=== PATIENT | female | born 1945 | race Caucasian/White ===

== ENCOUNTER 2018-08-18 14:29 | Outpatient (REF) | payer MEDICARE, MEDICAID, SELFPAY ==
[2018-08-23 12:03] LABS: Lyme Ab w Rflx to Lyme Confirm Negative
[2018-08-23 16:53] LABS: Anaplasma phagocytophilum Negative (Negative); B. miyamotoi PCR Negative (Negative); Babesia divergens/MO-1 Negative (Negative); Babesia duncani Negative (Negative); Babesia microti Negative (Negative); Ehrlichia chaffeensis Negative (Negative); Ehrlichia ewingii/canis Negative (Negative); Ehrlichia muris eauclairensis Negative (Negative)
== END 2018-08-18 14:49 ==
LOC: NCHCN 14:29
PROVIDERS: PCP Registered Nurse; Visit Provider Registered Nurse
DX: W57.XXXA Bitten or stung by nonvenomous insect and other nonvenomous arthropods, initial encounter (principal); T14.8XXA Other injury of unspecified body region, initial encounter
CPT/HCPCS: 87798; 86618

== ENCOUNTER 2019-06-23 17:04 | Outpatient (REF) | payer MEDICARE, MEDICAID, SELFPAY | END 2019-06-23 17:24 | LOC: NCHCN 17:04 | PROVIDERS: PCP Registered Nurse; Visit Provider Nurse Practitioner Family | DX: Z11.59 Encounter for screening for other viral diseases (principal) ==

== ENCOUNTER 2019-06-23 17:06 | Outpatient (REF) | payer MEDICARE, MEDICAID, SELFPAY ==
[2019-06-25 12:05] LABS: COVID-19 RT-PCR UVMMC Result Negative (Negative)
== END 2019-06-23 17:26 ==
LOC: NCHCN 17:06
PROVIDERS: PCP Registered Nurse; Visit Provider Nurse Practitioner Family
DX: J02.9 Acute pharyngitis, unspecified (principal); Z11.59 Encounter for screening for other viral diseases
CPT/HCPCS: U0003; 87070

== ENCOUNTER 2019-08-11 14:21 | Outpatient (REF) | payer MEDICARE, MEDICAID, SELFPAY ==
[2019-08-12 18:12] LABS: COVID-19 RT-PCR UVMMC Result Negative (Negative)
== END 2019-08-11 14:41 ==
LOC: NCHCN 14:21
PROVIDERS: PCP Registered Nurse; Visit Provider Nurse Practitioner Family
DX: Z03.818 Encounter for observation for suspected exposure to other biological agents ruled out (principal); J02.9 Acute pharyngitis, unspecified
CPT/HCPCS: U0003

== ENCOUNTER 2019-09-28 12:42 | Outpatient (REF) | payer MEDICARE, MEDICAID, SELFPAY ==
[2019-09-28 20:39] LABS: HCT 43.8 % (36.0-46.0); HGB 14.7 g/dL (11.2-15.7); MCH 30.5 pg (27.0-33.0); MCHC 33.6 % (32.0-36.0); MCV 90.9 fL (80-95); MPV 10.3 fL (8.0-11.0); Platelet Count 289 10^3/uL (130-400); RBC 4.82 10^6/uL (3.93-5.22); RDW 11.9 % (11.7-14.6); RDW-SD 39.5 fL; WBC 10.41 10^3/uL (4.4-10.8)
[2019-09-28 20:48] LABS: Anion Gap 7.3 mmol/L (3-11); BUN 13 mg/dL (7-18); C-Reactive Protein 0.18 mg/dL (0.0-0.3); CO2 28.7 mmol/L (21.0-32.0); CREATININE 0.71 mg/dL (0.55-1.02); Calcium 10.1 mg/dL (8.5-10.1); Chloride 105 mmol/L (98-107); Glucose 100 mg/dL (74-106); Potassium 4.2 mmol/L (3.5-5.1); Sodium 141 mmol/L (136-145)
== END 2019-09-28 13:02 ==
LOC: NCHCN 12:42
PROVIDERS: PCP Registered Nurse; Visit Provider Nurse Practitioner Family
DX: R10.9 Unspecified abdominal pain (principal)
CPT/HCPCS: 80048; 85027; 86140

== ENCOUNTER 2019-11-10 01:31 | Outpatient (CLI) | payer MEDICARE, MEDICAID, SELFPAY ==
--- NOTE | 2019-11-10 15:04 | DI.RAD_ITS ---
EXAM: XR KNEE RT 3V AP,LAT,LEANN CLINICAL HISTORY: RT KNEE PAIN,M25.561. TECHNIQUE: 2D digital imaging was performed. COMPARISON: No exams were available for comparison FINDINGS: BONES: No acute fracture is present. No bony destructive lesion is seen. JOINTS: The knee is normally aligned. No joint effusion is seen. Tricompartment degenerative changes are seen characterized by joint space narrowing and periarticular spurring. SOFT TISSUE: Normal. IMPRESSION: Jvfi-fv-aqrgjctf degenerative changes of the right knee. DATA REPOSITORY: RADIATION DOSE DELIVERED:
== END 2019-11-10 01:51 ==
PROVIDERS: PCP Registered Nurse; Visit Provider Physician Assistant
DX: M17.11 Unilateral primary osteoarthritis, right knee (principal)
CPT/HCPCS: 73562

== ENCOUNTER 2019-11-23 16:39 | Outpatient (REF) | payer MEDICARE, MEDICAID, SELFPAY ==
--- NOTE | 2019-11-23 13:05 | SKI_PTH ---
PATIENT: Chichi Kaur LOC: [facility] U#:[id number] AGE/SX: 74/F ROOM: RE11/23/[address]: Cesar Klein : 1945 BED: DIS: 11/23/2019 SPEC #: [id number] RECD: 11/24/19 12:51 STATUS: EVETTE REQ #: [id number] SONIA: 11/23/19 13:[address]: Cesar Klein DEPT: Surgical Specimen RECD BY: Savannah Abdi ENTERED: 11/24/19 12:52 SP TYPE: RUSS GUEVARA DR: Liane Vera Tissues: 1 - SKIN BIOPSY(SHAVE/PUNCH) 2 - SKIN BIOPSY(SHAVE/PUNCH) Procedures: SKIN LEVEL 4 Comments: [id number]
== END 2019-11-23 16:59 ==
LOC: NCHCN 16:39
PROVIDERS: PCP Registered Nurse; Visit Provider Physician Assistant
DX: L82.1 Other seborrheic keratosis (principal)
CPT/HCPCS: 88305

== ENCOUNTER 2020-02-03 16:22 | Outpatient (REF) | payer MEDICARE, MEDICAID, SELFPAY ==
[2020-02-06 16:07] LABS: COVID-19 RT-PCR UVMMC Result Negative (Negative)
== END 2020-02-03 16:42 ==
LOC: NCHCN 16:22
PROVIDERS: PCP Registered Nurse; Visit Provider Nurse Practitioner Family
DX: R51.9 Headache, unspecified (principal); R11.0 Nausea
CPT/HCPCS: U0003

== ENCOUNTER 2020-06-21 16:06 | Outpatient (REF) | payer MEDICARE, MEDICAID, SELFPAY ==
[2020-06-21 15:40] LABS: Abs Immature Grans 0.02 10^3/uL (0.0-0.06); Absolute Basophil Count 0.04 10^3/uL (0.0-0.2); Absolute Eosinophil Count 0.05 10^3/uL (0.0-0.7); Absolute Lymphocyte Count 1.67 10^3/uL (1.2-3.4); Absolute Neutrophil Count 4.82 10^3/uL (1.2-6.7); Basophils % 0.6; Eosinophils % 0.7; HCT 41.7 % (36.0-46.0); HGB 14.1 g/dL (11.2-15.7); Immature Grans % 0.3; Lymphocytes % 23.9; MCH 30.3 pg (27.0-33.0); MCHC 33.8 % (32.0-36.0); MCV 89.7 fL (80-95); MPV 10.5 fL (8.0-11.0); Monocytes % 5.7; Neutrophils % 68.8; Nucleated RBC 0 %; Platelet Count 284 10^3/uL (130-400); RBC 4.65 10^6/uL (3.93-5.22); RDW 11.9 % (11.7-14.6); RDW-SD 38.7 fL
[2020-06-21 15:57] LABS: ALT 26 U/L (14-59); AST 16 U/L (15-37); Albumin 4.1 g/dL (3.4-5.0); Alkaline Phosphatase 55 U/L (46-116); Anion Gap 8.7 mmol/L (3-11); BUN 19 mg/dL (7-18); Bilirubin, Total 0.5 mg/dL (0.2-1.0); CO2 28.3 mmol/L (21.0-32.0); CREATININE 0.7 mg/dL (0.55-1.02); Calcium 10.3 mg/dL (8.5-10.1); Chloride 107 mmol/L (98-107); Glucose 133 mg/dL (74-106); Potassium 3.9 mmol/L (3.5-5.1); Sodium 144 mmol/L (136-145)
== END 2020-06-21 16:07 | disposition home or self-care (01) ==
LOC: NCHCN 16:06
PROVIDERS: PCP Registered Nurse; Visit Provider Physician Assistant Medical
DX: R19.7 Diarrhea, unspecified (principal)
CPT/HCPCS: 80053; 85025

== ENCOUNTER 2020-06-22 17:24 | Outpatient (REF) | payer MEDICARE, MEDICAID, SELFPAY ==
[2020-06-22 12:03] LABS: C Diff PCR Negative (Negative)
[2020-06-23 11:02] LABS: Campylobacter PCR Negative (Negative); Salmonella PCR Negative (Negative); Shiga Toxin PCR Negative (Negative); Shigella/Enteroinvasive Ecoli Negative (Negative)
== END 2020-06-22 17:25 | disposition home or self-care (01) ==
LOC: NCHCN 17:24
PROVIDERS: PCP Registered Nurse; Visit Provider Physician Assistant Medical
DX: R19.7 Diarrhea, unspecified (principal)
CPT/HCPCS: 87329; 87493; 87505; 83630; 87177

== ENCOUNTER 2020-06-26 02:13 | Outpatient (CLI) | payer MEDICARE, MEDICAID, SELFPAY ==
--- NOTE | 2020-06-26 | DI.US_ITS ---
Exam(s) US ABDOMEN LIMITED EXAM: US ABDOMEN LIMITED INDICATION: EPIGASTRIC PAIN,,R10.13 COMPARISON: No exams were available for comparison TECHNIQUE: Ultrasound abdomen performed using standard protocol FINDINGS: Abdominal ultrasound was performed according to the usual protocol. The liver is normal in size and shape. No focal hepatic lesion seen. Note is made of cholelithiasis. There is no gallbladder wall thickening. There is no biliary dilata tion. There is no pericholecystic fluid collection. Pancreas appears intact as visualized. Spleen is unremarkable in appearance with no focal lesion. Kidneys are normal in size and shape. No renal mass, hydronephrosis, or nephrolithiasis. Abdominal aorta and IVC are of normal diameter. IMPRESSION: Cholelithiasis. Examination is otherwise within normal limits.
== END 2020-06-26 02:33 ==
PROVIDERS: PCP Registered Nurse; Visit Provider Physician Assistant Medical
DX: R10.13 Epigastric pain (principal); K80.20 Calculus of gallbladder without cholecystitis without obstruction
CPT/HCPCS: 76705

== ENCOUNTER 2020-07-18 17:56 | Emergency (ER) | payer MEDICARE, MEDICAID, SELFPAY ==
[2020-07-18 18:04] VITALS: BP 160/91; PULSE 83; RESP 18; TEMP 36.6; O2SAT 96
[2020-07-18 18:34] LABS: Bilirubin Negative (Negative); Blood Large (Negative); Clarity Clear (Clear); Glucose Negative (Negative); Ketones Negative (Negative); Leukocyte Esterase Small (Negative); Nitrite Positive (Negative); Specific Gravity >= 1.030 (1.005-1.025); Urobilinogen 0.2 EU/dL (Up TO 0.2); pH 5.5 (5-8)
[2020-07-18 18:42] LABS: Bacteria Few HPF (Negative); C & S Indicated? Yes; Casts Negative LPF (Negative); Crystals Negative HPF (Negative); Epithelial Cells Rare HPF (Negative); Mucus Trace (Negative); Other Cells Negative (Negative); WBC >50 HPF (0-5)
--- NOTE | 2020-07-18 20:03 | W.ED.GENAD ---
Discharge Plan Disposition Patient Disposition: HOME Condition: Stable Discharge Details Clinical Impression: Acute UTI Primary Care Provider: Cesar Klein ED Provider: Alexandre Cotter Home Meds and New Rx's Prescriptions: New nitrofurantoin monohyd/m-cryst [Macrobid] 100 mg capsule 100 mg PO BID Qty: 14 RF: 0 Continued diazepam [Valium] 5 mg tablet 5 mg PO DAILY PRNRF: 0 hydrochlorothiazide 12.5 mg tablet 12.5 mg PO DAILY PRNRF: 0 Excedrin Extra Strength 250-250-65 mg tablet 1 tab PO ONCE RF: 0 carvedilol 6.25 mg tablet 6.25 mg PO BID RF: 0 Discharge Instructions Instructions: Urinary Tract Infection in Women (ED) Additional Instructions: Macrobid as directed. Mzen-ukt-dvxfhlt Azo as directed. Plenty of fluids to avoid dehydration. Please watch for new or worsening symptoms and return to the ER for any concerns. Otherwise contact your primary care office tomorrow to discuss your ER visit and need for outpatient reevaluation. Medical Decision Making 75-year-old female, past medical history of hypertension, presents to the ER concern for UTI. Clinically she appears well, nontoxic, afebrile, abdomen, back unremarkable. Will obtain urinalysis and reassess. Urinalysis reveals large blood positive nitrate, 10-20 red cells, greater than 50 white cells. Urinalysis consistent with UTI. Clinically no suspicion for infected stone. Discussed options, patient agreeable to antibiotics. She does not want to take Keflex or Bactrim. She is agreeable to taking the Macrobid. First dose to be given now. She has no additional questions or concerns and is comfortable discharge at this time encouraged to return to the ER for new or worsening symptoms. Medical Records Medical records reviewed: Yes I reviewed the patient's medical records. Lab Data Lab results reviewed: Yes I reviewed the patient's lab results. Labs: 07/18/20 18:18 Urine - Reflex from Ua Urine Culture - Pending Laboratory Tests Range/Units 07/18/20 18:18 Urine Color (Yellow) Yellow Urine Clarity (Clear) Clear Urine pH (5-8) 5.5 Ur Specific [place] (1.005-1.025) >= 1.030 H Urine Protein (Negative) mg/dL 100 H Urine Ketones (Negative) mg/dL Negative Urine Blood (Negative) Large H Urine Nitrite (Negative) Positive H Urine Bilirubin (Negative) Negative Urine Urobilinogen (Up TO 0.2) EU/dL 0.2 Ur Leukocyte Esterase (Negative) Small H Urine RBC (0-2) HPF 10-20 H Urine WBC (0-5) HPF >50 H Ur Epithelial Cells (Negative) HPF Rare Urine Crystals (Negative) HPF Negative Urine Bacteria (Negative) HPF Few Urine Casts (Negative) LPF Negative Urine Mucus (Negative) Trace Urine Other (Negative) Negative Ur Culture Indicated? Yes Urine Glucose (Negative) mg/dL Negative HPI General Mode of arrival: ambulatory. Date/Time Provider Initiated Documentation: 07/18/20 18:02. Limitations to Documentation: no limitations. Information obtained by: patient. HPI Narrative: This is a 75-year-old female who reports past history of hypertension, sensitivity to most medications, presenting to the ER for concern of the potential UTI. She reports urinary frequency, feeling like she is not emptying completely, also pressure in her suprapubic region. She denies any fever, abdominal pain, nausea, vomiting, vaginal bleeding or discharge, dysuria, back pain, diarrhea work constipation. Patient reports that she had a UTI previously that felt similarly. She has no additional questions or concerns at this time. Related Data Home Medications Medication Instructions Recorded Confirmed lhbjykg-sgijoxcjqrkzb-gpneccgc 250 1 tab PO ONCE 07/12/20 07/18/20 mg-250 mg-65 mg tablet carvedilol 6.25 mg tablet 6.25 mg PO BID tab 07/12/20 07/18/20 diazepam 5 mg tablet 5 mg PO DAILY PRN tab 07/12/20 07/18/20 hydrochlorothiazide 12.5 mg tablet 12.5 mg PO DAILY PRN 07/12/20 07/18/20 nitrofurantoin monohyd/m-cryst 100 mg PO BID #14 cap 07/18/20 [Macrobid] Previous Rx's Medication Instructions Recorded nitrofurantoin monohyd/m-cryst 100 mg PO BID #14 cap 07/18/20 [Macrobid] Allergies Allergy/AdvReac Type Severity Reaction Status Date / Time aspartame Allergy Severe anaphylaxis Verified 07/18/20 18:12 psyllium [From Metamucil] Allergy Severe anaphylaxis Verified 07/18/20 18:12 metronidazole [From Flagyl] Allergy Unknown violent Verified 07/18/20 18:12 reaction General Stated Complaint: Urinary SHOBHA: 3 Review of Systems Constitutional Constitutional: Denies fever(s) Cardiovascular Cardiovascular: Denies chest pain and Denies dyspnea Respiratory Respiratory: Denies cough and Denies dyspnea Gastrointestinal Gastrointestinal: Denies abdominal pain, Denies nausea and Denies vomiting Genitourinary Genitourinary: Reports dysuria and Reports urinary urgency Musculoskeletal Musculoskeletal: Denies back pain Integumentary/Breasts Skin/Breast: Denies rash [facility], [facility] Social History Smoking/Tobacco Use Status: Never Smoking risk assessment performed?: Yes Alcohol Intake: current Alcohol Intake frequency: a few times a week Drug use: Never Do you feel safe at home: Yes Do you feel safe in your relationship?: Yes Exam Const General: cooperative, healthy appearing, comfortable and no acute distress Orientation: alert and awake HENMT Head: normal to inspection, normocephalic and atraumatic Eyes General: appearance normal, both eyes and all related structures Conjunctivae: conjunctivae normal Neck Neck: normal visual inspection, trachea midline and supple Resp Effort & Inspection: normal respiratory effort and able to speak in complete sentences Auscultation: clear to auscultation bilaterally Cardio Rate: regular rate Rhythm: regular rhythm GI Palpation: soft, not firm, no guarding, no pulsatile masses and nontender Back/Spine/Pelvis Back: No back tenderness Skin General skin exam: no rashes or lesions noted Neuro General: patient alert, patient awake, moves all extremities and no focal motor deficits Cognition: normal cognition Speech: speech normal Gait: normal gait Sensory Exam: no sensory deficits noted Psych Appearance: grossly normal Mental Status: mental status grossly normal Course Vital Signs Vital signs: Vital Signs Temperature 36.6 C 07/18/20 18:04 Pulse 83 07/18/20 18:04 Respiratory Rate 18 07/18/20 18:04 Blood Pressure 160/91 H 07/18/20 18:04 Pulse Oximetry 96 07/18/20 18:04 Temperature 36.6 C 07/18/20 18:04 Temperature Source Temporal Artery Scan 07/18/20 18:04 Pulse 83 07/18/20 18:04 Respiratory Rate 18 07/18/20 18:04 Respiratory Effort Non-Labored 07/18/20 18:10 Blood Pressure 160/91 H 07/18/20 18:04 Blood Pressure Position Sitting 07/18/20 18:04 Pulse Oximetry 96 07/18/20 18:04 Oxygen Delivery Method Room Air 07/18/20 18:04 Oxygen Flow Rate 0 07/18/20 18:04 Pain Level 10 07/18/20 18:04 Lab/Test Results Lab/Test Results: 07/18/20 18:18 Urine - Reflex from Ua Urine Culture - Pending Laboratory Tests Range/Units 07/18/20 18:18 Urine Color (Yellow) Yellow Urine Clarity (Clear) Clear Urine pH (5-8) 5.5 Ur Specific [place] (1.005-1.025) >= 1.030 H Urine Protein (Negative) mg/dL 100 H Urine Ketones (Negative) mg/dL Negative Urine Blood (Negative) Large H Urine Nitrite (Negative) Positive H Urine Bilirubin (Negative) Negative Urine Urobilinogen (Up TO 0.2) EU/dL 0.2 Ur Leukocyte Esterase (Negative) Small H Urine RBC (0-2) HPF 10-20 H Urine WBC (0-5) HPF >50 H Ur Epithelial Cells (Negative) HPF Rare Urine Crystals (Negative) HPF Negative Urine Bacteria (Negative) HPF Few Urine Casts (Negative) LPF Negative Urine Mucus (Negative) Trace Urine Other (Negative) Negative Ur Culture Indicated? Yes Urine Glucose (Negative) mg/dL Negative
[2020-07-18] MEDS: MacroBID 100 MG CAP PO (20:09)
== END 2020-07-18 20:24 | disposition home or self-care (01) ==
PROVIDERS: Emergency Provider Physician Assistant; PCP Physician Assistant
DX: N39.0 Urinary tract infection, site not specified (principal)
CPT/HCPCS: 87077; 99283; 81003; 81015; 87086; 87186

== ENCOUNTER → 2020-07-20 10:55 | Outpatient (BNVA) | payer MEDICARE, MEDICAID, SELFPAY | PROVIDERS: PCP Physician Assistant; Referring Provider Registered Nurse; Visit Provider Surgery | DX: R10.13 Epigastric pain (principal); R10.11 Right upper quadrant pain | CPT/HCPCS: 99203; 99214 ==

== ENCOUNTER → 2020-09-18 10:11 | Outpatient (BNVA) | payer MEDICARE, MEDICAID, SELFPAY | PROVIDERS: PCP Physician Assistant; Referring Provider Physician Assistant; Visit Provider Surgery | DX: K80.20 Calculus of gallbladder without cholecystitis without obstruction (principal); R10.13 Epigastric pain | CPT/HCPCS: 99212; 99213 ==

== ENCOUNTER 2020-09-21 02:40 | Outpatient (CLI) | payer MEDICARE, MEDICAID, SELFPAY ==
[2020-09-21 11:51] LABS: Source Nasal/Nares
[2020-09-21 13:39] LABS: COVID-19 PCR Negative (Negative)
== END 2020-09-21 02:41 | disposition home or self-care (01) ==
LOC: LBO 02:40
PROVIDERS: PCP Physician Assistant; Visit Provider Surgery
DX: Z20.822 Contact with and (suspected) exposure to COVID-19 (principal); Z01.818 Encounter for other preprocedural examination
CPT/HCPCS: 87635

== ENCOUNTER 2020-09-24 11:10 | Day surgery (SDC) | payer MEDICARE, MEDICAID, SELFPAY ==
--- NOTE | 2020-09-24 06:56 | W.PM.ENDDOP ---
Date of service: 09/24/20 Time of Service: 12:29 Endoscopy Report DATE OF PROCEDURE: 09/24/20 PRE-OP DIAGNOSIS: Abdominal pain POST-OP DIAGNOSIS: other (Gastritis with ulcers, esophagitis, Hiatal hernia) PROCEDURE: EGD with biopsies SURGEON: Dolly Manzanares ANESTHESIA TYPE: General:No Airway (ASA 2/Chidi Renee CRNA) ESTIMATED BLOOD LOSS: 3 PATHOLOGY: other (Antrum Bx, GE junction bx, ) COMPLICATIONS: None DISPOSITION: same day INDICATIONS: Epigastric pain: I had a long discussion with Ms. Kaur regarding her symptoms. As her pain started after having violent vomiting and diarrhea from possible food poisoning and that on exam her pain is really epigastric I suspect she has some gastritis. The antibiotics are probably not helping that at this point. She is on probiotics. She didn't start the Pepcid I prescribed. We discussed doing an upper endoscopy to look for inflammation in her stomach. I discussed the procedure as well as the risks and benefits and she agrees to proceed. Covid testing prior to procedure Risks, benefits and complications have been reviewed. Complications include but are not limited to bleeding, pain, perforation, sore throat, aspiration, and adverse reaction to the medications. Questions were entertained and answered to their satisfaction and they wished to proceed. No guarantees were given or implied. EGD under sedation FINDINGS: Gastritis with ? shallow ulcers Inflammation at the GE junction Small Hiatal hernia PROCEDURE DESCRIPTION: After informed consent was obtained the patient was take to the procedure room and placed in a supine position. Monitors were applied and a time out was done. The patients name, date of , procedure type, allergies to medications and metal in their body was reviewed. A bite block was placed and the patient was sedated. Once sedated and comfortable the gastroscope was advanced through the oropharynx which was grossly normal into the esophagus. The proximal and mid-esophagus were normal. In the distal esophagus there was mild inflammation noted. The scope was advanced into the stomach and through the pylorus into the 3rd portion of the duodenum. The duodenum was noted to be normal. The scope was retracted back into the stomach and biopsies were done to rule out H. pylori. There were some shallow ulcers. The scope was retroflexed. The cardia and fundus were noted to be normal. There was a small hiatal hernia noted. The scope was retracted back into the esophagus and biopsies were done of the GE junction to rule out Benitez's. The Z line was regular. The GE junction was at 34 cm. The scope was removed and the patient was woken up and taken back to [facility] in stable condition.
--- NOTE | 2020-09-24 06:57 | W.PM.DSUDISC ---
Discharge Plan Disposition Patient Disposition: HOME Condition: Good Discharge Details Reason For Visit: EGD Attending Provider: Dolly Manzanares Primary Care Provider: Cesar Klein Home Meds and New Rx's Prescriptions: Continued multivitamin Tablet 1 tab PO DAILY RF: 0 diazepam [Valium] 5 mg tablet 5 mg PO DAILY PRNRF: 0 hydrochlorothiazide 12.5 mg tablet 12.5 mg PO DAILY PRNRF: 0 Excedrin Extra Strength 250-250-65 mg tablet 1 tab PO ONCE RF: 0 carvedilol 6.25 mg tablet 6.25 mg PO BID RF: 0 potassium chloride 10 mEq Tablet Extended Release 10 meq PO PRN PRNRF: 0 Discharge Instructions Instructions: Diet for Stomach Ulcers and Gastritis (ED), Gastritis (DC), Esophagitis (DC), Hiatal Hernia (DC) Additional Instructions: Findings: inflammation of the stomach and esophagus Please call if you develop: fevers >101.5 Nausea or Vomiting Abdominal pain that is not transient Rectal bleeding that is more then a tbsp A hard abdomen and inability to pass gas DAY SURGERY UNIT POST ENDOSCOPY INSTRUCTIONS Instructions for everyone who is given Anesthesia: For your safety, please do the following for the next 24 Hours: a. Do not drive or operate dangerous equipment b. Do not drink alcohol beverages or use any recreational drugs for the first 24 hours or while taking pain medications. The medications in your body may have a reaction that can be dangerous. c. Do not make any important decisions or sign any important papers 1. Generally there are no restrictions on your activity after a day or so has gone by, but you may feel a bit fatigued for a few days. 2. After you arrive home you may have a light meal and return to a normal diet as you can tolerate it without feeling sick to your stomach. 3. After surgery, you may feel pain or discomfort. This should be only transient, but if it persists please contact your doctor. 4. If there are any questions regarding the findings of your procedure, please feel free to contact your doctor. 6. If you are unable to contact your doctor with a problem, contact the hospital at [phone]. 7. Continue all your regular medications unless directed otherwise. I understand the above instructions and have no questions. Signature of Patient or Responsible Adult Escort Date/Time Name of Responsible Adult Escort Signature of Nurse Date/Time Activity:: Activity as Tolerated Diet:: As Tolerated Discharge Orders Discharge Orders: Discharge Order (Routine); Ordered 09/24/20 Ordered By: Dolly Manzanares
[2020-09-24 11:24] VITALS: BP 178/111; RESP 84; TEMP 36.7; O2SAT 98
--- NOTE | 2020-09-24 11:51 | ANES.PREOP_ITS ---
General Info Date of Service Date Performed: 09/24/20 Height: 5 ft 5 in Weight: 57.3 kg Body Mass Index (BMI): 20.9 Surgical Procedure: Operation Date: 09/24/20 11:35 Proposed Procedures Side Surgeon p Gastroscopy Dolly Manzanares MD Meds Allergies and Home Medications Allergies Allergy/AdvReac Type Severity Reaction Status Date / Time aspartame Allergy Severe anaphylaxis Verified 09/24/20 11:38 psyllium [From Metamucil] Allergy Severe anaphylaxis Verified 09/24/20 11:38 metronidazole [From Flagyl] Allergy Unknown violent Verified 09/24/20 11:38 reaction Home Medication Medication Instructions Recorded qthjwah-stvjlwkfugtib-obtgpinj 250 1 tab PO ONCE 07/12/20 mg-250 mg-65 mg tablet carvedilol 6.25 mg tablet 6.25 mg PO BID tab 07/12/20 diazepam 5 mg tablet 5 mg PO DAILY PRN tab 07/12/20 hydrochlorothiazide 12.5 mg tablet 12.5 mg PO DAILY PRN 07/12/20 multivitamin 1 tab PO DAILY 07/20/20 potassium chloride 10 meq PO PRN PRN 09/24/20 Current Visit Medications: Current Medications Generic Name Dose Route Start Last Admin Trade Name Freq PRN Reason Stop Dose Admin Hyoscyamine Sulfate 0.125 mg 09/24/20 06:57 Hyoscyamine 0.125 Mg Sl/Oral/Chew SL DIRECTED PRN Ringer's Solution 1,000 mls @ 80 mls/hr 09/24/20 06:00 IV 10/21/20 23:59 INFUSION [facility] IV Miscellaneous Supplies 1 each 09/24/20 06:00 Iv Access IV 10/21/20 23:59 DIRECTED [facility] Ondansetron HCl 4 mg 09/24/20 06:57 Ondansetron 4 Mg/2 Ml Vial IVP Q4H PRN PRN Nausea / Vomiting Sodium Chloride 0 ml 09/24/20 06:00 Normal Saline Flush 10 Ml Syr IV 10/21/20 23:59 PRN PRN Sodium Chloride 0 ml 09/24/20 06:00 Normal Saline 10 Ml Vial IJ 10/21/20 23:59 DIRECTED PRN Sterile Water 0 ml 09/24/20 06:00 Water,Injection,Sterile 10 Ml Vial IJ 10/21/20 23:59 DIRECTED PRN PFSH Active Problems Active Problems: Problem Status Onset Code Epigastric pain R10.13 Diarrhea R19.7 Constipation K59.00 Right lower quadrant abdominal pain R10.31 Acute UTI N39.0 Cholelithiasis K80.20 Weight loss R63.4 Anxiety F41.9 Seborrheic keratoses L82.1 Right knee pain M25.561 Hiatal hernia K44.9 Essential hypertension I10 Bilateral cataracts H26.9 Irritable bowel syndrome with diarrhea K58.0 Internal hemorrhoids K64.8 Medical History Medical History Anxiety Asymmetrical sensorineural hearing loss Bilateral cataracts Essential hypertension Hiatal hernia Internal hemorrhoids Irritable bowel syndrome with diarrhea Referred otalgia of right ear Right knee pain Seborrheic keratoses Sensation of fullness in both ears Weight loss Surgical History Surgical History Hx of hysterectomy Tobacco Smoking/Tobacco Use Status: Never Alcohol Alcohol Intake: current Alcohol intake frequency: 0-2 drinks per day Alcohol type: beer Substance Use Substance use: Never Substance use type: does not use Vital Signs and Lab Results Vital Signs Most Recent Vital Signs in EMR: Most Recent Vital Signs Temp Resp BP Pulse Ox 36.7 C 84 H 178/111 H 98 09/24/20 11:24 09/24/20 11:24 09/24/20 11:24 09/24/20 11:24 Lab Results Blood Type / Crossmatch: No Data to Display Complete Blood Count: No Data to Display Complete Metabolic Panel: No Data to Display Liver Function Panel: No Data to Display Coagulation Panel: No Data to Display Cardiac Panel: No Data to Display Arterial Blood Gas: No Data to Display Venous Blood Gas: No Data to Display Pancreas Panel: No Data to Display Thyroid Panel: No Data to Display Infectious Disease: Coronavirus (COVID-19)(PCR) Negative (Negative) 09/21/20 08:30 09/21/20 Coronavirus 2019 Source Nasal/Nares 09/21/20 08:30 09/21/20 Blood Cultures: No Data to Display Toxicology Panel: No Data to Display Anesthesia Assessment and Plan Anesthesia History Personal History: No History of Anesthesia Complications and Delayed Emergence Family History: No Family History of Anesthesia Complications Exercise Tolerance Exercise Tolerance: Metabolic Equivalents>4 Pertinent Negatives Pertinent Negatives: No Symptoms of GERD, No Major Cardiovascular Symptoms or Complaints and No Major Pulmonary Symptoms or Complaints Cardiac & Pulmonary Exam Cardiac Exam: Normal S1/S2 Heart Sounds Pulmonary Exam: Clear Bilateral Breath Sounds Airway Exam Known Difficult Airway: No Mallampati Class: 2 Mouth Opening: Normal (> 3cm) Thyromental Distance: Greater than 3 cm Neck Range of Motion: Full ROM Neck Circumference: Normal Teeth Condition: Normal Dentition ASA Classification ASA Score: ASA 2 Emergency Case?: No NPO Status NPO Status: NPO Clears >2 hours, Solids >8 hours Anesthesia Plan Resuscitation Status: Full Code Anesthesia Technique: General Anesthesia Airway Planned: Natural Airway Monitors Used: Standard Monitors
[2020-09-24] MEDS: Lactated Ringers 1,000 ML 80 ML IV (11:53)
[2020-09-24 12:01] VITALS: BMI 20.9
--- NOTE | 2020-09-24 12:23 | STOM_PTH ---
PATIENT: Chichi Kaur LOC: [facility] U#:[id number] AGE/SX: 75/F ROOM: RE09/24/[address]: Dolly Manzanares MD : 1945 BED: DIS: 09/24/2020 SPEC #: [id number] RECD: 09/24/20 12:59 STATUS: EVETTE REQ #: [id number] SONIA: 09/24/20 12:[address]: Dolly Manzanares DEPT: Surgical Specimen RECD BY: Savannah Abdi ENTERED: 09/24/20 13:00 SP TYPE: STOMACH OTHR DR: Cesar Klein Tissues: 1 - STOMACH BIOPSY 2 - ESOPHAGUS BIOPSY Procedures: GROSS AND MICRO LEVEL 4 Comments: [id number]
[2020-09-24 12:30] VITALS: BP 114/79; PULSE 74; RESP 16; TEMP 36.7; O2SAT 97
[2020-09-24 12:59] VITALS: BP 155/92; PULSE 67; RESP 16; TEMP 36.4; O2SAT 96
--- NOTE | 2020-09-24 14:13 | W.ANESPOSTOP ---
Postoperative Evaluation Date, Time and Location Date Performed: 09/24/20 Time Performed: 13:05 Patient Location: Day Surgery Unit Vital Signs Most Recent Imported Vital Signs: Most Recent Vital Signs Temp Pulse Resp BP Pulse Ox 36.4 C L 67 16 155/92 H 96 09/24/20 12:59 09/24/20 12:59 09/24/20 12:59 09/24/20 12:59 09/24/20 12:59 Pain Score Most Recent Pain Score: Most Recent Pain Score Pain Level 1 09/24/20 12:59 Assessment Mental Status: Arousable with meaningful communication Airway and Respiratory Function: Patent airway with normal (patient baseline) respiratory exam Cardiovascular Function: Hemodynamically Stable Hydration Status: Adequately Hydrated Nausea & Vomiting: No Nausea or Vomiting Pain: Pt. Denies Any Pain Peripheral Nerve Block: Patient did not receive a nerve block
== END 2020-09-24 13:25 | disposition home or self-care (01) ==
LOC: SUR 11:11
PROVIDERS: PCP Physician Assistant; Visit Provider Surgery
PROC: 0DJ68ZZ Inspection of Stomach, Via Natural or Artificial Opening Endoscopic (ICD-10-PCS; CPT 43235; principal; 2020-09-24 11:30)
DX: K25.9 Gastric ulcer, unspecified as acute or chronic, without hemorrhage or perforation (principal); K29.70 Gastritis, unspecified, without bleeding; K20.90 Esophagitis, unspecified without bleeding; K44.9 Diaphragmatic hernia without obstruction or gangrene; K31.89 Other diseases of stomach and duodenum; K22.70 Barrett's esophagus without dysplasia
CPT/HCPCS: 43239; 88305; J2001

== ENCOUNTER 2020-12-24 09:49 | Outpatient (REF) | payer MEDICARE, MEDICAID, SELFPAY ==
[2020-12-24 16:07] LABS: Abs Immature Grans 0.01 10^3/uL (0.0-0.06); Absolute Basophil Count 0.05 10^3/uL (0.0-0.2); Absolute Eosinophil Count 0.08 10^3/uL (0.0-0.7); Absolute Monocyte Count 0.54 10^3/uL (0.1-0.8); Absolute Neutrophil Count 2.17 10^3/uL (1.2-6.7); Basophils % 1.2; Eosinophils % 1.9; HCT 44.7 % (36.0-46.0); HGB 14.3 g/dL (11.2-15.7); Immature Grans % 0.2; Lymphocytes % 31.3; MCH 29.9 pg (27.0-33.0); MCV 93.3 fL (80-95); MPV 10.6 fL (8.0-11.0); Neutrophils % 52.4; Nucleated RBC 0 %; Platelet Count 275 10^3/uL (130-400); RBC 4.79 10^6/uL (3.93-5.22); RDW 11.7 % (11.7-14.6); WBC 4.15 10^3/uL (4.4-10.8)
[2020-12-24 16:38] LABS: ALT 28 U/L (14-59); AST 19 U/L (15-37); Alkaline Phosphatase 55 U/L (46-116); Anion Gap 7.3 mmol/L (3-11); BUN 15 mg/dL (7-18); Bilirubin, Total 0.4 mg/dL (0.2-1.0); CO2 30.7 mmol/L (21.0-32.0); CREATININE 0.7 mg/dL (0.55-1.02); Calcium 10.1 mg/dL (8.5-10.1); Calculated LDL 118 mg/dL (<100); Chloride 106 mmol/L (98-107); Cholesterol 195 mg/dL (<200); Glucose 98 mg/dL (74-106); HDL Cholesterol 54 mg/dL (40-60); Potassium 4.6 mmol/L (3.5-5.1); Sodium 144 mmol/L (136-145); Total Protein 6.9 g/dL (6.4-8.2); Triglyceride 116 mg/dL (<150)
== END 2020-12-24 09:50 | disposition home or self-care (01) ==
LOC: NCHCN 09:49
PROVIDERS: PCP Physician Assistant; Visit Provider Physician Assistant
DX: I10 Essential (primary) hypertension (principal); R03.0 Elevated blood-pressure reading, without diagnosis of hypertension; Z86.39 Personal history of other endocrine, nutritional and metabolic disease; R63.4 Abnormal weight loss
CPT/HCPCS: 80053; 80061; 85025

== ENCOUNTER 2021-04-30 00:34 | Outpatient (CLI) | payer MEDICARE, MEDICAID, SELFPAY ==
--- NOTE | 2021-04-30 11:30 | DI.MAMMO_ITS ---
Exam(s) MAMMO SCREENING EXAM: MAMMO SCREENING CLINICAL HISTORY: SCREENING, Z12.39 TECHNIQUE: Mammograms were interpreted according to the usual protocol including computer analysis w [employer] CAD system, tomosynthesis and C-view imaging. COMPARISON: 2011 and 2015 FINDINGS: The breasts are composed of scattered fibroglandular densities, Breast Density category B. No suspicious masses or suspicious microcalcifications are seen. No skin thickening or abnormal axillary lymph nodes are seen. There has been no significant change from prior exams. IMPRESSION: BI-RADS Category 1, Negative mammogram Yearly screening mammography is recommended. Breast Density - Category B, scattered fibroglandular densities. A negative radiographic report should not delay biopsy if a dominant or clinically suspicious mass is present. Up to ten percent of cancers are not identified on mammography. A negative report may reinforce clinical impression. Adenosis and dense breasts may obscure an underlying neoplasm. False positive reports average 6 to 10%. Patient will receive a letter notifying them of these results.
== END 2021-04-30 00:54 ==
PROVIDERS: PCP Physician Assistant; Visit Provider Physician Assistant
DX: Z12.31 Encounter for screening mammogram for malignant neoplasm of breast (principal)
CPT/HCPCS: 77063; 77067

== ENCOUNTER 2021-05-03 00:27 | Outpatient (CLI) | payer MEDICARE, MEDICAID, SELFPAY ==
--- NOTE | 2021-05-03 07:00 | DI.MRI_ITS ---
Exam(s) MR BRAIN WO EXAM: MR BRAIN WO CLINICAL HISTORY: chronic daily headache,R51.9 TECHNIQUE: Multiplanar multisequence MRI of the brain was performed. COMPARISON: No exams were available for comparison FINDINGS: There is mild generalized cerebral atrophy. There are multiple areas of abnormal signal in periventricular white matter sparing the corpus callos um consistent with microvascular ischemic changes. There is per probable tiny old lacunar infarct in the medial temporal lobe on the right.. The orbital and temporal bone structures appear intact as does the pituitary. Diffusion weighted imaging shows no evidence of acute or subacute infarction. Susceptibility weighted imaging shows no evidence of intracranial hemorrhage. There is normal flow void in the [place] vasculature. IMPRESSION: No evidence of acute intracranial process. DATA REPOSITORY:
== END 2021-05-03 00:47 ==
PROVIDERS: PCP Physician Assistant; Visit Provider Otolaryngology
DX: R51.9 Headache, unspecified (principal); G31.89 Other specified degenerative diseases of nervous system
CPT/HCPCS: 70551

== ENCOUNTER → 2022-01-17 13:12 | Outpatient (CLI) | payer MEDICARE, MEDICAID, SELFPAY ==
--- NOTE | 2022-01-17 13:10 | DI.RAD_ITS ---
Exam(s) XR CERVICAL SPINE COMP 4-5V EXAM: XR CERVICAL SPINE COMP 4-5V CLINICAL HISTORY: CERVICALGIA, M54.2, S/P IMPACT INJURY SEVERAL WEEKS AGO. TECHNIQUE: 2D digital imaging was performed. COMPARISON: No exams were available for comparison FINDINGS: There is apparent fusion between the facets of C2 and C3. There is severe facet degenerative changes at C3-4 through C6-7. There is moderate narrowing of the C4-5 disc. There is mild retrolisthesis a t this level secondary to the facet degenerative changes. There is severe narrowing of the C5-6 and C7 disc spaces. Neural foraminal narrowing is noted from C3-4 through C6-7 on the left and at C4-5 a nd C5-6 on the right. The airway appears intact. Visualized soft tissues are unremarkable. IMPRESSION: Advanced degenerative disc changes and facet degenerative changes. DATA REPOSITORY: RADIATION DOSE DELIVERED:
--- OUTSIDE RECORDS SUMMARY | 2022-01-17 13:15 | XMS_ITS | Clinical Summary ---
:1945 Author Organization [facility] Address [address] [place] [address] Care Team Providers Name Role Phone Liane Vera WILSON Primary Care Provider [phone] Allergies Active Allergy Reactions Severity Noted Date Comments Amlodipine Metronidazole Violent reacti on Hydrochlorothiazide Psyllium Husk Anaphylaxis High Penicillins 08/30/2012 Phenylalanine Anaphylaxis High 08/30/2012 Phenylephrine High 08/18/2013 Phenylephrine hydrochloride ophthalmic solu tion 2.5% Sulfa (Sulfonamide Low 08/30/2012 Antibiotics) Medications Medication Sig Dispensed Refills Start Date End Date Status carvedilol (COREG) 6.25 mg Take 6.25 mg by mouth 2 times daily . 0 Active tablet DIAZepam (VALIUM) 5 mg Take 2.5 mg 0 Active tablet by mouth every 12 hours as needed for Anxiety. hqkmsul-svysagdmcgsln-mcook Take 0.5 Tabs 0 Active ine (EXCEDRIN MIGRAINE) by mouth as 250-250-65 mg per tablet needed for Headaches. MULTIVITAMIN ORAL Take by 0 Ac tive mouth. hydroCHLOROthiazide Take 12.5 mg 0 Active (HYDRODIURIL) 12.5 mg by mouth tablet daily. Active Problems Problem Noted Date Blepharitis 02/22/2009 Overview: IMO Update Auto Replacement Surgical History Surgery Date Site/Laterality Comments HYSTERECTOMY Medical History Medical History Date Comments Hypertension Family History Medical History Relation Comments Diabetes Brother Macular Degeneration Brother Cancer Father mm Glaucoma Neg Hx Relation Status Comments Brother Father Social History Tobacco Use Types Packs/Day Years Used Date Smoking Tobacco: Never Smokeless Tobacco: Never Alcohol Use Standard Drinks/Week Comments No 0 (1 standard drink = 0.6 oz pure alcoho l) Sex Assigned at Date Recorded Not on file Obstetrics History Last Filed Vital Signs Vital Sign Reading Time Taken Comments Blood Pressure 158/104 08/30/2012 1252 EDT Pulse 76 08/30/2012 1252 EDT Temperature - - Respiratory Rate 18 08/30/2012 1252 EDT Oxygen Saturation - - Inhaled Oxygen Concentration - - Weight 63.5 kg (140 lb) 08/30/2012 1252 EDT Height 165.1 cm (5' 5) 08/30/2012 1252 EDT Body Mass Index 23.3 08/30/2012 1252 EDT Plan of Treatment Health Maintenance Due Date Last Done Comments Hepatitis C Screen 1945 COVID-19 Vaccine (#1) 1945 Fall Risk Screening 05/15/2011 Insurance Payer Benefit Plan / Subscriber ID Effective Phone Address T ype Group Dates MEDICARE MEDICARE A/B [id number] 2011-Prese [address] [place] [address] [place] [id number] Effective for [address] [place] [address] Chichi Kaur Personal/Family Self 1945 [phone] [address] (Home) [place] [address] Chichi Kaur Personal/Family Self 1945 [address] (Home) [place] [address] Care Teams Bailer Operators Supervisor Relationship Specialty Start Date End Date Liane Vera, LACQUER MACHINE FEEDER PCP - General 10/15/18 [address] [place] [address]
--- OUTSIDE RECORDS SUMMARY | 2022-01-17 13:15 | XMS_ITS | Encounter Summary ---
:1945 Author Organization [facility] Address [address] [place] [address] Care Team Providers Name Role Phone Liane Vera WILSON Primary Care Provider [phone] Encounter Details Date Type Department Care Team Description 08/11/2019 Lab Requisition [facility] Outr Resulting Lab, Pathology & Laboratory Provider [facility] [address], [place] [id number] Social History Tobacco Use Types Packs/Day Years Used Date Smoking Tobacco: Never Smokeless Tobacco: Never Alcohol Use Standard Drinks/Week Comments No 0 (1 standard drink = 0.6 oz pure alcoho l) Sex Assigned at Date Recorded Not on file documented as of this encounter Plan of Treatment Not on filedocumented as of this encounter Procedures Procedure Name Priority Date/Time Associated Diagnosis Comme nts COVID-19 TEST [facility] Today 08/11/2019 13:32 LAB PCR EDT COVID-19 TESTING Routine 08/11/2019 13:32 Results for this EDT procedure are i n the results section. documented in this encounter Results [facility]19 [facility] (08/11/2019 13:32 EDT) Specimen Anatomical Location Collection Method Collection Time Received Time (Source) / Laterality / Volume Swab ENTIRE NASOPHARYNX 08/11/2019 13:32 08/10 / Unknown EDT 20:53 EDT Provider Outr Resulting Lab MICROBIOLOGY - GENERAL ORD ERABLES Performing Organization Address City/State/ZIP Code Phon e Number [facility] [address] [place] [address] SERVICES COVID-19 TESTING (08/11/2019 13:32 EDT) Analysis Performed At Patho logist Time Signature COVID-19 Negative Negative 08/12/2019 [facility] rt-PCR Result 18:08 EDT CENTER LABORATORY SERVICES Comment: Negative results do not preclude 2019-nC oV infection and should not be used as the sole basis for treatment or other patient management decisions. Negative results must be combined with clinical observa tions, patient history, and epidemiologi hang information. This test was developed and its performa nce characteristics determined by [facility]. It has not been cleared or approved by the US Food and Drug Administration. FDA does not require this test to go through premarket FDA review. This test is used for clinical purposes. It should not be regarded as investigational or for research. This laboratory is certified under the Clinical Laboratory Improvement Amendm ents (CLIA) as qualified to perform high complexity clinical laboratory testing. This test is based on the CDC COVID-19 E mergency Use Authorization (EUA) assay, with minor modification as defined by the FDA Performed on the Applied AmpliSense 7500 Fast. Performing Lab AB [address] [facility] Lab 08/12/2019 18:08 EDT [facility] SERVICES Specimen Anatomical Collection Method Collection Time Receive d Time (Source) Location / / Volume Laterality Swab 08/11/2019 13:32 08/11/2019 EDT 20:53 EDT Provider Outr Resulting Lab MICROBIOLOGY - GENERAL ORD ERABLES Performing Organization Address City/State/ZIP Code Phon e Number [facility] [address] [place] [address] SERVICES documented in this encounter Visit Diagnoses Not on filedocumented in this encounter Care Teams Cdl Team Truck Driver Relationship Specialty Start Date End Date Liane Vera APRN PCP - General 10/15/18 [address] [place] [phone] documented as of this encounter
--- OUTSIDE RECORDS SUMMARY | 2022-01-17 13:15 | XMS_ITS | Encounter Summary ---
:1945 Author Organization [facility] Address [address] [place] [address] Care Team Providers Name Role Phone Liane Vera WILSON Primary Care Provider [phone] Encounter Details Date Type Department Care Team Description 09/24/2020 Lab Requisition [facility] Darrin Manzanares for other Pathology & MD Annalise general examination Laboratory Medicine [address], [place] [address] [facility] [address] [place] [address] Social History Tobacco Use Types Packs/Day Years Used Date Smoking Tobacco: Never Smokeless Tobacco: Never Alcohol Use Standard Drinks/Week Comments No 0 (1 standard drink = 0.6 oz pure alcoho l) Sex Assigned at Date Recorded Not on file documented as of this encounter Plan of Treatment Not on filedocumented as of this encounter Procedures Procedure Name Priority Date/Time Associated Diagnosis Comme nts SURGICAL PATHOLOGY Today 09/24/2020 12:23 Encounter for othe r Results for this EDT general examination procedur e are in the results section. documented in this encounter Results SURGICAL PATHOLOGY (09/24/2020 12:23 EDT) Component Value Ref Test Analysis Performed At [facility] Range Method Time Signature Note to The following 09/26/2020 [facility] MEDICAL Patient pathology results 10:33 EDT CENTER have been LABORATORY interpreted by SERVICES your pathologist and may be available to you before your health provider has had the opportunity to review them. Please allow time for your provider to receive these results and explore management options, if applicable. Final A. STOMACH, ANTRUM, BIOPSY: 09/26/2020 [facility] MEDICAL Diagnosis - Antral mucosa with reactive (chemical) gastropathy. 10:33 [facility] - Negative for Helicobacter pylori on H&E stained sections. LABORATORY SERVICES B. GASTROESOPHAGEAL JUNCTION, BIOPSY: - Squamocolumnar junctional mucosa with focal intestinal metaplasia and mild chronic inflammation. - Negative for dysplasia and malignancy. - See comment. Diagnosis The intestinal 09/26/2020 [facility] MEDICAL Comment metaplasia may 10: [facility] represent LABORATORY [facility] esophagus if the biopsy is obtained >1 cm above the GE junction. Clinical correlation is advised. Attestation There was 09/26/2020 [facility] MEDICAL Elect ronically significant 10: [facility] signed b y Ervin resident/fellow LABORATORY Kaden Dhaliwal MD involvement in the SERVICES o n 09/26/2020 at diagnostic 1033 evaluation of this case. By the signature below, the attending physician certifies that they have personally conducted a gross and/or microscopic examination of the described specimens and rendered or confirmed the above diagnosis. Clinical Epigastric pain 09/26/2020 [facility] MEDICAL History 10: [facility] LABORATORY SERVICES Gross A. 09/26/2020 [facility] MEDICAL Description Received in formalin markel d with proper patient identification (initials M, J) and antrum Bx is a pale tovar to pink-red tissue (0.4 x 0.2 x 0.2 cm). Submitted intact in A1. : [facility] LABORATORY B. SERVICES Received in formalin markel d with proper patient identification (initials M, J) and GE junction Bx are three pale tovar-pink focally red speckled tissues (0.4 x 0.2 x 0.2 cm to 0.2 x 0.1 by less than 0.1 cm). Entirely submitted in B1. Rosas Leigh 09/24/2020 16:00 Resident/Josesito Jenkins MD 09/26/2020 [facility] Elizabeth OBANDO w: 10: [facility] LABORATORY SERVICES Performing Lab [facility] LAB 09/26/2020 [facility] Elizabeth OBANDO 10: [facility] LABORATORY SERVICES Scanned Images 09/26/2020 [facility] MEDICAL 10: [facility] LABORATORY SERVICES Specimen Anatomical Collection Method Collection Time Receive d Time (Source) Location / / Volume Laterality Tissue ENTIRE ESOPHAGUS / 09/24/2020 12:23 09/24 Unknown EDT 15:33 EDT Tissue specimen ENTIRE ESOPHAGUS / 09/24/2020 12:23 (specimen) Unknown EDT 15:33 EDT Annalise Manzanares MD PATHOLOGY ORDERABLES Performing Organization Address City/State/ZIP Code Phon e Number [facility] [address] [place] [address] SERVICES documented in this encounter Visit Diagnoses Diagnosis Encounter for other general examination documented in this encounter Care Teams Energy Operations Vice President Relationship Specialty Start Date End Date Liane Vera APRN PCP - General 10/15/[address] [place] [phone] documented as of this encounter
--- OUTSIDE RECORDS SUMMARY | 2022-01-17 13:15 | XMS_ITS | Encounter Summary ---
:1945 Author Organization [facility] Address [address] [place] [address] Care Team Providers Name Role Phone Liane Vera WILSON Primary Care Provider Encounter Details Date Type Department Care Team Description 02/04/2020 Lab Requisition [facility] Outr Resulting Lab, Pathology & Laboratory Provider [facility] [address] [place], [place] [id number] Social History Tobacco Use Types Packs/Day Years [...] Date/Time Associated Diagnosis Comme nts COVID-19 TEST [facility] Today 02/03/2020 14:50 LAB PCR EST COVID-19 TESTING Routine 02/03/2020 14:50 Results for this EST procedure are i n the results section. documented in this encounter Results [facility]19 TEST [facility] (02/03/2020 14:50 EST) Specimen Anatomical Location Collection Method Collection Time Received Time (Source) / Laterality / Volume Swab ENTIRE NASOPHARYNX 02/03/2020 14:50 02/03 / Unknown EST 21:43 EST Provider Outr Resulting Lab MICROBIOLOGY - GENERAL ORD ERABLES Performing Organization Address City/State/ZIP Code Phon e Number [facility] [address] [place] [address] SERVICES COVID-19 TESTING (02/03/2020 14:50 EST) Analysis Performed At Patho logist Time Signature COVID-19 Negative Negative 02/06/2020 [facility] rt-PCR Result 15:57 EST CENTER LABORATORY SERVICES Comment: Negative results do not preclude 2019-nC oV infection and should not be used as the sole basis for treatment or other patient management decisions. Negative results must be combined with clinical observa tions, patient history, and epidemiologi hang information. This test was developed and its performa nce characteristics determined by [facility]. It has not been cleared or approved [...] defined by the FDA Performed on the RapidEngineso 7 Flex. Performing Lab Quantstudio 7 [facility] 02/06/2020 15:5 7 EST [facility] Lab LABORATORY SERVICES Specimen Anatomical Collection Method Collection Time Receive d Time (Source) Location / / Volume Laterality Swab 02/03/2020 14:50 02/04/2020 EST 21:43 EST Provider Outr Resulting Lab MICROBIOLOGY - GENERAL ORD ERABLES Performing Organization Address City/State/ZIP Code Phon e Number [facility] [address] [place] [address] SERVICES documented in this encounter Visit Diagnoses Not on filedocumented in this encounter Care Teams Sterile Processing Tech Relationship Specialty Start Date End Date Liane Vera APRN PCP - General 10/15/18 [address] [place] [phone] documented as of this encounter
--- OUTSIDE RECORDS SUMMARY | 2022-01-17 13:15 | XMS_ITS | Encounter Summary ---
:1945 Author Organization [facility] Address [address] [place] [address] Care Team Providers Name Role Phone VeraLiane cummings Elizabeth RACHEL Primary Care Provider [phone] Encounter Details Date Type Department Care Team Description 06/22/2020 Lab Requisition [facility] Outr Resulting Lab, Pathology & Laboratory Provider [facility] [address], [place] [id number] Social History Tobacco Use Types Packs/Day Years Used Date Smoking Tobacco: Never Smokeless Tobacco: Never Alcohol Use Standard Drinks/Week Comments No 0 (1 standard drink = 0.6 oz pure alcoho l) Sex Assigned at Date Recorded Not on file documented as of this encounter Plan of Treatment Not on filedocumented as of this encounter Procedures Procedure Name Priority Date/Time Associated Diagnosis Comme nts FECAL BACTERIAL Routine 06/22/2020 5:00 EDT Resul ts for this PATHOGENS BY PCR procedure a re in the results section. documented in this encounter Results FECAL BACTERIAL PATHOGENS BY PCR (06/22/2020 5:00 EDT) [facility] Method Time Signature Salmonella PCR Negative Negative 06/23/2020 [facility] MEDICAL 10:57 EDT CENTER LABORATORY SERVICES Shigella/Enteroin Negative Negative 06/23/2020 [facility] vasive E. coli 10:57 EDT CENTER LABORATORY SERVICES HN LAB Negative Negative 06/23/2020 [facility] CAMPYLOBACTER PCR 10:57 [facility] CENTER LABORATORY SERVICES Shiga Toxin PCR Negative Negative 06/23/2020 [facility] MEDICAL 10:57 T CENTER LABORATORY SERVICES Specimen Anatomical Collection Method Collection Time Receive d Time (Source) Location / / Volume Laterality Feces SPECIMEN FROM 06/22/2020 5:00 06/22/2020 [facility] / Unknown EDT 20:33 EDT Provider Outr Resulting Lab MICROBIOLOGY - GENERAL ORD ERABLES Performing Organization Address City/State/ZIP Code Phon e Number [facility] [address] [place] [address] SERVICES documented in this encounter Visit Diagnoses Not on filedocumented in this encounter Care Teams Sail Finisher Hand Relationship Specialty Start Date End Date Liane Vera, ACRYLIC FABRICATOR PCP - General 10/15/[address] [place] [phone] documented as of this encounter
--- OUTSIDE RECORDS SUMMARY | 2022-01-17 13:15 | XMS_ITS | Encounter Summary ---
:1945 Author Organization [facility] Address [address] [place] [address] Care Team Providers Name Role Phone Liane Vera APRN Primary Care Provider [phone] Encounter Details Date Type Department Care Team Description 06/22/2020 Lab Requisition [facility] Outr Resulting Lab, Pathology & Laboratory Provider [facility] [address] [place], [place] [phone] Social History Tobacco Use Types Packs/Day Years Used Date Smoking Tobacco: Never Smokeless Tobacco: Never Alcohol Use Standard Drinks/Week Comments No 0 (1 standard drink = 0.6 oz pure alcoho l) Sex Assigned at Date Recorded Not on file documented as of this encounter Plan of Treatment Not on filedocumented as of this encounter Procedures Procedure Name Priority Date/Time Associated Comments Diagnosis GIARDIA AND Routine 06/22/2020 5:00 Results for this CRYPTOSPORIDIUM ANTIGENS EDT pro cedure are in the results section. OVA/PARASITE EXAM Routine 06/22/2020 5:00 Results for this EDT procedure are i n the results section. documented in this encounter Results GIARDIA AND CRYPTOSPORIDIUM ANTIGENS (06/22/2020 5:00 EDT) Component Value Ref Range Test Analysis Performed Pathologis t Method Time At Signature Giardia and Cryptosporidium Cryptosporidium [facility] DICAL Cryptosporidium Antigen Neg and Antigen Neg and 1 9:38 CE NTER Giardia Antigen Giardia Antigen EDT LABORATO RY Neg Neg SERVICES Specimen Anatomical Collection Method Collection Time Receive d Time (Source) Location / / Volume Laterality Feces SPECIMEN FROM 06/22/2020 5:00 06/22/2020 [facility] / Unknown EDT 20:33 EDT Provider Outr Resulting Lab MICROBIOLOGY - GENERAL ORD ERABLES Performing Organization Address City/State/ZIP Code Phon e Number [facility] [address] [place] [address] SERVICES OVA/PARASITE EXAM (06/22/2020 5:00 EDT) [facility] Method Time Signature Parasite No ova and 06/25/2020 [facility] MED[facility] parasites 12:45 EDT CENTER seen. LABORATORY SERVICES Specimen Anatomical Collection Method Collection Time Receive d Time (Source) Location / / Volume Laterality Feces SPECIMEN FROM 06/22/2020 5:00 06/22/2020 [facility] / Unknown EDT 20:33 EDT Narrative [facility] SERVICES - 06/25/2020 12:45 EDT (If Cryptosporidium, Cyclospora, or Micr osporidium are suspected, specific tests must be requested.) Single negative specimen does not rule out the possibility of a parasitic infection. Provider Outr Resulting Lab MICROBIOLOGY - GENERAL ORD ERABLES Performing Organization Address City/[facility]/ZIP Code Phon e Number [facility] [address] [place] [address] SERVICES documented in this encounter Visit Diagnoses Not on filedocumented in this encounter Care Teams Automotive Finance Manager Relationship Specialty Start Date End Date Liane Vera APRN PCP - General 10/15/[address] [place] [phone] documented as of this encounter
--- OUTSIDE RECORDS SUMMARY | 2022-01-17 13:15 | XMS_ITS | Encounter Summary ---
:1945 Author Organization [facility] Address [address] [place] [address] Care Team Providers Name Role Phone Liane Vera WILSON Primary Care Provider [phone] Encounter Details Date Type Department Care Team Description 11/24/2019 Lab Requisition [facility] Cesar Klein for other Pathology & T, RPA general examination Laboratory Medicine [address] [facility] [address] [place] [address] [place] [address] Social History Tobacco Use Types Packs/Day Years [...] Associated Diagnosis Comme nts SURGICAL PATHOLOGY Today 11/23/2019 13:05 Encounter for othe r Results for this EDT general examination procedur e are in the results section. documented in this encounter Results SURGICAL PATHOLOGY (11/23/2019 13:05 EDT) Component Value Ref Test Analysis Performed At [facility] Range Method Time Signature Final A. SKIN OF FLANK, LEFT, SHAVE BIOPSY: [facility] MEDICAL Diagnosis - Seborrheic keratosis. 11:30 EDT CENTER LABORATORY B. SKIN OF BREAST, RIGHT LATERAL, SHAVE BIOPSY: SERVICES - Seborrheic keratosis. Attestation By the signature 11/30/2019 [facility] MEDICA L Electronically below, the 11:30 EDT CENTER signed by attending LABORATORY Damaris Lara physician SERVICES MD martina Camarillo n certifies that 11/29 at they have 1) 1130 personally conducted a gross and/or microscopic examination of the described specimen(s), and/or personally interpreted the results of laboratory testing of the described specimen(s), and 2) personally rendered or confirmed the above diagnosis. Clinical A. Approx 8 mm 11/30/2019 [facility] MEDICAL History slightly 11:30 EDT CENTER pedunculated LABORATORY raised pigmented SERVICES lesion left flank; Likely acrochordon; B. Raised approx 6 mm slightly verrucous raised lesion on lateral R breast; Likely seborrheic keratosis Gross A. 11/30/2019 [facility] MEDICAL Description Received in formalin markel d with proper patient identification (initials M, J) and 1. L flank is a shave biopsy of brown to tovar-white bosselated friable skin (1.0 x 1.0 x 0.3 cm). The margin is ink 11:30 [facility] ed blue. The tissue is quadrisected and entirely submitted in A1 and A2. LABORATORY SERVICES B. Received in formalin markel d with proper patient identification (initials M, J) and R breast is a shave biopsy of tovar-white bosselated skin (0.6 x 0.5 x 0.4 cm). The margin is inked black. The tissue is bisected and entirely submitted in B1. JOSEFA BUCKLEY([facility]) 11/25/2019 7:47 Performing Lab [facility] 11/30/2019 [facility] MEDIC AL LAB 11:30 [facility] LABORATORY SERVICES Scanned Images 11/30/2019 [facility] MEDICAL 11:30 [facility] LABORATORY SERVICES Specimen Anatomical Collection Method Collection Time Receive d Time (Source) Location / / Volume Laterality Tissue TISSUE SPECIMEN 11/23/2019 13:05 11/24/19 20 FROM SKIN / EDT 23:38 EDT Unknown Tissue specimen TISSUE SPECIMEN 11/23/2019 13:05 11/23 (specimen) FROM SKIN / EDT 23:38 EDT Unknown Cesar Klein [facility] PATHOLOGY ORDERABLES Performing Organization Address City/State/ZIP Code Phon e Number [facility] [address] [place] [address] SERVICES documented in this encounter Visit Diagnoses Diagnosis Encounter for other general examination documented in this encounter Care Teams Cement Finisher Apprentice Relationship Specialty Start Date End Date Liane Vera APRN PCP - General 10/15/18 [address] [place] [phone] documented as of this encounter
--- OUTSIDE RECORDS SUMMARY | 2022-01-17 13:15 | XMS_ITS | Encounter Summary ---
:1945 Author Organization [facility] Address [address] [place] [address] Care Team Providers Name Role Phone Liane Vera WILSON Primary Care Provider [phone] Encounter Details Date Type Department Care Team Description 03/31/[address] [facility] - Allison Olmstead, [facility] [place] Radiology Resul ts PA-C [address] [facility] [address] [place] [address] [place], [place] [phone] (Wo rk) Social History Tobacco Use Types Packs/Day Years Used Date Smoking Tobacco: Never Smokeless Tobacco: Never Alcohol Use Standard Drinks/Week Comments No 0 (1 standard drink = 0.6 oz pure alcoho l) Sex Assigned at Date Recorded Not on file documented as of this encounter Plan of Treatment Not on filedocumented as of this encounter Procedures Procedure Name Priority Date/Time Associated Diagnosis Comme nts CT ABDOMEN PELVIS 03/31/2019 16:11 Result s for this WO CONTRAST EST procedure are i n the results section. documented in this encounter Results CT ABDOMEN PELVIS WO CONTRAST (03/31/2019 16:11 EST) Anatomical Region Laterality Modality Computed Tomography Specimen (Source) Anatomical Collection Method Collection Time Re ceived Time Location / / Volume Laterality 03/31/2019 16:08 EST Narrative 03/31/2019 16:11 EST ? EXAM: CAT SCAN/ABDOMEN PELVIS WITHOUT CON EX. D/ (1550) ? CLINICAL INFORMATION: ? ABDOMEN PELVIS WITHOUT CONTRAS ?? 03/31/2019 3:50 PM ? Signs and Symptoms/Comments: ? Stomachache ? Technique: CT of the abdomen and pelvis was performed without ? intravenous contrast; coronal and sagittal multiplanar ? reconstructions were generated. ? Comparison: None. ? FINDINGS: ? Lower chest: Lung bases are clear . ? Hepatobiliary: The liver and gall bladder appear normal. There is mild ? dilatation of the common bile renetta t which measures approximately 8 mm. ? Spleen, pancreas, adrenal glands: No abnormalities. ? Kidneys, ureters, bladder: The ki dneys are normal in position and ? morphology. There is no hydroneph rosis or nephrolithiasis. The ? ureters are normal in caliber. Re nal cysts are noted. ? Reproductive: The uterus is absen t. No suspicious adnexal mass is ? detected. ? Bowel: The stomach is decompresse d and suboptimally assessed by ? noncontrast CT. There is mild thi ckening of the distal esophagus and ? there is a suspected tiny hiatal hernia. The small bowel appears ? normal. The appendix is visualize d and is normal. There is colonic ? diverticulosis without evidence o f acute diverticulitis. ? Peritoneal cavity / Subperitoneal space: No free fluid. No free ? intraperitoneal air. ? Lymphovascular: Aorta normal in c aliber. No lymphadenopathy detected. ? Abdominal wall: Intact. ? Musculoskeletal: No acute osseous abnormality. ? IMPRESSION: ? 1. Extensive colonic diverticulos is without evidence of acute ? diverticulitis at this time. ? 2. Mild dilatation of the common bile duct. Please correlate with ? laboratory values and if abnormal recommend further assessment with ? ultrasound and/or MRCP. ? PAGE 1 ? Tory d Report ? (CONTINUED) ? 3. Suspected small hiatal hernia and thickening of the distal ? esophagus. ? REPORT SIGNED IN OTHER VENDOR SYSTEM 03/31/2019 ?Reported B y: Brooks Gil MD ? CC: ? Transcribed Date/Time: 03/31/2019 (1611) ? Moisture Meter Operator: ? Printed Date/Time: 03/31/2019 (16 12) ? PAGE 2 ? Tory d Report ? Procedure Note Brooks Gil MD - 03/31/2019Fo rmatting of this note might be different from the original. EXAM: CAT SCAN/ABDOMEN PELVIS WITHOUT C ON EX. D/ (1550) CLINICAL INFORMATION: ABDOMEN PELVIS WITHOUT CONTRAS 0 3:50 PM Signs and Symptoms/Comments: Stomachache Technique: CT of the abdomen and pelvis was performed without intravenous contrast; coronal and sagit gil multiplanar reconstructions were generated. Comparison: None. FINDINGS: Lower chest: Lung bases are clear. Hepatobiliary: The liver and gallbladde r appear normal. There is mild dilatation of the common bile duct whic h measures approximately 8 mm. Spleen, pancreas, adrenal glands: No ab normalities. Kidneys, ureters, bladder: The kidneys are normal in position and morphology. There is no hydronephrosis or nephrolithiasis. The ureters are normal in caliber. Renal cy sts are noted. Reproductive: The uterus is absent. No suspicious adnexal mass is detected. Bowel: The stomach is decompressed and suboptimally assessed by noncontrast CT. There is mild thickenin g of the distal esophagus and there is a suspected tiny hiatal hernia . The small bowel appears normal. The appendix is visualized and is normal. There is colonic diverticulosis without evidence of acut e diverticulitis. Peritoneal cavity / Subperitoneal space : No free fluid. No free intraperitoneal air. Lymphovascular: Aorta normal in caliber . No lymphadenopathy detected. Abdominal wall: Intact. Musculoskeletal: No acute osseous abnor mality. IMPRESSION: 1. Extensive colonic diverticulosis wit hout evidence of acute diverticulitis at this time. 2. Mild dilatation of the common bile d uct. Please correlate with laboratory values and if abnormal recom mend further assessment with ultrasound and/or MRCP. PAGE 1 Signed Report (CONTINUED) 3. Suspected small hiatal hernia and th ickening of the distal esophagus. REPORT SIGNED IN OTHER VENDOR SYSTEM 03/31/2019 Reported By: Brooks Gil MD CC: Transcribed Date/Time: 03/31/2019 (1611 ) Moisture Meter Operator: Printed Date/Time: 03/31/2019 (1612) PAGE 2 Signed Report Duran Olmstead PA-C IMG CT ORDERABLES documented in this encounter Visit Diagnoses Not on filedocumented in this encounter Care Teams Sports Medicine Trainer Relationship Specialty Start Date End Date Liane Vera APRN PCP - General 10/15/[address] [place] [address] documented as of this encounter
--- OUTSIDE RECORDS SUMMARY | 2022-01-17 13:15 | XMS_ITS | Encounter Summary ---
:1945 Author Organization [facility] [place] [address] Care Team Providers Name Role Phone Delvin Mcmillan MD Primary Care Provider Encounter Details Date Type Department Care Team Description 01/02/2016 Hospital Encounter Laboratory [facility] [place] [address] Social History Tobacco Use Types Packs/Day Years Used Date Smoking Tobacco: Never Sex Assigned at Date Recorded Not on file documented as of this encounter Medications at Time of Discharge Medication Sig Dispensed Refills Start Date End Date carvedilol (COREG) 6.25 mg Take 6.25 mg by mouth 0 tablet daily. documented as of this encounter Plan of Treatment Not on filedocumented as of this encounter Procedures Procedure Name Priority Date/Time Associated Diagnosis Comme [facility] SURGICAL PATHOLOGY Routine 01/02/2016 12:00 PM Re sults for this REPORT EST procedure are i n the results section. documented in this encounter Results Surgical Pathology Report (01/02/2016 12:00 PM EST) Component Value Ref Test Analysis [facility] Method Time Signature Surgical [id number] ?Location: [facility] Report The signing pathologist has (i) examined the relevant preparation(s) for the [facility]ORIAL specimen(s) and (ii) rendered or confirmed the diagnosis(es) . HOSPITAL LABORATORY . ?Surgic al Pathology DIAGNOSIS Skin, left inner thigh, ?? punch biopsy: - SPONGIOTIC DERMATITIS WITH EOSINOPHILS (SEE DISCUSSION) Electronically signed by: ??Reese Alan MD Verified: ??01/08/2016 ?Dermatopathologist DISCUSSION The predominant finding is spongiosis, which suggests an e czematous process such as atopic, allergic/co ntact, or nummular dermatitis versus an id or drug- type hypersensitivity reacti on. Given the accompanying perivascular lymphocytic inflammation, the differential could be expanded to include an arthropod bite reaction. Exocytosis is in proportion to spongiosis in this sample. ADDITIONAL STUDIES PASd staining fails to revea l fungal organisms. ?Multiple step-leveled sections are reviewed. CLINICAL INFORMATION Specimen Submitted: A - L inner thigh Clinical History: 1 cm edematous nodule Clinical Diagnosis: Dermatitis, eczematous vs. other Referring Identifier: ?(not provided) SPECIMEN PROCESSING A - Labeled/Fixative: L inner thigh, formalin. Quantity/Size: Single, 0.4 x 0.4 x 0.3 cm. Tissue Description: Punch of white scaly skin. Sections/Processing: Inked and bisected. (T1) ??verdugo Specimen (Source) Anatomical Collection Method Collection Time Re ceived Time Location / / Volume Laterality 01/02/2016 12:00 PM EST Nicolle Hagan MD PATHOLOGY/CYTOLOGY ORDERABLE S Performing Organization Address City/State/[place] [address] documented in this encounter Visit Diagnoses Not on filedocumented in this encounter Care Teams Residential Mortgage Underwriter Relationship Specialty Start Date End Date Delvin Mcmillan MD PCP - General 05/01/11 documented as of this encounter
--- OUTSIDE RECORDS SUMMARY | 2022-01-17 13:15 | XMS_ITS | Encounter Summary ---
:1945 Author Organization [facility] Address [facility] [place] [address] Care Team Providers Name Role Phone Delvin Mcmillan MD Primary Care Provider Encounter Details Date Type Department Care Team Description 06/02/2011 Orders Only Infectious Disease at [facility] infection (Primary [facility] Dx) [address] [place] [address] [place] [address] [phone] (Wo rk) Social History Tobacco Use Types Packs/Day Years Used Date Smoking Tobacco: Never Sex Assigned at Date Recorded Not on file documented as of this encounter Plan of Treatment Not on filedocumented as of this encounter Visit Diagnoses 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
--- OUTSIDE RECORDS SUMMARY | 2022-01-17 13:15 | XMS_ITS | Encounter Summary ---
:1945 Author Organization [facility] [place] [address] Care Team Providers Name Role Phone Delvin Mcmillan MD Primary Care Provider Reason for Visit Reason Comments Illness Encounter Details Date Type Department Care Team Description 05/27/2011 Office Visit Infectious Disease at [facility] of giardia infection (Primary Dx); [facility] [place] Percy Sidhuameba fragilis infection [facility] [address] [place] [address] [place] [address] [phone] (Wo rk) Social History Tobacco Use Types Packs/Day Years Used Date Smoking Tobacco: Never Sex Assigned at Date Recorded Not on file documented as of this encounter Last Filed Vital Signs Vital Sign Reading Time Taken Comments Blood Pressure 151/104 05/27/2011 1:42 PM EDT Pulse 80 05/27/2011 1:42 PM EDT Temperature 36.6 ??C (97.9 ??F) 05/27/2011 1:42 PM EDT Respiratory Rate 16 05/27/2011 1:42 PM EDT Oxygen Saturation 97% 05/27/2011 1:42 PM EDT Inhaled Oxygen Concentration - - Weight 58.1 kg (128 lb) 05/27/2011 1:42 PM EDT Height 165.1 cm (5' 5) 05/27/2011 1:42 PM EDT Body Mass Index 21.3 05/27/2011 1:42 PM EDT documented in this encounter Progress Notes Sharlene Albarado MD - 05/27/2011 2:49 PM EDT ID CONSULT CC D fragilis HPI This is a 66W with apparently normal immune system who on Oct 21 2011 first had illness with diarrhea. She sought medical attention on Nov 01 at which time she was diagnosed with stomach flu. She didn't really believe this, and experienced six weeks of violent vomiting, diarrhea, fever and 15 pounds weight loss. She thought it seemed like giardia based on her research and in fact the antigen test she requested was positive for giardia. She was given normal dose tinidazole but took small doses because of her chemical sensitivities. By second day she felt much better and felt cured of her giardia. Dec 27 she took another antigen test of stool to make sure she was cured, and it was positive again for giardia (which she believes represented nonviable organism antigens). Dec 30 she requested another stool specimen butt his time for full O+P where for the first time was found D fragilis. Her symptoms at this time were mild lingering nausea and headaches. She went to a scientific publications editor and that therapydidn't help. She began eating a lot of meat which she believes did help. She went to an herbalist which also didn't cure her mild symptoms so she took one tinidazole (left over from giardia treatment).Went to Dr Retana who gave her flagyl on Jan 25 but still tested positive for D frag. Last stool test was March through [facility] and was still positive. Since then, her symptoms have been minimal - very slight abd pain, slight nausea, rare COATS. She is now maintaining her weight and has loose regular stools - has not been formed in a long time. ROS Has had a chronic cough that defies diagnosis. No CP, no rash, no fevers, no joint pains. Mild COATS that she attributes to her antihypertensive. Has some tachycardias with chemical exposures. Had hallucinations with scopolamine. 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 No previous exposure to chemicals because of extreme sensitivity. Alcohol averse. Never smoked. Tried many recreational drugs but never injected. Not sexually active. Has 4 cats, healthy - stool was tested. Has well which was tested and it was negative. Suspects source is a garden she visited in September and ate raw vegetables. 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 No tropical travel. PE 150/90 bp - she reports home monitoring dose not show this high and she has white coat hypertension Well appearing. Mildly injected OP. Moderate dentition. No LAD. Lungs are CTA. Cor s1s2 RRR without obvious murmur or click. Abd with only slight tenderness to deep palpation in right lower quadrant. No HSM. No rash or extremity edema. Assessment/Plan We discussed the acquisition, natural history and past controversies about the pathogenic nature of D frag. She certainly may have acquired it through consumption of raw vegetables (of which she is convinced). We also spent quite a bit of time on issues of risk and benefit of treatment, for her who has many concerns for the poisons that these treatments are. By the end of our discussion we agreed to: ?? Retest stool that she has brought ?? If negative test a second ?? If negative test a third and then stop. ?? If any are positive, treat specifically. If D nathan again (likely) would use paramomycin at 25mg/kg daily dose in 3 divided doses for 7-10 days. She says she would not take that high a dose and I warned her that lower doses might not be effective, but she will follow her inclinations in this regard. ?? She will contact this clinic if she has any troubles documented in this encounter Plan of Treatment Not on filedocumented as of this encounter Procedures Procedure Name Priority Date/Time Associated Comments Diagnosis CRYPTOSPORIDIUM OOCYST Routine 05/27/2011 8:59 Re sults for this ANTIGEN ([facility] [place]) PM EDT proce dure are in the results section. GIARDIA ANTIGEN Routine 05/27/2011 8:59 Results f or this ([facility] [place]) PM EDT procedure are in the results section. FULL OVA AND PARASITES Routine 05/27/2011 9:00 History of giar edwin Results for this EXAM AM EDT infection procedure are i n the results section. documented in this encounter Results CRYPTOSPORIDIUM OOCYST ANTIGEN (05/27/2011 8:59 PM EDT) Patholo gist Method Time Signature Cryptosporidium Negative Negative CERNER Screen MILLENNIUM Specimen Anatomical Collection Method Collection Time Receive d Time (Source) Location / / Volume Laterality Stool specimen 05/27/2011 8:59 PM 012 8:59 (specimen) EDT PM EDT Resulting Agency Comment Spec In Lab Sharlene Albarado MD MICROBIOLOGY - GENERAL ORDER EVELYN Performing Organization Address [facility]/ZIP Code Phon e Number [address] CERNER MILLENNIUM GIARDIA ANTIGEN (05/27/2011 8:59 PM EDT) Analysis Performed At Patho logist Time Signature Giardia Screen Negative Negative CERNER MILLENNIUM Comment: Examination for other intestina l parasites requires foreign travel history. Specimen Anatomical Collection Method Collection Time Receive d Time (Source) Location / / Volume Laterality Stool specimen 05/27/2011 8:59 PM 012 8:59 (specimen) EDT PM EDT Resulting Agency Comment Spec In Lab Sharlene Albarado MD MICROBIOLOGY - GENERAL ORDER EVELYN Performing Organization Address City/[facility]/ZIP Code Phon e Number [address] CERNER MILLENNIUM Full Ova and Parasites Exam (05/27/2011 9:00 AM EDT) Component Value Ref Test Analysis Performed At [facility] gist Range Method Time Signature Ova & CERNER Parasite ? Patient Name: JACKLYN CHRISTINE ?Ordered By: SHARLENE ALBARADO Stool ? MR#: [id number] ?LOC: ??5C ? /Sex: ??1945 (66 years), ? Female ? PROCEDURE: Ova & Parasite Stool ?SOURCE: Stool ? COLLECTED: 05/27/2011 09:00 ?FREE TEXT SOURCE: Specify travel history (where) or if patient ? STARTED: 05/27/2011 15:23 ? is in an immunosuppressed state?->multiple ? positive specimens for dientameba and giardia ? before that. ? FINAL REPORT ? Final Report ? Verified:05/29/2011 11:55 ? 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 Specimen Anatomical Collection Method Collection Time Receive d Time (Source) Location / / Volume Laterality Stool specimen 05/27/2011 9:00 AM 012 8:57 (specimen) EDT PM EDT Comment: SPECIFY TRAVEL HISTORY (WHERE) OR IF PATIENT IS IN AN IMMUNOSUPPRESSED STATE?->MULTIPLE POSITIVE SPECIMENS FOR DIENTAMEBA AND GIARDIA BEFORE THAT. 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
--- OUTSIDE RECORDS SUMMARY | 2022-01-17 13:15 | XMS_ITS | Encounter Summary ---
:1945 Author Organization [facility] Address [address] [place] [address] Care Team Providers Name Role Phone Liane Vera WILSON Primary Care Provider Encounter Details Date Type Department Care Team Description 06/24/2019 Lab Requisition [facility] Outr Resulting Lab, Pathology & Laboratory Provider [facility] [address] [place], [place] [id number] Social History Tobacco Use Types Packs/Day Years [...] Diagnosis Comme nts COVID-19 TEST [facility] Today 06/23/2019 16:30 LAB PCR EDT COVID-19 TESTING Routine 06/23/2019 16:30 Results for this EDT procedure are i n the results section. documented in this encounter Results COVID-19 TEST [facility] LAB PCR (06/23/2019 16:30 EDT) Specimen Anatomical Location Collection Method Collection Time Received Time (Source) / Laterality / Volume Swab ENTIRE NASOPHARYNX 06/23/2019 16:30 06/23 / Unknown EDT 15:52 EDT Provider Outr Resulting Lab MICROBIOLOGY - GENERAL ORD ERABLES Performing Organization Address City/State/ZIP Code Phon e Number [facility] [address] [place] [address] SERVICES COVID-19 TESTING (06/23/2019 16:30 EDT) Analysis Performed At Patho logist Time Signature COVID-19 Negative Negative 06/25/2019 [facility] rt-PCR Result 12:00 EDT [facility] Comment: Negative results do not preclude 2019-nC oV infection and should not be used as the sole basis for treatment or other patient management decisions. Negative results must be combined with clinical observa tions, patient history, and epidemiologi hang information. This test has not been FDA cleared or ap proved. This test has been authorized by FDA under an EUA for use by authorized laboratories. This test has been authorized only for detection of nucleic acid fro m 2019-nCoV, not for any other viruses o r pathogens. This test is only authorized for the duration of the declaration that circumstances exist justifying the authorization of emergency use of in vitro d iagnostic tests for detection and/or edwin gnosis of 2019-nCoV under section 564(b)(1) of Act, 21 U.S.C ?? 360bbb-3(b) (1), unless the authorization is terminated or revoked sooner. Performed on the [employer]xinme[employer] Fusion instrument Performing Lab [facility] Lab 06/25/2019 12:00 EDT [facility] SERVICES Specimen Anatomical Location Collection Method Collection Time Received Time (Source) / Laterality / Volume Swab ENTIRE NASOPHARYNX 06/23/2019 16:30 06/23 / Unknown EDT 15:52 EDT Provider Outr Resulting Lab MICROBIOLOGY - GENERAL ORD ERABLES Performing Organization Address City/State/ZIP Code Phon e Number [facility] [address] [place] [address] SERVICES documented in this encounter Visit Diagnoses Not on filedocumented in this encounter Care Teams Tagman Relationship Specialty Start Date End Date Liane Vera APRN PCP - General 10/15/18 [address] [place] [address] documented as of this encounter
--- OUTSIDE RECORDS SUMMARY | 2022-01-17 13:16 | XMS_ITS | Encounter Summary ---
:1945 Author Organization [facility] Address [address] [place] [address] Care Team Providers Name Role Phone Delvin Mcmillan MD Primary Care Provider Liane Vera APRN Primary Care Provider [phone] Encounter Details Date Type Department Care Team Description 09/12/2011 Historical Results [facility] - Annamaria Chowdary que Only [facility] - [place] us Jihan PA-C [address] [place], [place] [id number] [place] [address] Road [address] [place] [address] Social History Tobacco Use Types Packs/Day Years Used Date Smoking Tobacco: Never Smokeless Tobacco: Never Sex Assigned at Date Recorded Not on file documented as of this encounter Plan of Treatment Not on filedocumented as of this encounter Procedures Procedure Name Priority Date/Time Associated Diagnosis Comme nts PAP TEST Routine 09/12/2011 Results for thi s procedure are in the resu lts section. documented in this encounter Results PAP TEST (09/12/2011) Specimen (Source) Anatomical Collection Method Collection Time Re ceived Time Location / / Volume Laterality 09/12/2011 09/13/2011 17:0 8 EDT Narrative [facility] - 012 15:30 EDT Name: JACKLYN CHRISTINE ? : [birth year] ?Age/Sex: 73/F ?Unit#: [id number] ? Loc: MHC ? Status: REG POV ?? Reg Date: 09/12/11 ? Pt.Phone Number : ? Specimen: [id number] ?STA TUS: SOUT ?Spec Date:09/12/11 ? Physician Copies: ?Faith Chowdary Tissues: ? Cervical/Endo Pap ?Delvin Mcmillan CPT: 58062 ?? Units: ??1 ? CYTOLOGY DIAGNOSIS SPECIMEN ADEQUACY: ?Satisfactory for evaluation. Transformation zone component present. GENERAL CATEGORIZATION: ?Negative fo r Intraepithelial Lesion or Malignancy DESCRIPTIVE DIAGNOSIS: ? Negative fo r Intraepithelial Lesion or Malignancy. RECOMMENDATIONS/COMMENTS: ?None. ?HPV DNA RESULTS ?? 09/12/111707 HPV DNA RESULT ??NEG ? Negative for HP V types 16, 18, 31, 33, 35, 39, 45, 51, 52, ? 56, 58, 59, 66, 68. ? Method: Cervist a HPV HR (High Risk) DNA test. ORDER QUERIES: LMP: 20+ YRS - WNL ?Pregna nt? N Post ? N ??PREVIOUS ATYPICAL: N BCP/HRT? N Rad Rx? N IUD? N ??PAP PLUS HPV? Y ??REFLEX TO HR-HPV IF ASCUS ?? REFLEX TO HPV 16/18 IF HPV POS/PAP NEG ?? HPV REGARDLESS?RFLX HPV IF LSIL ?? IF ASCUS DO HPV? Y Signed Nithin Ludwig CT(ASCP) 09/17/11 ? By the signature above, the attending ph ysician certifies that he/she has personally conducted a gross and/or microscopic exa mination of the described specimens and rendered or confirmed the above diagnosi s. Test Performed by [facility], [address] [place] [address] Rehabilitation Manager: Thalia Estrada MD PHD Faith Chowdary PA-C PATHOLOGY ORDERABLES Performing Organization Address City/State/ZIP Code Phon e Number [facility] [address] [place] [address] LAB documented in this encounter Visit Diagnoses Not on filedocumented in this encounter Care Teams Hot Sealing Machine Operator Relationship Specialty Start Date End Date Delvin Mcmillan MD PCP - General 09/10/11 10/14/18 [address] [place] [address] Liane Vera APRN PCP - General 10/15/18 [address] [place] [address] documented as of this encounter
--- OUTSIDE RECORDS SUMMARY | 2022-01-17 13:16 | XMS_ITS | Encounter Summary ---
:1945 Author Organization [facility] Address [address] [place] [address] Care Team Providers Name Role Phone Unavailable Primary Care Provider Unavailable Encounter Details Date Type Department Care Team Description 07/20/2006 Hospital Encounter [facility] - Unknown, Provider, Other Guillaume Forte MD [address] [place] [id number] [place], [place] [phone] Social History Tobacco Use Types Packs/Day Years Used Date Smoking Tobacco: Never Assessed Sex Assigned at Date Recorded Not on file documented as of this encounter Discharge Disposition Disposition Code Departure Means Destination Auto Discharge documented in this encounter Plan of Treatment Not on filedocumented as of this encounter Visit Diagnoses Not on filedocumented in this encounter
--- OUTSIDE RECORDS SUMMARY | 2022-01-17 13:16 | XMS_ITS | CCD ---
:1945 Author Care Team Providers Name Role Phone JEN VILLANUEVA Attending Physician Unavailable JEN VILLANUEVA Rounding (Secondary) Physician Unavailab yamilex Vital Signs Unknown or Not Available. Allergies Unknown or Not Available. Procedures Unknown or Not Available. History of Immunizations Unknown or Not Available. Problems Unknown or Not Available. Results Unknown or Not Available. Active Medications Unknown or Not Available. Medications Administered During Visit Unknown or Not Available. Encounters Encounter Diagnosis Diagnosis Code Start Date Essential (primary) hypertension I10 021 Social History Smoking Status Code Start Date End Date Never smoker [id number] Patient Decision Aids Unknown or Not Available. Discharge Instructions You were admitted to [facility] on 02/01/2021 14:32 with a principal diagnosis of Essential (primary) hypertension You were discharged from [facility] on 02/01/2021 00:00 Should you have any questions prior to d ischarge, please contact a member of your healthcare team. If you have left the ho spital and have any questions, please contact your primary care physician. Chief Complaint and Reason For Visit Unknown or Not Available. Function Status Unknown or Not Available. Plan of Care Unknown or Not Available. Referral/Transition of Care Unknown or Not Available.
--- OUTSIDE RECORDS SUMMARY | 2022-01-17 13:16 | XMS_ITS | Encounter Summary ---
:1945 Author Organization [facility] Address [address] [place] [address] Care Team Providers Name Role Phone Delvin Mcmillan MD Primary Care Provider Encounter Details Date Type Department Care Team Description 11/25/2017 Abstract [facility] ENT - Delvin Mcmillan MD [place] [address] [address] [place] [address] [phone] Social History Tobacco Use Types Packs/Day Years Used Date Smoking Tobacco: Never Smokeless Tobacco: Never Alcohol Use Standard Drinks/Week Comments No 0 (1 standard drink = 0.6 oz pure alcoho l) Sex Assigned at Date Recorded Not on file documented as of this encounter Plan of Treatment Not on filedocumented as of this encounter Visit Diagnoses Not on filedocumented in this encounter Historical Medications This list may reflect changes made after this encounter. Medication Sig Dispensed Refills Start Date End Date hydroCHLOROthiazide Take 12.5 mg by 0 (HYDRODIURIL) 12.5 mg tablet mouth daily. added in this encounter Care Teams Glazier Apprentice Relationship Specialty Start Date End Date Delvin Mcmillan MD PCP - General 09/10/11 10/14/18 [address] [place] [address] documented as of this encounter
--- OUTSIDE RECORDS SUMMARY | 2022-01-17 13:16 | XMS_ITS | Encounter Summary ---
:1945 Author Organization [facility] Address [address] [place] [address] Care Team Providers Name Role Phone Delvin Mcmillan MD Primary Care Provider Reason for Visit Reason Onset Date Comments Medication Reaction 08/30/2013 Encounter Details Date Type Department Care Team Description 08/30/2013 Telephone [facility] Maile Mcclelland Medi cation Reaction Ophthalmology - [place] [facility] [address] [place], [place] [id number] [place] [address] [id number] Social History Tobacco Use Types Packs/Day Years Used Date Smoking Tobacco: Never Smokeless Tobacco: Never Alcohol Use Standard Drinks/Week Comments No 0 (1 standard drink = 0.6 oz pure alcoho l) Sex Assigned at Date Recorded Not on file documented as of this encounter Miscellaneous Notes Telephone Encounter - Maile Mcclelland - 08/30/2013 2588 EDT Pt called to discuss concerns & reactions from drops given to her at exam 08/17/13. She feels thedrops that were given to her for dilation caused an adverse reaction, and were taking a long time togo through her system. She stressed that she is very sensitive to medications & chemicals and would prefer not to be dilated with these drops in the future (1% tropicamide & 2.5% phenylephrine). She says she is still having pressure feeling behind eyes & symptoms are gradually getting better. I suggested if she was still feeling uncomfortable to schedule another appointment. I let her know that I would flag her chart Re: strong sensitivity to medications & chemicals for further visits. documented in this encounter Plan of Treatment Not on filedocumented as of this encounter Visit Diagnoses Not on filedocumented in this encounter Care Teams Plan Manager Relationship Specialty Start Date End Date Delvin Mcmillan MD PCP - General 09/10/11 10/14/[address] [place] [phone] documented as of this encounter
--- OUTSIDE RECORDS SUMMARY | 2022-01-17 13:16 | XMS_ITS | Encounter Summary ---
:1945 Author Organization [facility] Address [address] [place] [address] Care Team Providers Name Role Phone Delvin Mcmillan MD Primary Care Provider Encounter Details Date Type Department Care Team Description 11/20/2016 Abstract [facility] Nila Blunt MD Nephrology - S [address] [place] [address] [place] [address] (Wo rk) Social History Tobacco Use Types [...] Name Priority Date/Time Associated Diagnosis Comme nts HEMOGLOBIN A1C Routine 08/14/2014 Results for t his procedure are i n the results section . LIPID PROFILE (INCLUDES Routine 08/14/2014 Resu lts for this CHOLESTEROL, procedure are i n the TRIGLYCERIDES, HDL, LDL) res ults section. COMPREHENSIVE METABOLIC Routine 08/14/2014 Resu lts for this PANEL (CMP) procedure are i n the results section . COMPLETE BLOOD COUNT Routine 04/18/2013 Results for this procedure are i n the results section . BASIC METABOLIC PANEL Routine 04/18/2013 Result s for this (BMP) procedure are i n the results section . COMPREHENSIVE METABOLIC Routine 12/14/2012 Resu lts for this PANEL (CMP) procedure are i n the results section . documented in this encounter Results HEMOGLOBIN A1C (08/14/2014) athologist [facility] Hemoglobin A1C, 5.7 [facility] Est Avg CENTRAL Glucose, [facility] Specimen (Source) Anatomical Location Collection Method / Collectio n Time Received Time / Laterality Volume Blood specimen 08/14/2014 (specimen) Delvin Mcmillan MD CHEMISTRY & BLOOD GAS ORDERA BLES Performing Organization Address City/[facility] [address]/ZIP Code Phon e Number [facility] [address] LAB COMPREHENSIVE METABOLIC PANEL (CMP) (08/14/2014) [facility] GFR, >60 CENTRAL Calculated, [facility] Glucose, Serum, [address] [place] External [facility] Albumin, 3.9 [place] External [facility] Total Alkaline 55 CENTRAL Phosphatase, [facility] ALT, External 22 [facility] AST, External 13 [facility] BUN, External 21 [facility] Calculated CENTRAL Calcium, [facility] Calcium, 9.5 [place] External [facility] Chloride, 104 [place] External [facility] CO2, External 30 [facility] Creatinine, 0.6 [facility] Fasting?, [place] External [facility] Potassium, 4.5 [facility] Sodium, 141 [facility] Total Protein, 7.2 [facility] Bilirubin, 0.5 CENTRAL Total, [facility] Specimen (Source) Anatomical Location Collection Method / Collectio n Time Received Time / Laterality Volume Blood specimen 08/14/2014 (specimen) Delvin Mcmillan MD CHEMISTRY & BLOOD GAS ORDERA BLES Performing Organization Address City/[facility] [address]/ZIP Code Phon e Number [facility] [address] [place] [phone] [facility] LIPID PROFILE (INCLUDES CHOLESTEROL, TRIGLYCERIDES, HDL, LDL) (08/14/2014) athologist [facility] Cholesterol, 230 [facility]ENTRAL External [facility] Triglycerides, 186 CENTRAL [facility] HDL, External 46 [facility] LDL, External 147 [facility] Chol/HDL Ratio, CENTRAL External [facility] Fasting?, [place] External [facility] Specimen (Source) Anatomical Location Collection Method / Collectio n Time Received Time / Laterality Volume Blood specimen 08/14/2014 (specimen) Delvin Mcmillan MD CHEMISTRY & BLOOD GAS ORDERA BLES Performing Organization Address City/[facility] [address]/ZIP Code Phon e Number [facility] [address] LAB HEMAGRAM (04/18/2013) athologist Signature HCT, External 29.1 [facility] MCH, External 29.9 [facility] MCV, External 87.1 [facility] MCHC, External 34.4 [facility] Hemoglobin, 10.0 [facility] WBC, External 4.8 [facility] RBC, External 3.34 [facility] PLT, External 259 [facility] RDW-CV, 12.3 [facility] Specimen (Source) Anatomical Location Collection Method / Collectio n Time Received Time / Laterality Volume Blood specimen 04/18/2013 (specimen) Jagdeep Martin MD HEMATOLOGY & PF4 ORDERABLES Performing Organization Address City/[facility] [address]/ZIP Code Phon e Number [facility] [address] LAB BASIC METABOLIC PANEL (04/18/2013) P athologist Signature GFR, >60 CENTRAL Calculated, [facility] LAB Glucose, Serum, 107 [facility] External [facility] Calculated CENTRAL Calcium, [facility] LAB BUN, External 8 [facility] Calcium, 9.1 [place] External [facility] Chloride, 111 CENTRAL External [facility] CO2, External 26 [facility] Creatinine, 0.7 CENTRAL External [facility] Fasting?, [place] External [facility] Potassium, 4.1 [facility] Sodium, 143 [facility] Specimen (Source) Anatomical Location Collection Method / Collectio n Time Received Time / Laterality Volume Blood specimen 04/18/2013 (specimen) Jagdeep Martin MD CHEMISTRY & BLOOD GAS ORDER EVELYN Performing Organization Address City/[facility] [address]/ZIP Code Phon e Number [facility] [address] [place] [phone] [place] [address] LAB COMPREHENSIVE METABOLIC PANEL (CMP) (12/14/2012) P athologist Signature GFR, >60 CENTRAL Calculated, [facility] Glucose, Serum, 108 CENTRAL External [facility] Albumin, 4.5 CENTRAL External [facility] Total Alkaline 55 CENTRAL Phosphatase, [facility] ALT, External 23 [facility] AST, External 12 [facility] BUN, External 23 [facility] Calculated CENTRAL Calcium, [facility] Calcium, 10.4 [facility] Chloride, 104 [facility] CO2, External 31 [facility] Creatinine, 0.9 [facility] Fasting?, [facility] Potassium, 4.7 [facility] Sodium, 140 CENTRAL [facility] Total Protein, 7.3 [facility] Bilirubin, 0.6 CENTRAL Total, [facility] Specimen (Source) Anatomical Location Collection Method / Collectio n Time Received Time / Laterality Volume Blood specimen 12/14/2012 (specimen) Delvin Mcmillan MD CHEMISTRY & BLOOD GAS ORDERA BLES Performing Organization Address [facility] [address]/ZIP Code Phon e Number [facility] [address] LAB documented in this encounter Visit Diagnoses Not on filedocumented in this encounter Discontinued Medications Medication Sig Discontinue Reason Start Date End Date UNABLE TO FIND Med Name: Adult Error 11/20/2016 chewable Multivitamin . DIAZEPAM (VALIUM Take 5 mg by mouth as needed (for reaction to MSG or other chemicals) . Error 11/20/2016 ORAL) documented as of this encounter Historical Medications This list may reflect changes made after this encounter. Medication Sig Dispensed Refills Start Date End Date MULTIVITAMIN ORAL Take by mouth. 0 eyfzkwr-beqajqasssbdi-ijpco Take 0.5 Tabs by 0 ine (EXCEDRIN MIGRAINE) mouth as needed for 250-250-65 mg per tablet Headaches. DIAZepam (VALIUM) 5 mg Take 2.5 mg by mouth 0 tablet every 12 hours as needed for Anxiety. added in this encounter Care Teams Lead Technician Relationship Specialty Start Date End Date Delvin Mcmillan MD PCP - General 09/10/11 10/14/[address] [place] [phone] documented as of this encounter
--- OUTSIDE RECORDS SUMMARY | 2022-01-17 13:16 | XMS_ITS | Encounter Summary ---
:1945 Author Organization [facility] Address [address] [place] [address] Care Team Providers Name Role Phone Delvin Mcmillan MD Primary Care Provider Reason for Visit Reason Onset Date Comments Eye Problem 08/17/2013 Encounter Details Date Type Department Care Team Description 08/17/2013 Telephone [facility] Charito Mcclelland cca, COA Eye Problem Ophthalmology - [place] in [address] [facility] [address] [place] [address] [address] [place], [place] [id number] Social History Tobacco Use Types Packs/Day Years Used Date Smoking Tobacco: Never Smokeless Tobacco: Never Alcohol Use Standard Drinks/Week Comments No 0 (1 standard drink = 0.6 oz pure alcoho l) Sex Assigned at Date Recorded Not on file documented as of this encounter Miscellaneous Notes Telephone Encounter - Maile Mcclelland - 08/17/2013 1551 EDT Pt called, concerned that her eyes were still dilated from this mid mornings visit. I discussed withher dilation can last a number of hours, depending on the individual, said that at her next visit she could explain to tech sensitive to drops & to check w/ to see if a lower dose could be used.Explained that at her last visits w/Dr. Forte, lesser % of dilation was used. documented in this encounter Plan of Treatment Not on filedocumented as of this encounter Visit Diagnoses Not on filedocumented in this encounter Care Teams Pulp And Paper Tester Relationship Specialty Start Date End Date Delvin Mcmillan MD PCP - General 09/10/11 10/14/[address] [place] [phone] documented as of this encounter
--- OUTSIDE RECORDS SUMMARY | 2022-01-17 13:16 | XMS_ITS | Encounter Summary ---
:1945 Author Organization [facility] Address [address] [place] [address] Care Team Providers Name Role Phone Delvin Mcmillan MD Primary Care Provider Encounter Details Date Type Department Care Team Description 10/26/2014 Hospital Encounter [facility] - Unknown, Pro[facility] [phone] [place] [address] (Work) [place] [address] Social History Tobacco Use Types Packs/Day Years Used Date Smoking Tobacco: Never Smokeless Tobacco: Never Alcohol Use Standard Drinks/Week Comments No 0 (1 standard drink = 0.6 oz pure alcoho l) Sex Assigned at Date Recorded Not on file documented as of this encounter Medications at Time of Discharge Medication Sig Dispensed Refills Start Date End Date carvedilol (COREG) Take 6.25 mg by mouth 2 times daily . 0 6.25 mg tablet DIAZEPAM (VALIUM ORAL) Take 5 mg by mouth as needed (for reaction to MSG or other chemicals) . 0 11/20/2016 UNABLE TO FIND Med Name: Adult 0 11/20 chewable Multivitamin . documented as of this encounter Discharge Disposition Disposition Code Departure Means Destination Home or Self Intermediate documented in this encounter Plan of Treatment Not on filedocumented as of this encounter Visit Diagnoses Not on filedocumented in this encounter Care Teams Machine Lay Out Worker Relationship Specialty Start Date End Date Delvin Mcmillan MD PCP - General 09/10/11 10/14/18 [address] [place] [phone] documented as of this encounter
--- OUTSIDE RECORDS SUMMARY | 2022-01-17 13:16 | XMS_ITS | Encounter Summary ---
:1945 Author Organization [facility] Address [address] [place] [address] Care Team Providers Name Role Phone Liane Vera WILSON Primary Care Provider [phone] Encounter Details Date Type Department Care Team Description 03/31/2019 Results Only [facility] Joey Mckee, [address] [place] [phone] (Wo rk) Social History Tobacco Use Types [...] Procedure Name Priority Date/Time Associated Comments Diagnosis LIPASE - [facility] Routine 03/31/2019 12:11 Results fo r this EST procedure are i n the results section. COMPLETE BLOOD COUNT Routine 03/31/2019 12:11 Res ults for this WITH DIFFERENTIAL EST procedure are in (AUTO) the results section. COMPREHENSIVE Routine 03/31/2019 12:11 Results fo r this METABOLIC PANEL (CMP) EST proced ure are in the results section. documented in this encounter Results LIPASE - [facility] (03/31/2019 12:11 EST) P athologist Signature LIPASE 108 <251 U/L 03/31/2019 [facility] - 12:33 EST [facility] Specimen Anatomical Collection Method Collection Time Receive d Time (Source) Location / / Volume Laterality 03/31/2019 12:11 03/31/2019 EST 12:13 EST Joey Mckee MD CHEMISTRY & BLOOD GAS ORDERA BLES Performing Organization Address City/State/ZIP Code Phon e Number [facility] [address] [place], [place] [id number] [place] [address] LAB (ABNORMAL) COMPREHENSIVE METABOLIC PANEL (CMP) (03/31/2019 12:11 EST) [facility] Method Time Signature Albumin % 4.7 3.4 - 4.9 03/31/2019 [facility] g/dL 12:33 [facility] ALKALINE 51 38 - 126 03/31/2019 [place] [facility]OSPHAT[facility] - U/L 12:33 [facility] BILIRUBIN TOTAL 0.6 0.2 - 1.3 03/31/2019 [place] mg/dL 12:33 [facility] BUN - [facility] 22 10 - 26 03/31/2019 [place] mg/dL 12:33 [facility] CALCIUM - [facility] 10.7 (H) 8.5 - 10.5 03/31/2019 [place] mg/dL 12:33 [facility] Chloride 102 96 - 110 03/31/2019 [facility] mmol/L 12:33 [facility] CO2 Total 29 22 - 32 03/31/2019 [facility] mEq/L 12:33 [facility] CREATININE 0.65 0.52 - 03/31/2019 [place] 1.04 mg/dL 12:33 [facility] eGFR >60 03/31/2019 [place] 12:33 [facility] Comment: Chronic renal impairment is defined as G FR <60 Multiply result by 1.210 for [place] r[place] patients. eGFR calculated using the IDMS-traceable MDRD Study Equation. ??(effective 12/19/2013) Anion Gap 8 0 - 18 03/31/2019 12:33 [facility] GLUCOSE - [facility] 96 70 - 100 mg/dL 03/31/2019 12:33 [facility] Potassium 4.4 3.5 - 5.0 mEq/L 03/31/2019 12:33 [facility] TRAL [facility] Sodium 139 136 - 145 mEq/L 03/31/2019 12:33 [facility] TOTAL PROTEIN - [facility] 7.8 6.2 - 8.2 gm/dL 03/31/2019 12:33 EST [facility] SGOT/AST - [facility] 26 14 - 36 U/L 03/31/2019 12:33 EST C [facility]AL [facility] SGPT/ALT - CV 17 0 - 35 U/L 03/31/2019 12:33 EST [facility] Specimen Anatomical Collection Method Collection Time Receive d Time (Source) Location / / Volume Laterality 03/31/2019 12:11 03/31/2019 EST 12:13 EST Joey Mckee MD CHEMISTRY & BLOOD GAS ORDERA BLES Performing Organization Address City/State/ZIP Code Phon e Number [facility] [address] LAB COMPLETE BLOOD COUNT WITH DIFFERENTIAL (AUTO) (03/31/2019 12:11 EST) P athologist Signature Gran # 4.2 2.2 - 8.85 03/31/2019 [place] 10e3/uL 12:18 [facility] BASO # - [facility] 0.03 0.01 - 03/31/2019 [facility] 0.11 12:18 [facility] 10e/uL [facility] BASO % - [facility] 0 0 - 2 % 03/31/2019 [place] 12:18 [facility] EOS # - [facility] 0.08 0.03 - 03/31/2019 [facility] 0.61 12:18 [facility] 10e3/ul CENTER LAB EOS % - [facility] 1 0 - 5 % 03/31/2019 [place] 12:18 [facility] GRAN % - [facility] 62.1 40 - 80 % 03/31/2019 [place] 12:18 [facility] HEMATOCRIT - 43.5 34.9 - 03/31/2019 [place] [facility] 44.4 % 12:18 [facility] HEMOGLOBIN - 14.6 11.6 - 03/31/2019 [place] [facility] 15.2 g/dl 12:18 [facility] IG# - [facility] 0.01 0 - 0.7 03/31/2019 [place] 10e3/uL 12:18 [facility] IG% - [facility] 0.1 0 - 0.9 % 03/31/2019 [place] 12:18 [facility] LYMPH # - CV 1.9 1.09 - 3.3 03/31/2019 [place] 10e3/ul 12:18 [facility] LYMPH% - [facility] 28.7 20 - 40 % 03/31/2019 [place] 12:18 [facility] MEAN CORPUSCULAR 30.7 26.7 - 03/31/2019 [place] HGB - CV 33.3 pg 12:18 [facility] MEAN CORPUSCULAR 33.6 32.1 - 03/31/2019 [place] HGB CONC - CV 35.9 g/dL 12:18 [facility] MEAN CELL VOLUME 91.4 81 - 98 fl 03/31/2019 [facility] - CV 12:18 [facility] MONO # - CV 0.5 0.1 - 0.8 03/31/2019 [place] 10e3/uL 12:18 [facility] MONO% - [facility] 7.5 0 - 12 % 03/31/2019 [place] 12:18 [facility] PLATELET COUNT 302 141 - 377 03/31/2019 [place] 10e3/ul 12:18 [facility] RED BLOOD COUNT 4.76 3.86 - 03/31/2019 [facility] 5.04 12:18 [facility] 10e3/ul [facility] RED CELL DISTRI 11.6 <14.7 % 03/31/2019 [place] WIDTH - [facility] 12:18 [facility] WHITE BLOOD 6.7 4.0 - 12.4 03/31/2019 [place] COUNT - CV 10e3/ul 12:18 [facility] Specimen Anatomical Collection Method Collection Time Receive d Time (Source) Location / / Volume Laterality 03/31/2019 12:11 03/31/2019 [facility] 12:14 [facility] Joey Mckee MD HEMATOLOGY & PF4 ORDERABLES Performing Organization Address City/State/ZIP Code Phon e Number [facility] [address] [place] [address] [facility] documented in this encounter Visit Diagnoses Not on filedocumented in this encounter Care Teams Hub Borer Relationship Specialty Start Date End Date Liane Vera, PRODUCTION SUPPLY EQUIPMENT TENDER PCP - General 10/15/18 [address] [place] [address] documented as of this encounter
--- OUTSIDE RECORDS SUMMARY | 2022-01-17 13:16 | XMS_ITS | Encounter Summary ---
:1945 Author Organization [facility] Address [address] [place] [address] Care Team Providers Name Role Phone Liane Vera WILSON Primary Care Provider [phone] Reason for Visit Reason Comments Eye Problem New floaters left eye x 3 da ys Encounter Details Date Type Department Care Team Description 10/15/2018 Office Visit [facility] Chichi Farris, Ophthalmology - [place] [address] [place] [address] [place], [place] [address] [phone] Social History Tobacco Use Types Packs/Day Years Used Date Smoking Tobacco: Never Smokeless Tobacco: Never Alcohol Use Standard Drinks/Week Comments No 0 (1 standard drink = 0.6 oz pure alcoho l) Sex Assigned at Date Recorded Not on file documented as of this encounter Progress Notes Chichi Farris MD - 10/15/2018 1110 EDT Chief Complaint Patient presents with ??? Eye Problem New floaters left eye x 3 days HPI The patient is a 73 y.o. female c/o changes in floaters over the past few days. First onset a coupleof days ago, saw Dr. Douglass who did not see any retinal tears but advised her to call with changes. Since then has had some fluctuations in floaters, some flashing. Fell last night- jolted but did not hit her head. Has not noticed any floaters while in office today. No pain. Right Eye: NL Left Eye: Floaters, Flashes Visual Aid: Glasses Current Rx Age Location: Left eye Pain: 0 - No pain Quality: Severity: Moderate Duration: Days Timing: Lasts: Context: Patient was seen Thursday @ Dr. Douglass office for flashes of light, in left eye, that had started on Thursday. Noticed many new floaters that evening after seeing Dr. Douglass- not as many the nextday but called their office in the afternoon. Was reassured and told to call Thursday if there were any other changes. Modifying factors: She fell last night and was jolted and head shook hard. She noticed flashes againconsistantly for a few hours but then they stopped again. Patient feels there are still some floaters and weblike spots. Associated Signs & Symptoms: Attestation: ROS Constitutional: NL ENT/Mouth Cardiovascular: Respiratory: Gastrointestinal: Genitourinary: Musculoskeletal: Integumentary: Neurologic: Psychiatric: Endocrine: Hematologic: Immunologic: Getter Filler: Exposures: None Other: Attestation: Base Eye Exam Visual Acuity (Snellen - Linear) Right Left Dist cc 20/40 +2 20/20 Dist ph cc 20/20 Tonometry (Applanation, 12:03) Right Left Pressure 19 16 Pupils Pupils Dark Light APD Right PERRL 6 5 None Left PERRL 5 4 None Dilation Both eyes: 2.5% Phenylephrine @ 12:03 Slit Lamp and Fundus Exam External Exam Right Left External Normal Normal Slit Lamp Exam Right Left Lids/Lashes Normal Normal Conjunctiva/Sclera White and quiet White and quiet Cornea Stromal opacity inferior to visual axis Clear Anterior Chamber Deep and quiet Deep and quiet Iris Round and reactive Round and reactive Lens 2-3+ Nuclear sclerosis 2-3+ Nuclear sclerosis Fundus Exam Right Left Vitreous Posterior vitreous detachment negative Cosmo's sign, NO PVD Disc Normal Normal C/D Ratio 0.05 0.1 Macula Drusen superonasal and superior to fovea Drusen temporal and superior to fovea Vessels Normal Normal Periphery Normal Normal Refraction Wearing Rx Sphere Cylinder Sunman Add Right +1.50 Sphere +2.50 Left +1.50 +0.75 155 +2.50 Type: Bifocal DIAGNOSTIC TESTS: IMPRESSION & PLAN: ?? Floaters, left eye - no discreet PVD. Retina flat with no holes/tears/retinal detachment - call for increase in flashes or floaters, decreased vision ??? 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 Macular drusen/early AMD, bilateral - findings not significant enough to merit AREDS 2 supplement - incorporate dark leafy greens into diet (kale, chard, spinach) and colorful fruits and vegetables - as per Dr. Douglass ??? Nuclear senile cataract of both eyes - follow with Dr. Douglass I have reviewed the patient's past medical, family, social and surgical history. I have also reviewed the patient's medications, allergies, and problem list. I performed my own HPI and have reviewed the tech's ROS as well. I completed this exam personally. Chichi Farris MD I am scribing for Chichi Farris MD, while she is personally performing the service. KELLY Quispe Patient Education Topic: floaters Method: Demonstration and Verbal Taught to: Patient Barriers: None Outcomes: independent and verbalized understanding Signature: Chichi Farris MD documented in this encounter Plan of Treatment Not on filedocumented as of this encounter Visit Diagnoses Diagnosis Floaters, left - Primary Posterior vitreous detachment of right e ye Vitreous degeneration Macular drusen, bilateral Nuclear senile cataract of both eyes documented in this encounter Eye Exam Visual Acuity (Snellen - Linear) Right eye Left eye Dist cc 20/40 +2 20/20 Dist ph cc 20/20 Tonometry (Applanation, 12:03) Right eye Left eye Pressure 19 16 Pupils Pupils Dark Light APD Right eye PERRL 6 5 None Left eye PERRL 5 4 None Dilation Both eyes: 2.5% Phenylephrine @ 12:03 External Exam Right eye Left eye External Normal Normal Slit Lamp Exam Right eye Left eye Lids/Lashes Normal Normal Conjunctiva/Sclera White and quiet White and quiet Cornea Stromal opacity inferior to visual Clear axis Anterior Chamber Deep and quiet Deep and quiet Iris Round and reactive Round and reactive Lens 2-3+ Nuclear sclerosis 2-3+ Nuclear scle rosis Vitreous Posterior vitreous detachment negative S bharat's sign, NO PVD Fundus Exam Right eye Left eye Disc Normal Normal C/D Ratio 0.05 0.1 Macula Drusen superonasal and superior to Druse n temporal and superior to fovea fovea Vessels Normal Normal Periphery Normal Normal Wearing Rx Sphere Cylinder Sunman Add Right eye +1.50 Sphere +2.50 Left eye +1.50 +0.75 155 +2.50 Type: Bifocal Care Teams Sales Process Manager Relationship Specialty Start Date End Date Liane Vera APRN PCP - General 10/15/18 [address] [place] [phone] documented as of this encounter
--- OUTSIDE RECORDS SUMMARY | 2022-01-17 13:16 | XMS_ITS | Encounter Summary ---
:1945 Author Organization [facility] Address [address] [place] [address] Care Team Providers Name Role Phone Delvin Mcmillan MD Primary Care Provider Reason for Visit Reason Comments Eye Pain having dull ache behind both eyes since eye exam yesterday Encounter Details Date Type Department Care Team Description 08/18/2013 Office Visit [facility] Prachi Gilliam MD Ophthalmology - [place] in [address] [place] [phone] [address] [place], [place] [address] [phone] Social History Tobacco Use Types Packs/Day Years Used Date Smoking Tobacco: Never Smokeless Tobacco: Never Alcohol Use Standard Drinks/Week Comments No 0 (1 standard drink = 0.6 oz pure alcoho l) Sex Assigned at Date Recorded Not on file documented as of this encounter Progress Notes Tino Gilliam MD - 08/18/2013 3103 EDT Images from the original note were not included. Chief Complaint Patient presents with ??? Eye Pain having dull ache behind both eyes since eye exam yesterday HPI The patient is a 68 y.o. female who noted that her pupils remained dilated for the entire evening after her eye exam yesterday. She also noted a pressure- like feeling behind both eyes. She used visine drops to relieve the pain and notes that the eyes feel perhaps worse. She has no change in her vision and has had no prior reaction to dilation drops. She reports that in general she is chemically sensitive and requires lower doses of medications. Right Eye: Left Eye: Visual Aid: Current Rx Age Location: Pain: Quality: Severity: Duration: Timing: Lasts: Context: Modifying factors: Associated Signs & Symptoms: Attestation: ROS Constitutional: ENT/Mouth Cardiovascular: Respiratory: Gastrointestinal: Genitourinary: Musculoskeletal: Integumentary: Neurologic: Psychiatric: Endocrine: Hematologic: Immunologic: Chrome Tanner: Exposures: Other: Attestation: Base Eye Exam Visual Acuity Right Left Dist cc 20/20 -1 20/20 -1 Method: Snellen - Linear Neuro/Psych Oriented x3: Yes Mood/Affect: Normal DIAGNOSTIC TESTS: IMPRESSION & PLAN: 1. Medication reaction Likely due to phenylephrine. Appears to be resolving. Added phenylephrine to adverse reaction list and will recommend not using it at future eye exams. Recommended cool compresses 2.Papilloma, left lower eyelid Involving lower punctum. -photos taken today I have reviewed the patient's past medical, family, social and surgical history. I have also reviewed the patient's medications, allergies, and problem list. I performed my own HPI and have reviewed the tech's ROS as well. I personally completed this exam myself. Tino Gilliam MD I am scribing for Tino Gilliam MD, while he is personally performing the service. Baldo Mcclelland Patient Education Topic: medication reaction, papilloma of eyelid Method: Verbal Taught to: Patient Barriers: None Outcomes: independent Signature: Tino Gilliam MD documented in this encounter Miscellaneous Notes Addendum Note - Baldo Mcclelland - 08/31/2013 1043 EDT Addended by: BALDO MCCLELLAND on: 08/31/2013 10:43 Modules accepted: Orders documented in this encounter Plan of Treatment Not on filedocumented as of this encounter Visit Diagnoses Diagnosis Medication reaction - Primary Unspecified adverse effect of unspecifie d drug, medicinal and biological substance Papilloma of eyelid Benign neoplasm of eyelid, including can thus documented in this encounter Discontinued Medications Medication Sig Discontinue Reason Start Date End Date multivitamin (FLINTSTONES Take 1 Tab by Error 0 08/31/2013 COMPLETE) chewable tablet mouth daily. documented as of this encounter Historical Medications This list may reflect changes made after this encounter. Medication Sig Dispensed Refills Start Date End Date UNABLE TO FIND Med Name: Adult chewable 0 11/20/2016 Multivitamin . added in this encounter Eye Exam Visual Acuity (Snellen - Linear) Right eye Left eye Dist cc 20/20 -1 20/20 -1 Neuro/Psych Oriented x3: Yes Mood/Affect: Normal Slit Lamp Exam Right eye Left eye Lids/Lashes 1+ Blepharitis 1+ Blepharitis, justino lloma at inferior punctum Conjunctiva/Sclera White and quiet White and quiet Cornea anterior stromal scar inferior to Clear visual axis Anterior Chamber Deep and quiet Deep and quiet Iris Round and reactive Round and reactive Care Teams Propellant Charge Zone Assembler Relationship Specialty Start Date End Date Delvin Mcmillan MD PCP - General 09/10/11 10/14/[address] [place] [phone] documented as of this encounter
--- OUTSIDE RECORDS SUMMARY | 2022-01-17 13:16 | XMS_ITS | Encounter Summary ---
:1945 Author Organization [facility] Address [address] [place] [address] Care Team Providers Name Role Phone Jenna Retana MD Primary Care Provider Unavailable Encounter Details Date Type Department Care Team Description 12/12/2009 Abstract Used for ABSTRACTING Data Jenna Retana MD [phone] Social History Tobacco Use Types Packs/Day Years Used Date Smoking Tobacco: Never Assessed Sex Assigned at Date Recorded Not on file documented as of this encounter Plan of Treatment Not on filedocumented as of this encounter Visit Diagnoses Not on filedocumented in this encounter Care Teams Carpenter Labor Supervisor Relationship Specialty Start Date End Date Jenna Retana MD PCP - General 02/22/09 09/09/11 documented as of this encounter
--- OUTSIDE RECORDS SUMMARY | 2022-01-17 13:16 | XMS_ITS | Encounter Summary ---
:1945 Author Organization [facility] Address [address] [place] [address] Care Team Providers Name Role Phone Delvin Mcmillan MD Primary Care Provider Encounter Details Date Type Department Care Team Description 08/01/2015 Hospital Encounter [facility] - Unknown, [facility] [phone] [place] [address] (Work) [place] [address] Social History Tobacco Use Types [...] Code Departure Means Destination Home or Self Longterm documented in this encounter Plan of Treatment Not on filedocumented as of this encounter Visit Diagnoses Not on filedocumented in this encounter Care Teams Bit And Shank Department Supervisor Relationship Specialty Start Date End Date Delvin Mcmillan MD PCP - General 09/10/11 10/14/18 [address] [place] [phone] documented as of this encounter
--- OUTSIDE RECORDS SUMMARY | 2022-01-17 13:16 | XMS_ITS | CCD ---
[...] Encounters Encounter Diagnosis Diagnosis Code Start Date Canceled operative procedure [id number] 05/16/2021 Social History Smoking Status Code Start Date End Date Never smoker [id number] Patient Decision Aids Unknown or Not Available. Discharge Instructions You were admitted to [facility] on 05/16/2021 11:19 with a principal diagnosis of Procedure and treatment not carried o ut for other reasons You were discharged from [facility] on 05/16/2021 09:32 Should you have any questions prior to [...]
--- OUTSIDE RECORDS SUMMARY | 2022-01-17 13:16 | XMS_ITS | Encounter Summary ---
:1945 Author Organization [facility] Address [address] [place] [address] Care Team Providers Name Role Phone Delvin Mcmillan MD Primary Care Provider Encounter Details Date Type Department Care Team Description 01/25/2013 Hospital Encounter [facility] - Unknown, [facility] [phone] [place] [address] (Work) [place] [address] Social History Tobacco Use Types Packs/Day Years Used Date Smoking Tobacco: Never Smokeless Tobacco: Never Alcohol Use Standard Drinks/Week Comments No 0 (1 standard drink = 0.6 oz pure alcoho l) Sex Assigned at Date Recorded Not on file documented as of this encounter Medications at Time of Discharge Medication Sig Dispensed Refills Start Date End Date carvedilol (COREG) 6.25 Take 6.25 mg by mouth 2 times daily . 0 mg tablet DIAZEPAM (VALIUM ORAL) Take 5 mg by mouth as needed (for reaction to MSG or other chemicals) . 0 11/20/2016 documented as of this encounter Discharge Disposition Disposition Code Departure Means Destination Home or Self [facility] documented in this encounter Plan of Treatment Not on filedocumented as of this encounter Visit Diagnoses Not on filedocumented in this encounter Care Teams Bi Application Developer Relationship Specialty Start Date End Date Delvin Mcmillan MD PCP - General 09/10/11 10/14/[address] [place] [phone] documented as of this encounter
--- OUTSIDE RECORDS SUMMARY | 2022-01-17 13:16 | XMS_ITS | Encounter Summary ---
:1945 Author Organization [facility] Address [address] [place] [address] Care Team Providers Name Role Phone Unavailable Primary Care Provider Unavailable Encounter Details Date Type Department Care Team Description 02/04/2007 Before PRISM Converted [facility] - Jacob Zayas, Visit (Danielle) Danielle yanez MD [address] [facility] [address] [place] [address] [facility] [address] [place] [address] Social History Tobacco Use Types Packs/Day Years Used Date Smoking Tobacco: Never Assessed Sex Assigned at Date Recorded Not on file documented as of this encounter Consult Notes Shade Zayas MD - 12/26/2008 0423 EST [facility] - 02/04/2007 Jenna Retana MD [address] [place] [address], [address] [place] [address] Retana: Chief Complaint: Nasal polyp. History of Present Illness: A 61-year-old female with a two-year history of a lesion in the left naris. The patient also complains of postnasal drip, cough, pressure in the head. No improvement with nasal sprays. Her symptoms came on gradually. She also complains of left ear pressure. Past Medical History: The patient denies any other medical illnesses. Medications: Is not taking any current medications. Allergies: Has no known drug allergies. Family History: Significant for diabetes, heart disease, and cancer. Social History: The patient is a nonsmoker. Review of Systems: Significant for cough, shortness of breath, abdominal pain, urinary tract infections, back pain, headaches, and otherwise, negative for multiple system review. Objective: General: Well-developed, well-nourished, cooperative, adult female in no acute distress. Normal voice. Height 5 feet 5 inches. Weight 130 pounds. Vital signs: Blood pressure 150/90, pulse 68, respirations 14, temperature 98.3. Pain level of two. The face is normal without lesions. No tenderness to palpation. Salivary glands are normal. Facial strength is symmetric. Eye exam is normal. Ears: External ears are normal. Canals are clear. The tympanic membranes are normal. Hearing is intact bilaterally. Nose: Nasal dorsum is midline. There is a right nasal septal deviation, and there is also a small round polypoid lesion in the floor of the left nasal vestibule. Inferior turbinates and middle turbinates also somewhat enlarged and inflamed. Fiberoptic endoscopy was performed. This did not show the lesion to be verrucous in nature. Both middle meatus are clear. The nasopharynx is clear. Oral cavity reveals a venous zhou in the right lower lip. The rest of the oral cavity is clear. Posterior pharynx is clear. Neck: No pathologic lymphadenopathy. Trachea is midline. Thyroid is normal. Chest is clear to auscultation. Heart: Regular rate andrhythm. The base of tongue, epiglottis, vallecula, piriform sinuses, false vocal cords, and true vocal cords are within normal limits. Assessment: Left nasal granuloma, nasoseptal deviation, left lower lip venous zhou. Rule out sinusitis. Plan: Will obtain a CT scan of the paranasal sinus. Will follow up and schedule office excision of the left nasal lesion. Also, in the future, will consider excision of the lip lesion. Sincerely, Signed by Shade Zayas MD 02/17/2007 11:25 Shade Zayas MD - Shade Zayas MD - p Job ID: [id number] Doc ID: [id number] cc: Jenna Retana MD - Shade Zayas MD - wlp Job ID: [id number] Doc ID: [id number] cc: Jenna Retana MD documented in this encounter Plan of Treatment Not on filedocumented as of this encounter Visit Diagnoses Not on filedocumented in this encounter
--- OUTSIDE RECORDS SUMMARY | 2022-01-17 13:16 | XMS_ITS | Encounter Summary ---
:1945 Author Organization [facility] Address [address] [place] [address] Care Team Providers Name Role Phone Delvin Mcmillan MD Primary Care Provider Liane Vera APRN Primary Care Provider [phone] Encounter Details Date Type Department Care Team Description 07/31/2017 Historical Results [facility] - Bernadine Khalil , Only [facility] - Main [facility] [address] [place] [address] [facility] [address] [place] [phone] Social History Tobacco Use Types Packs/Day Years Used Date Smoking Tobacco: Never Smokeless Tobacco: Never Alcohol Use Standard Drinks/Week Comments No 0 (1 standard drink = 0.6 oz pure alcoho l) Sex Assigned at Date Recorded Not on file documented as of this encounter Plan of Treatment Not on filedocumented as of this encounter Procedures Procedure Name Priority Date/Time Associated Diagnosis Comme nts LIPID PROFILE Routine 07/31/2017 10:06 Results fo r this (INCLUDES EDT procedure are i n CHOLESTEROL, the results TRIGLYCERIDES, HDL, section. LDL) documented in this encounter Results (ABNORMAL) LIPID PROFILE (INCLUDES CHOLESTEROL, TRIGLYCERIDES, HDL, LDL) (07/31/2017 10:06 EDT) athologist Signature Triglyceride 203 <150 mg/dL 07/31/2017 CENTRAL 10:59 EDT [facility] Comment: Adult: Normal: ?<150 mg/dl ? Borderline High: 150-199 mg/dl ? High: ?200-499 mg/dl ? Very High: >on=934 Cholesterol 228 (H) <200 mg/dL 07/31/2017 10:59 EDT CENTRA L [facility] Comment: Acceptable: ??<200 Borderline: ??200-239 High: ?> or = 240 Chol/HDL Ratio 4.3 0 - 4.5 07/31/2017 10:59 EDT [facility] Comment: DESIRABLE RATIO IS LESS THAN 4.1 PATIENTS ARE CONSIDERED AT RISK: WOMEN RATIO >5 MEN RATIO >6 FASTING? - [facility] Yes 07/31/2017 10:06 EDT SKIP TRAL [facility] HDL 53 40 - 60 mg/dL 07/31/2017 10:59 EDT [facility] Comment: ?? Reference Range Low: ? < 40 ??mg/dL Normal: ??40-60 mg/dL High: ?>= 60 mg/dL LDL CHOLESTEROL - 134 (H) 60 - 100 mg/dL 07/31/2017 10:59 EDT [facility] Non HDL Cholesterol 175 mg/dl 07/31/2017 10:59 EDT [facility] Comment: Desirable: ?Less than 130 Borderline High: ??130-159 High: ? 160-189 Very High: ?Greater than or eq ual to 190 Specimen Anatomical Collection Method Collection Time Receive d Time (Source) Location / / Volume Laterality 07/31/2017 10:06 07/31/2017 EDT 10:06 EDT Narrative [facility] - 018 10:59 EDT Does PT Have a Latex Allergy? NO Sunny Khalil MD CHEMISTRY & BLOOD GAS ORDERA BLES Performing Organization Address City/State/ZIP Code Phon e Number [facility] [address] LAB documented in this encounter Visit Diagnoses Not on filedocumented in this encounter Care Teams Hazardous Materials Handler Relationship Specialty Start Date End Date Delvin Mcmillan MD PCP - General 09/10/11 10/14/18 [address] [place] [phone] Liane Vera APRN PCP - General 10/15/18 [address] [place] [phone] documented as of this encounter
--- OUTSIDE RECORDS SUMMARY | 2022-01-17 13:16 | XMS_ITS | Encounter Summary ---
:1945 Author Organization [facility] Address [address] [place] [address] Care Team Providers Name Role Phone eDlvin Mcmillan MD Primary Care Provider Liane Vera APRN Primary Care Provider [phone] Encounter Details Date Type Department Care Team Description 08/01/2015 Historical Results [facility] - Harjeet Mcmillan Only [facility] Radiology MD Elizabeth Results [address] [facility] [address] [place] [phone] (Wo rk) Social History Tobacco Use Types [...] Name Priority Date/Time Associated Diagnosis Comme nts MA BREAST SCREENING 08/01/2015 14:01 Resu lts for this BILATERAL EDT procedure are i n the results section. documented in this encounter Results MA BREAST SCREENING BILATERAL (08/01/2015 14:01 EDT) Anatomical Region Laterality Modality Breast Bilateral Other Specimen (Source) Anatomical Collection Method Collection Time Re ceived Time Location / / Volume Laterality 08/01/2015 14:01 EDT Narrative 08/02/2015 9:56 EDT ? EXAM: MAMMOGRAM/DIGITAL MAMMO ANDRAE SCREEN ??EX. D/ (1401) ? CLINICAL INFORMATION: ? Z12.39 SCREENING ANA ? TECHNIQUE: ??Full field digital C C and MLO views of both breasts were ? obtained. ??CAD technology was ut ilized. ? NOTE: ??Patient declined mikaela juan ging due to radiation and no breast ? problem history. ? INDICATION: ??Screening ? FINDINGS: ??The fibroglandular pa tterns of the breasts are normal. ? There has been no change when com pared to previous mammograms and ? there is no mammographic evidence of cancer. The breasts are of ? scattered density. ? FINAL ASSESSMENT: ??BILATERAL NAT AST - Category 1 - Negative. Routine ?mamm ographic follow-up is recommended. ? These results will be communicate d to your patient via a lay letter ? from Radiology. ??If any addition al imaging is needed we will contact ? your patient directly. ? SNR:kad ? REPORT ELECTRONICALLY SIGNED 08/03/2015 (1526) ?Reported B y: Cesar Mcgowan MD ?Signed By: ?? Cesar Mcgowan ? CC: ? Transcribed Date/Time: 08/02/2015 (0956) ? Manager Sports: CHENG ? Printed Date/Time: 07/30/2018 (04 25) ? PAGE 1 ? Tory d Report ? Procedure Note Cesar Mcgowan MD - 12/22/2018Formatt ing of this note might be different from the original. EXAM: MAMMOGRAM/DIGITAL MAMMO ANDRAE Santo EX. D/ (1401) CLINICAL INFORMATION: Z12.39 SCREENING ANA TECHNIQUE: Full field digital CC and ML O views of both breasts were obtained. CAD technology was utilized. NOTE: Patient declined mikaela imaging due to radiation and no breast problem history. INDICATION: Screening FINDINGS: The fibroglandular patterns o f the breasts are normal. There has been no change when compared to previous mammograms and there is no mammographic evidence of ca ncer. The breasts are of scattered density. FINAL ASSESSMENT: BILATERAL BREAST - Ca tegory 1 - Negative. Routine mammographic follow-up is recommended. These results will be communicated to y our patient via a lay letter from Radiology. If any additional imagi ng is needed we will contact your patient directly. SNR:kad REPORT ELECTRONICALLY SIGNED 016 (1526) Reported By: Cesar Mcgowan MD Signed By: Cesar Mcgowan CC: Transcribed Date/Time: 08/02/2015 (0985 ) Manager Sports: CHENG Printed Date/Time: 07/30/2018 (8342) PAGE 1 Signed Report Delvin Mcmillan MD IMG MAMMOGRAPHY ORDERABLES documented in this encounter Visit Diagnoses Not on filedocumented in this encounter Care Teams Voicer Relationship Specialty Start Date End Date Delvin Mcmillan MD PCP - General 09/10/11 10/14/18 [address] [place] [phone] Liane Vera APRN PCP - General 10/15/[address] [place] [phone] documented as of this encounter
--- NOTE | 2022-01-17 13:18 | DI.RAD_ITS ---
Exam(s) XR LUMBAR SPINE COMPLETE EXAM: XR LUMBAR SPINE COMPLETE CLINICAL HISTORY: LOW BACK PAIN S/P IMPACT INJURY SEVERAL WEEKS AGO, M54.50. TECHNIQUE: 2D digital imaging was performed. Five views. COMPARISON: No exams were available for comparison FINDINGS: Moderate dextroscoliosis secondary to asymmetric disc narrowing at L2-3 and L3-4 eccentric toward the left. Endplate osteophytes are noted. No compression fractures. Facet degenerative changes are pr esent at L4-5 and L5-S1. IMPRESSION: Degenerative changes and scoliosis. DATA REPOSITORY: RADIATION DOSE DELIVERED:
== END ==
PROVIDERS: PCP Physician Assistant; Visit Provider Physician Assistant
DX: M47.816 Spondylosis without myelopathy or radiculopathy, lumbar region (principal); M47.817 Spondylosis without myelopathy or radiculopathy, lumbosacral region; M41.9 Scoliosis, unspecified; M47.812 Spondylosis without myelopathy or radiculopathy, cervical region
CPT/HCPCS: 72050; 72110

== ENCOUNTER → 2022-07-23 10:38 | Outpatient (BNVA) | payer MEDICARE, MEDICAID, SELFPAY | PROVIDERS: PCP Physician Assistant; Referring Provider Physician Assistant; Visit Provider Surgery | DX: K22.70 Barrett's esophagus without dysplasia (principal) | CPT/HCPCS: 99214 ==

== ENCOUNTER 2022-07-28 10:01 | Day surgery (SDC) | payer MEDICARE, MEDICAID, SELFPAY ==
--- NOTE | 2022-07-27 14:45 | W.ANESPRE ---
General Info Date of Service Date Performed: 07/28/22 Height: 5 ft 4.75 in Weight: 58.06 kg Body Mass Index (BMI): 21.4 Surgical Procedure: Operation Date: 07/28/22 11:20 Proposed Procedure Side Surgeon p Gastroscopy Arturo Sage MD Meds Allergies and Home Medications Allergies Allergy/AdvReac Type Severity Reaction Status Date / Time aspartame Allergy Severe anaphylaxis Verified 07/28/22 10:52 psyllium [From Metamucil] Allergy Severe anaphylaxis Verified 07/28/22 10:52 metronidazole [From Flagyl] Allergy Unknown violent Verified 07/28/22 10:52 reaction amlodipine Allergy Verified 07/28/22 10:52 valsartan Allergy Verified 07/28/22 10:52 alcohol AdvReac Mild Other (See Unverified 07/28/22 10:52 Comment) Home Medication Medication Instructions Recorded whlchff-mqsrbrkodgnqk-pbgqsgcu 250 1 tab PO ONCE 07/12/20 mg-250 mg-65 mg tablet (Excedrin Extra Strength) diazepam 5 mg tablet (Valium) 5 mg PO DAILY PRN 07/12/20 hydrochlorothiazide 12.5 mg tablet 12.5 mg PO DAILY PRN 07/12/20 multivitamin 1 tab PO DAILY 07/20/20 potassium chloride 10 mEq 10 meq PO PRN PRN 09/24/20 tablet,extended release carvedilol 25 mg tablet 25 mg PO BID 07/09/22 Current Visit Medications: Current Medications Generic Name Dose Route Start Last Admin Trade Name Freq PRN Reason Stop Dose Admin Ringer's Solution 1,000 mls @ 80 mls/hr 07/28/22 06:00 IV 07/28/22 23:59 INFUSION RUTH IV Miscellaneous Supplies 1 each 07/28/22 06:00 Iv Access IV 07/28/22 23:59 DIRECTED RUTH Sodium Chloride 0 ml 07/28/22 06:00 Normal Saline Flush 10 Ml Syr IV 07/28/22 23:59 PRN PRN Sodium Chloride 0 ml 07/28/22 06:00 Normal Saline 10 Ml Vial IJ 07/28/22 23:59 DIRECTED PRN Sterile Water 0 ml 07/28/22 06:00 Water,Injection,Sterile 10 Ml Vial IJ 07/28/22 23:59 DIRECTED PRN PFSH Active Problems Active Problems: Problem Status Onset Code Anxiety disorder F41.9 Cervicalgia M54.2 Low back pain M54.50 Lip lesion K13.0 Chronic daily headache R51.9 Barretts esophagus K22.70 History of tonsillectomy and adenoidectomy Z98.890 Migraine G43.909 Asthma J45.909 Cataract H26.9 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, intervertebral disc, 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 Vaginal dryness N89.8 Chronic cough R05 Hyperlipidemia E78.5 Hypertension I10 Sore throat J02.9 Lesion of skin of nose L98.9 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 Epigastric pain R10.13 Diarrhea R19.7 Constipation K59.00 Right lower quadrant abdominal pain R10.31 Acute UTI N39.0 Cholelithiasis K80.20 Weight loss R63.4 Anxiety F41.9 Seborrheic keratoses L82.1 Right knee pain M25.561 Hiatal hernia K44.9 Essential hypertension I10 Bilateral cataracts H26.9 Irritable bowel syndrome with diarrhea K58.0 Internal hemorrhoids K64.8 Medical History Medical History Asymmetrical sensorineural hearing loss Referred otalgia of right ear Sensation of fullness in both ears Surgical History Surgical History (Updated 07/28/22 @ 10:49 by Amy Gonzalez RN) H/O colonoscopy H/O endoscopy Hx of hysterectomy Tobacco Smoking/Tobacco Use Status: Never Alcohol Alcohol Intake: current Alcohol intake frequency: holidays/special occasions only Alcohol type: beer Substance Use Substance use: Never Substance use type: does not use Vital Signs and Lab Results Vital Signs Most Recent Vital Signs in EMR: Temp Pulse Resp BP Pulse Ox 36.8 C 70 18 184/96 H 99 07/28/22 10:12 07/28/22 10:12 07/28/22 10:12 07/28/22 10:12 07/28/22 10:12 Lab Results Blood Type / Crossmatch: No Data to Display Complete Blood Count: No Data to Display Complete Metabolic Panel: No Data to Display Liver Function Panel: No Data to Display Coagulation Panel: No Data to Display Cardiac Panel: No Data to Display Arterial Blood Gas: No Data to Display Venous Blood Gas: No Data to Display Pancreas Panel: No Data to Display Thyroid Panel: No Data to Display Infectious Disease: No Data to Display Blood Cultures: No Data to Display Toxicology Panel: No Data to Display Anesthesia Assessment and Plan Anesthesia History Personal History: No History of Anesthesia Complications Family History: No Family History of Anesthesia Complications Exercise Tolerance Exercise Tolerance: Metabolic Equivalents>4 Cardiac & Pulmonary Exam Cardiac Exam: Normal S1/S2 Heart Sounds Pulmonary Exam: Clear Bilateral Breath Sounds Implantable Cardiac Device Does patient have a Pacemaker or an ICD?: No Airway Exam Known Difficult Airway: No Mallampati Class: 2 Mouth Opening: Normal (> 3cm) Thyromental Distance: Greater than 3 cm Neck Range of Motion: Full ROM Neck Circumference: Normal Teeth Condition: Normal Dentition ASA Classification ASA Score: ASA 2 Emergency Case?: No NPO Status NPO Status: NPO Clears >2 hours, Solids >8 hours Anesthesia Plan Resuscitation Status: Full Code Anesthesia Technique: General Anesthesia Airway Planned: Natural Airway Monitors Used: Standard Monitors Preoperative Comments:: 77 yo female for EGD. Sig PMHx: asthma, barretts, neck pain, headache, anxiety, HTN (carvedilol, HCTZ), never smoker, occ EtOH
--- NOTE | 2022-07-27 21:20 | PDOC.DSDIS_ITS ---
Date of service: 07/28/22 Time of Service: 12:47 Discharge Plan Disposition Patient Disposition: Home Condition: Good Discharge Details Reason For Visit: EGD Attending Provider: Arturo Sage Primary Care Provider: Cesar Klein Home Meds and New Rx's Prescriptions: New omeprazole 20 mg capsule,delayed release(DR/EC) 20 mg PO DAILY Qty: 30 3RF Rx Instructions: Take 1 tablet by mouth every day Continued multivitamin Tablet 1 tab PO DAILY diazepam [Valium] 5 mg tablet 5 mg PO DAILY PRN hydrochlorothiazide 12.5 mg tablet 12.5 mg PO DAILY PRN Excedrin Extra Strength 250-250-65 mg tablet 1 tab PO ONCE carvedilol 25 mg tablet 25 mg PO BID Rx Instructions: must administer with a meal/food potassium chloride 10 mEq Tablet Extended Release 10 meq PO PRN PRN Discharge Instructions Instructions: Benitez Esophagus (GEN) Additional Instructions: Chichi, we were able to complete your upper endoscopy today without any difficulty. You do have a short segment of Benitez's esophagus. It starts ab out 38 cm from your teeth, and extends down to about 40 cm, where the GE junction is. Like we talked about before hand, with short segment Benitez's, I did perform four-quadrant biopsies in order to test dysplasia or cancer. Similarly, as we discussed in the office, the mainstay of management for Benitez's esophagus involves the use of proton pump inhibitor therapy. I have placed a prescription for omeprazole. You should take 1 pill every day. Please let me know if you have any side effects of this medication. If that is the case, we could try some other types of medicines in the same family. When I have the results of the biopsies, I will be in touch with my other recommendations. 1. If tolerated, consume a soft, low fiber diet for 1-2 days. 2[address] Do not drive, drink alcohol, operate machinery, make critical decisions, or do activities that require coordination or balance for 24 hours. 3. You may experience a sore throat for 24 to 48 hours. You may use throat lozenges or gargle with warm salt water to relieve the discomfort. 4. Because air was put into your stomach during the procedure, you may experience some belching. 5. Go directly to the emergency room if you notice any of the following: Develop chills (warm to touch), or if you have a thermometer and your temperature is above 101 Difficulty breathing or difficultly swallowing Persistent vomiting Severe abdominal pain, other than gas cramps Severe chest pain Black, tarry stools Any bleeding ? exceeding one tablespoon 6. Call your physician if the site where your intravenous was started becomes red, swollen, painful, and warm to touch. 7. Your physician has reviewed your pre-procedure medications. Please continue to take those medications as previously ordered. You will be given specific information/education regarding any changes to your medications before leaving. Activity:: Activity as Tolerated Diet:: As Tolerated Discharge Orders Discharge Orders: Discharge Order (Routine); Ordered 07/27/22 Ordered By: Arturo Sage DS: Diagnosis Discharge Diagnosis (1) Barretts esophagus: Status: Acute
--- NOTE | 2022-07-27 21:24 | W.PM.ENDDOP ---
Date of service: 07/28/22 Time of Service: 12:47 Endoscopy Report DATE OF PROCEDURE: 07/28/22 PRE-OP DIAGNOSIS: Barrets Esophagus POST-OP DIAGNOSIS: same PROCEDURE: EGD with four-quadrant esophageal biopsies SURGEON: Arturo Sage ANESTHESIA TYPE: General:No Airway ESTIMATED BLOOD LOSS: 10 PATHOLOGY: other (GE junction biopsies) COMPLICATIONS: None DISPOSITION: same day INDICATIONS: Chichi is 77 years old with longstanding GERD. She has not been maintained on PPI. PROCEDURE START TIME: 12:24 PROCEDURE END TIME: 12:32 FINDINGS: Short segment Benitez's esophagus extending from 38 cm to 40 cm PROCEDURE DESCRIPTION: After the initiation of monitored anesthetic care, and with the assistance of a bite block, I advanced a standard gastroscope through the mouth past the hypopharynx and into the esophagus.? Under the direct vision of the scope, I advanced down the esophagus into the stomach.? Once I entered the stomach, I performed a brief inspection, followed by retroflexion towards the gastric cardia.? This appeared normal.? After that, I gently advanced the scope around the incisura angularis and examined the pylorus.? This also appeared normal.? Next, I advanced the scope through the pylorus into the duodenum.? The mucosa was pink and healthy appearing.? There were no abnormalities.? I was able to visualize bile draining into the duodenum through the ampulla Vater. ?Next, I began retracting the endoscope.? Again, I returned to the stomach which was carefully examined once again.? I then gently desufflated some of the stomach, and withdrew the endoscope into the distal esophagus. The GE junction measured 40 cm from the incisors. There was short segment Benitez's esophagus beginning at 38 cm from the incisors. I performed four-quadrant biopsies with cold forceps. There was minimal bleeding. ?Finally, I withdrew the scope along the length of the esophagus taking great care to examine the entirety of the mucosa.? I did not appreciate any abnormalities.
[2022-07-28 10:12] VITALS: BP 184/96; PULSE 70; RESP 18; TEMP 36.8; O2SAT 99
[2022-07-28] MEDS: Lactated Ringers 1,000 ML 80 ML IV (11:25)
[2022-07-28 11:32] VITALS: BMI 21.4
--- NOTE | 2022-07-28 12:30 | ESO_PTH ---
PATIENT: Chichi Kaur LOC: [facility] U#:[id number] AGE/SX: 77/F ROOM: RE07/28/[address]: Arturo Sage MD : 1945 BED: DIS: 07/28/2022 SPEC #: [id number] RECD: 07/28/22 12:58 STATUS: EVETTE REQ #: [id number] SONIA: 07/28/22 12:[address]: Arturo Sage DEPT: Surgical Specimen RECD BY: Savannah Abdi ENTERED: 07/28/22 12:58 SP TYPE: Eso OT DR: Cesar Klein Tissues: 1 - ESOPHAGUS BIOPSY Procedures: GROSS AND MICRO LEVEL 4 Comments: [id number]
[2022-07-28 12:40] VITALS: BP 118/76; PULSE 80; RESP 18; TEMP 36.4; O2SAT 93
[2022-07-28 13:08] VITALS: BP 139/75; PULSE 73; RESP 16; TEMP 36.5; O2SAT 95
--- NOTE | 2022-07-28 13:18 | W.ANESPOSTOP ---
Postoperative Evaluation Date, Time and Location Date Performed: 07/28/22 Time Performed: 13:19 Patient Location: Day Surgery Unit Vital Signs Most Recent Imported Vital Signs: Most Recent Vital Signs Temp Pulse Resp BP Pulse Ox 36.5 C 73 16 139/75 95 07/28/22 13:08 07/28/22 13:08 07/28/22 13:08 07/28/22 13:08 07/28/22 13:08 Most Recent Manually Entered Vital Signs: Adult Blood Pressure: 139/75 Heart Rate: 73 Respirations: 16 Oxygen Saturation (%): 95 Temperature (C): 36.5 C Pain Score (0-10 Scale): 0 Pain Score Most Recent Pain Score: Most Recent Pain Score Pain Level 0 07/28/22 13:08 Assessment Mental Status: Awake (Alert & Oriented to Patient Baseline) Airway and Respiratory Function: Patent airway with normal (patient baseline) respiratory exam Cardiovascular Function: Hemodynamically Stable Hydration Status: Adequately Hydrated Nausea & Vomiting: No Nausea or Vomiting Pain: Pt. Denies Any Pain Peripheral Nerve Block: Patient did not receive a nerve block
[2022-07-28 13:20] VITALS: BP 139/75; PULSE 73; RESP 16; TEMPC 36.5; O2SAT 95
== END 2022-07-28 13:49 | disposition home or self-care (01) ==
PROVIDERS: PCP Physician Assistant; Visit Provider Surgery
PROC: 0DJ68ZZ Inspection of Stomach, Via Natural or Artificial Opening Endoscopic (ICD-10-PCS; CPT 43235; principal; 2022-07-28 11:15)
DX: K22.70 Barrett's esophagus without dysplasia (principal); E78.5 Hyperlipidemia, unspecified; I10 Essential (primary) hypertension; K31.A0 Gastric intestinal metaplasia, unspecified
CPT/HCPCS: 43239; 88305; J2704

== ENCOUNTER → 2022-08-13 10:25 | Outpatient (BNVA) | payer MEDICARE, MEDICAID, SELFPAY | PROVIDERS: PCP Physician Assistant; Referring Provider Physician Assistant; Visit Provider Surgery | DX: Z48.815 Encounter for surgical aftercare following surgery on the digestive system (principal) | CPT/HCPCS: 99214 ==

== ENCOUNTER → 2022-08-28 13:42 | Outpatient (BNVA) | payer MEDICARE, MEDICAID, SELFPAY | PROVIDERS: PCP Physician Assistant; Referring Provider Physician Assistant; Visit Provider Surgery | DX: J02.9 Acute pharyngitis, unspecified (principal); Z98.890 Other specified postprocedural states | CPT/HCPCS: 99215 ==

== ENCOUNTER 2022-10-03 12:05 | Outpatient (CLI) | payer MEDICARE, MEDICAID, SELFPAY ==
--- NOTE | 2022-10-03 12:01 | DI.RAD_ITS ---
Exam(s) XR KNEE RT 3V AP,LAT,LEANN EXAM: XR KNEE RT 3V AP,LAT,LEANN CLINICAL HISTORY: right knee pain. TECHNIQUE: 2D digital imaging was performed. COMPARISON: CR XR KNEE LT 3V AP,LAT,LEANN from 10/03/2022 FINDINGS: 3 views No evidence of fracture. There is a moderate-sized joint effusion. There are degenerative changes, most evident in the lateral compartment with [id number] narrowing o f the lateral compartment as seen on the weight-bearing view, similar to the opposite side. There is relative preservation of height of the medial compartment. Moderate degenerative change in the suarez llofemoral compartment. No osseous lesions. Bone density normal. IMPRESSION: Degenerative changes, most evident in the lateral compartment. DATA REPOSITORY: RADIATION DOSE DELIVERED:
--- NOTE | 2022-10-03 12:02 | DI.RAD_ITS ---
Exam(s) XR KNEE LT 3V AP,LAT,LEANN EXAM: XR KNEE LT 3V AP,LAT,LEANN CLINICAL HISTORY: left knee pain. TECHNIQUE: 2D digital imaging was performed. COMPARISON: None FINDINGS: 3 views No evidence of fracture but there appears to be small joint effusion. No osseous lesions. There is [id number] narrowing of the lateral compartment as seen on the weight-bearing view. Mild valgus de formity. Relatively preserved height of the medial compartment milder degenerative changes at this l evel. Also some degenerative change noted in the patellofemoral compartment. Bone density normal. No osseous lesions. IMPRESSION: Degenerative changes, most evident in the lateral compartment. DATA REPOSITORY: RADIATION DOSE DELIVERED:
--- NOTE | 2022-10-03 12:03 | DI.RAD_ITS ---
Exam(s) XR ANKLE LT COMPLETE EXAM: XR ANKLE LT COMPLETE CLINICAL HISTORY: left ankle fracture. TECHNIQUE: 2D digital imaging was performed. COMPARISON: No exams were available for comparison FINDINGS: 3 views There is no oblique fracture of distal fibula with minimal displacement. No widening of the ankle mo rtise. Talar dome unremarkable. Medial and posterior malleoli appear unremarkable. No degenerative changes evident in the tibiotalar and subtalar joints. Base of the 5th metatarsal is intact. No osseous lesions. IMPRESSION: Minimally displaced fracture of distal fibula. Wet read. DATA REPOSITORY: RADIATION DOSE DELIVERED:
== END 2022-10-03 12:06 | disposition home or self-care (01) ==
LOC: DIORS 12:05
PROVIDERS: PCP Physician Assistant; Referring Provider Physician Assistant; Visit Provider Student in an Organized Health Care Education/Training Program
DX: X58.XXXA Exposure to other specified factors, initial encounter; M17.12 Unilateral primary osteoarthritis, left knee; M17.11 Unilateral primary osteoarthritis, right knee; S82.62XA Displaced fracture of lateral malleolus of left fibula, initial encounter for closed fracture
CPT/HCPCS: 73562; 99214; 73610

== ENCOUNTER 2022-10-31 11:07 | Outpatient (CLI) | payer MEDICARE, MEDICAID, SELFPAY ==
--- NOTE | 2022-10-31 11:57 | DI.RAD_ITS ---
Exam(s) XR ANKLE LT COMPLETE EXAM: XR ANKLE LT COMPLETE CLINICAL HISTORY: f/u L ANKLE FX TECHNIQUE: 2D digital imaging was performed. Three views. COMPARISON: CR XR ANKLE LT COMPLETE from 10/03/2022 FINDINGS: There has been no change in the alignment of the distal fibular fracture. The ankle mortise is not w idened. No new abnormalities. DATA REPOSITORY: RADIATION DOSE DELIVERED:
== END 2022-10-31 11:08 | disposition home or self-care (01) ==
LOC: DIORS 11:07
PROVIDERS: PCP Physician Assistant; Referring Provider Physician Assistant; Visit Provider Student in an Organized Health Care Education/Training Program
DX: S82.62XD Displaced fracture of lateral malleolus of left fibula, subsequent encounter for closed fracture with routine healing; X58.XXXD Exposure to other specified factors, subsequent encounter
CPT/HCPCS: 99213; 73610

== ENCOUNTER 2023-03-05 12:57 | Outpatient (REF) | payer MEDICARE, MEDICAID, SELFPAY ==
[2023-03-05 15:21] LABS: HCT 42.6 % (36.0-46.0); HGB 14.2 g/dL (11.2-15.7); MCH 30.3 pg (27.0-33.0); MCHC 33.3 % (32.0-36.0); MCV 91 fL (80-95); Platelet Count 278 10^3/uL (130-400); RBC 4.69 10^6/uL (3.93-5.22); RDW 12.1 % (11.7-14.6); RDW-SD 40.1 fL; WBC 5.93 10^3/uL (4.4-10.8)
[2023-03-05 15:48] LABS: Anion Gap 8.9 mmol/L (3-11); BUN 16 mg/dL (7-18); CO2 29.1 mmol/L (21.0-32.0); CREATININE 0.8 mg/dL (0.55-1.02); Calcium 10.4 mg/dL (8.5-10.1); Chloride 105 mmol/L (98-107); Estimated GFR 76.31 (mL/min/1.73m2); Glucose 103 mg/dL (74-106); Potassium 4.4 mmol/L (3.5-5.1); Sodium 143 mmol/L (136-145); TSH 2.11 uIU/mL (0.36-3.74)
== END 2023-03-05 12:58 | disposition home or self-care (01) ==
LOC: NCHCN 12:57
PROVIDERS: PCP Physician Assistant; Visit Provider Physician Assistant
DX: R53.83 Other fatigue (principal)
CPT/HCPCS: 80048; 85027; 84439; 84443

== ENCOUNTER 2023-05-04 16:33 | Outpatient (REF) | payer MEDICARE, MEDICAID, SELFPAY | END 2023-05-04 16:34 | disposition home or self-care (01) | LOC: LBN 16:33 | PROVIDERS: PCP Physician Assistant; Visit Provider Nurse Practitioner Family | DX: J02.9 Acute pharyngitis, unspecified (principal) | CPT/HCPCS: 87070 ==

== ENCOUNTER 2023-06-04 19:16 | Outpatient (REF) | payer MEDICARE, MEDICAID, SELFPAY | END 2023-06-04 19:17 | disposition home or self-care (01) | LOC: LBN 19:16 | PROVIDERS: PCP Physician Assistant; Visit Provider Family Medicine | DX: N39.0 Urinary tract infection, site not specified (principal) | CPT/HCPCS: 87077; 87086; 87186 ==

== ENCOUNTER 2023-09-03 17:05 | Outpatient (REF) | payer MEDICARE, MEDICAID, SELFPAY | END 2023-09-03 17:06 | disposition home or self-care (01) | LOC: NCHCN 17:05 | PROVIDERS: PCP Physician Assistant; Visit Provider Physician Assistant | DX: N39.0 Urinary tract infection, site not specified (principal) | CPT/HCPCS: 87086 ==

== ENCOUNTER → 2023-11-16 09:08 | Outpatient (BNVA) | payer MEDICARE, MEDICAID, SELFPAY | PROVIDERS: PCP Physician Assistant; Referring Provider Physician Assistant; Visit Provider Student in an Organized Health Care Education/Training Program | DX: M17.12 Unilateral primary osteoarthritis, left knee (principal); M17.11 Unilateral primary osteoarthritis, right knee | CPT/HCPCS: 99215 ==

== ENCOUNTER 2023-11-19 16:24 | Outpatient (REF) | payer MEDICARE, MEDICAID, SELFPAY ==
[2023-11-19 14:48] LABS: Abs Immature Grans 0.01 10^3/uL (0.0-0.06); Absolute Basophil Count 0.04 10^3/uL (0.0-0.2); Absolute Eosinophil Count 0.06 10^3/uL (0.0-0.7); Absolute Lymphocyte Count 1.92 10^3/uL (1.2-3.4); Absolute Monocyte Count 0.65 10^3/uL (0.1-0.8); Absolute Neutrophil Count 3.83 10^3/uL (1.2-6.7); Basophils % 0.6 %; Eosinophils % 0.9 %; HCT 43.9 % (36.0-46.0); HGB 14.4 g/dL (11.2-15.7); Immature Grans % 0.2 %; Lymphocytes % 29.5 %; MCH 29.9 pg (27.0-33.0); MCHC 32.8 % (32.0-36.0); MCV 91 fL (80-95); MPV 10.7 fL (8.0-11.0); Neutrophils % 58.8 %; Platelet Count 271 10^3/uL (130-400); RBC 4.81 10^6/uL (3.93-5.22); RDW 11.9 % (11.7-14.6); RDW-SD 40.4 fL; WBC 6.51 10^3/uL (4.4-10.8)
== END 2023-11-19 16:25 | disposition home or self-care (01) ==
LOC: NCHCN 16:24
PROVIDERS: PCP Physician Assistant; Visit Provider Physician Assistant
DX: R23.3 Spontaneous ecchymoses (principal)
CPT/HCPCS: 85025

== ENCOUNTER 2023-12-24 03:37 | Outpatient (CLI) | payer MEDICARE, MEDICAID, SELFPAY ==
[2023-12-24 13:06] LABS: HCT 45.1 % (36.0-46.0); MCH 30.2 pg (27.0-33.0); MCHC 33.3 % (32.0-36.0); MCV 91 fL (80-95); MPV 9.4 fL (8.0-11.0); Platelet Count 264 10^3/uL (130-400); RBC 4.96 10^6/uL (3.93-5.22); RDW 11.9 % (11.7-14.6); RDW-SD 40.2 fL; WBC 7.66 10^3/uL (4.4-10.8)
[2023-12-24 13:31] LABS: Anion Gap 6.9 mmol/L (3-11); BUN 22 mg/dL (7-18); CO2 31.1 mmol/L (21.0-32.0); CREATININE 0.9 mg/dL (0.55-1.02); Calcium 10.4 mg/dL (8.5-10.1); Chloride 106 mmol/L (98-107); Estimated GFR 65.84 (mL/min/1.73m2); Glucose 112 mg/dL (74-106); Potassium 4.9 mmol/L (3.5-5.1); Sodium 144 mmol/L (136-145)
== END 2023-12-24 03:38 | disposition home or self-care (01) ==
LOC: LBO 03:38
PROVIDERS: PCP Physician Assistant; Visit Provider Student in an Organized Health Care Education/Training Program
DX: M17.12 Unilateral primary osteoarthritis, left knee (principal); Z01.818 Encounter for other preprocedural examination
CPT/HCPCS: 80048; 85027; 99024; 77073

== ENCOUNTER 2023-12-24 15:28 | Outpatient (CLI) | payer MEDICARE, MEDICAID, SELFPAY ==
--- NOTE | 2023-12-24 11:30 | DI.RAD_ITS ---
Exam(s) XR STANDING ALIGNMENT EXAM: XR STANDING ALIGNMENT CLINICAL HISTORY: LEFT KNEE PAIN. TECHNIQUE: 2D digital imaging was performed. Standing AP views were performed from the pelvis throu gh the ankles. COMPARISON: CR XR KNEE LT 3V AP,LAT,LEANN from 10/03/2022 CR XR KNEE RT 3V AP,LAT,LEANN from 10/03/2022 FINDINGS: BONES: No acute fracture is present. No bony destructive lesion is seen. Degenerative changes and sc oliosis in the lumbar spine. Leg length discrepancy: Mild overall leg length discrepancy, with the right femoral head projecting 5 millimeters superior to the left.. JOINTS: Knees: Degenerative changes of both knees greater in the lateral femoral to tibial compartmen ts. The ankle joints are unremarkable. Hips: Mild right hip joint space narrowing. Left hip joint space is maintained. SOFT TISSUE: Normal. IMPRESSION: Advanced degenerative changes of both knees. Mild overall leg length discrepancy. DATA REPOSITORY: RADIATION DOSE DELIVERED:
== END 2023-12-24 15:29 | disposition home or self-care (01) ==
LOC: DIORS 15:30
PROVIDERS: PCP Physician Assistant; Visit Provider Physician Assistant
DX: M17.12 Unilateral primary osteoarthritis, left knee (principal); Z01.818 Encounter for other preprocedural examination
CPT/HCPCS: 77073

== ENCOUNTER 2024-01-06 05:57 | Day surgery (SDC) | payer MEDICARE, MEDICAID, SELFPAY ==
[2024-01-06] VITALS (21 sets, daily range): BP systolic 111–194; BP diastolic 59–94; PULSE 59–68; RESP 12–20; TEMP 35.7–36.6; O2SAT 93–97; BMI 21.2
--- NOTE | 2024-01-06 06:40 | W.ANESPRE ---
General Info Date of Service Date Performed: 01/06/24 Height: 5 ft 5 in Weight: 58.06 kg Body Mass Index (BMI): 21.2 Surgical Procedure: Operation Date: 01/06/24 07:40 Proposed Procedure Side Surgeon p Knee Total Arthroplasty Left Byron Santizo MD Meds Allergies and Home Medications Allergies Allergy/AdvReac Type Severity Reaction Status Date / Time aspartame Allergy Severe anaphylaxis Verified 01/06/24 06:19 phenylalanine Allergy Anaphylaxis Verified 01/06/24 06:19 tramadol AdvReac Intermediate Other (See Verified 01/06/24 06:19 Comment) Home Medication ?Medication ?Instructions ?Recorded hydrochlorothiazide 12.5 mg tablet 12.5 mg PO DAILY PRN 07/12/20 potassium chloride 10 mEq 10 meq PO PRN PRN 09/24/20 tablet,extended release carvedilol 25 mg tablet 25 mg PO BID 07/09/22 diazepam 5 mg tablet (Valium) 2.5 mg PO DAILY PRN 09/08/23 acetaminophen 500 mg tablet 1,000 mg (2 x 500 mg) PO TID #90 01/06/24 tabs aspirin 81 mg tablet,delayed 81 mg PO BID #60 tabs 01/06/24 release gabapentin 300 mg capsule 300 mg PO QHS #14 caps 01/06/24 oxycodone 5 mg tablet 5 mg PO Q4H PRN pain #20 tabs 01/06/24 Current Visit Medications: Current Medications Generic Name Dose Route Start Last Admin Trade Name Freq PRN Reason Stop Dose Admin Acetaminophen 1,000 mg 01/06/24 06:00 Acetaminophen 500 Mg Tab PO 01/06/24 18:00 PREOP [facility] Ringer's Solution 1,000 mls @ 80 mls/hr 01/06/24 06:00 IV 02/04/24 23:59 INFUSION RUTH Cefazolin Sodium/Dextrose 2 gm in 50 mls @ 100 mls/hr 01/06/24 06:00 Ancef Duplex IVPB 01/06/24 18:00 PREOP RUTH Tranexamic Acid 1,000 mg/ 110 mls @ 660 mls/hr 01/06/24 06:00 Sodium Chloride IVPB 01/06/24 16:00 PREOP [facility] IV Miscellaneous Supplies 1 each 01/06/24 06:00 Iv Access IV 02/04/24 23:59 DIRECTED RUTH Sodium Chloride 0 ml 01/06/24 06:00 Normal Saline Flush 10 Ml Syr IV 02/04/24 23:59 PRN PRN Sodium Chloride 0 ml 01/06/24 06:00 Normal Saline 10 Ml Vial IJ 02/04/24 23:59 DIRECTED PRN Sterile Water 0 ml 01/06/24 06:00 Water,Injection,Sterile 10 Ml Vial IJ 02/04/24 23:59 DIRECTED PRN PFSH Active Problems Active Problems: Problem Status Onset Code Arthritis of right knee Acute M17.11 Arthritis of left knee Acute M17.12 Strep pharyngitis Acute J02.0 Closed fracture of left lateral malleolus Acute 09/20/22 S82.62XA 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 Left knee DJD Chronic M17.12 Epigastric pain Acute R10.13 Diarrhea Acute R19.7 Weight loss Acute R63.4 Constipation Acute K59.00 Anxiety Chronic F41.9 Seborrheic keratoses Acute L82.1 Right knee pain Acute M25.561 Hiatal hernia Chronic K44.9 Right lower quadrant abdominal pain Acute R10.31 Essential hypertension Acute I10 Bilateral cataracts Acute H26.9 Irritable bowel syndrome with diarrhea Acute K58.0 Internal hemorrhoids Acute K64.8 Acute UTI Acute N39.0 Cholelithiasis Acute K80.20 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 Lesion of skin of nose Acute L98.9 Sore throat Acute J02.9 Hypertension Chronic I10 Hyperlipidemia Acute E78.5 Chronic cough Acute R05 Vaginal dryness Acute N89.8 Degeneration, intervertebral disc, cervical Acute M50.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.30 Cataract Chronic H26.9 Asthma Chronic J45.909 Migraine Chronic G43.909 History of tonsillectomy and adenoidectomy Acute Z98.890 Barretts esophagus Acute K22.70 Chronic daily headache Acute R51.9 Lip lesion Acute K13.0 Low back pain Acute M54.50 Cervicalgia Acute M54.2 Anxiety disorder Acute F41.9 Medical History Medical History Referred otalgia of right ear Sensation of fullness in both ears Asymmetrical sensorineural hearing loss Surgical History Surgical History History of esophagogastroduodenoscopy (EGD) (~07/28/22) H/O colonoscopy H/O endoscopy Hx of hysterectomy Tobacco Smoking/Tobacco Use Status: Never Alcohol Alcohol Intake: current Alcohol intake frequency: holidays/special occasions only Alcohol type: beer Substance Use Substance use: Never Substance use type: does not use Vital Signs and Lab Results Lab Results Blood Type / Crossmatch: No Data to Display Complete Blood Count: White Blood Count 7.66 10^3/uL (4.4-10.8) 12/24/23 13:02 Red Blood Count 4.96 10^6/uL (3.93-5.22) 12/24/23 13:02 Hemoglobin 15.0 g/dL (11.2-15.7) 12/24/23 13:02 Hematocrit 45.1 % (36.0-46.0) 12/24/23 13:02 Platelet Count 264 10^3/uL (130-400) 12/24/23 13:02 Complete Metabolic Panel: Sodium 144 mmol/L (136-145) 12/24/23 13:02 Potassium 4.9 mmol/L (3.5-5.1) 12/24/23 13:02 Chloride 106 mmol/L (98-107) 12/24/23 13:02 Carbon Dioxide 31.1 mmol/L (21.0-32.0) 12/24/23 13:02 BUN 22 mg/dL (7-18) H 12/24/23 13:02 Creatinine 0.9 mg/dL (0.55-1.02) 12/24/23 13:02 Est GFR (CKD-EPI 2020) 65.84 (mL/min/1.73m2) 12/24/23 13:02 Calcium 10.4 mg/dL (8.5-10.1) H 12/24/23 13:02 Glucose 112 mg/dL (74-106) H 12/24/23 13:02 Liver Function Panel: No Data to Display Coagulation Panel: No Data to Display Cardiac Panel: No Data to Display Arterial Blood Gas: No Data to Display Venous Blood Gas: No Data to Display Pancreas Panel: No Data to Display Thyroid Panel: No Data to Display Infectious Disease: No Data to Display Blood Cultures: No Data to Display Toxicology Panel: No Data to Display Anesthesia Assessment and Plan Anesthesia History Personal History: No History of Anesthesia Complications Family History: No Family History of Anesthesia Complications Exercise Tolerance Exercise Tolerance: Metabolic Equivalents>4 Pertinent Negatives Pertinent Negatives: No History of CVA/TIA Cardiac & Pulmonary Exam Cardiac Exam: Normal S1/S2 Heart Sounds Pulmonary Exam: Clear Bilateral Breath Sounds Implantable Cardiac Device Does patient have a Pacemaker or an ICD?: No Airway Exam Known Difficult Airway: No Mallampati Class: 3 Mouth Opening: Normal (> 3cm) Thyromental Distance: Greater than 3 cm Neck Range of Motion: Limited ROM and Known Cervical Instability or radiculopathy Neck Circumference: Normal Teeth Condition: Normal Dentition ASA Classification ASA Score: ASA 2 Emergency Case?: No NPO Status NPO Status: NPO Clears >2 hours, Solids >8 hours Anesthesia Plan Resuscitation Status: Full Code Anesthesia Technique: Spinal Anesthesia (some lumbar dextroscoliosis) Airway Planned: Natural Airway Pain Management: Surgeon and patient request nerve block Monitors Used: Standard Monitors Preoperative Comments:: 78 yo female for TKA. Sig PMHx: asthma, barretts, neck pain, headache, anxiety, HTN (carvedilol, HCTZ), never smoker, occ EtOH. Known cervicalgia with multiple level degenerative changes to C-spine.
[2024-01-06] MEDS: Acetaminophen 500 MG TAB 1000 MG PO (06:55)
--- NOTE | 2024-01-06 07:16 | W.PM.DSUDISC ---
Date of service: 01/06/24 Time of Service: 07:16 Discharge Plan Disposition Patient Disposition: Home Condition: Good Discharge Details Reason For Visit: L TKR Attending Provider: Byron Santizo Primary Care Provider: Cesar Klein Home Meds and New Rx's Prescriptions: New acetaminophen 500 mg tablet 1,000 mg PO TID Qty: 90 3RF aspirin 81 mg tablet,delayed release (DR/EC) 81 mg PO BID Qty: 60 0RF gabapentin 300 mg capsule 300 mg PO QHS Qty: 14 0RF oxycodone 5 mg tablet 5 mg PO Q4H MDD 6 tabs PRN (Reason: pain) Qty: 20 0RF Continued hydrochlorothiazide 12.5 mg tablet 12.5 mg PO DAILY PRN carvedilol 25 mg tablet 25 mg PO BID Rx Instructions: must administer with a meal/food diazepam [Valium] 5 mg tablet 2.5 mg PO DAILY PRN potassium chloride 10 mEq Tablet Extended Release 10 meq PO PRN PRN Discontinued Excedrin Extra Strength 250-250-65 mg tablet 1 tab PO ONCE Patient Comments: 1/2 tab PRN Discharge Instructions Additional Instructions: Total Knee Discharge Instructions Activity: The most important activity is to walk and to work on gentle motion (both flexion and extension). You should try to take short walks a few times a day. It is important that when resting you work on keeping the knee straight. Avoid putting a pillow behind the knee as this will encourage flexion. Work on range of motion exercises as provided by Physical Therapy. - Start outpatient physical therapy within 2 weeks. - You should wear the PABLO hose on both legs for 2 weeks. You may remove these at night. You may also use any compression sock in place of the PABLO hose. - Utilize [employer] to review exercises, see videos on exercises and obtain basic information pertaining to your surgery and your recovery. Dressing: Remove the Abhishek wrap by 2 days after your surgery and put on the PABLO stocking given to you from the hospital. Keep the surgical dressing (underneath the ABHISHEK wrap) in place for at least one week. After the first week it may be removed and replaced with light gauze and tape or nothing. The wound and dressing may get wet after 3 days but avoid soaking the dressing or otherwise it will need to be changed. Many people prefer covering the dressing with cling wrap (saran wrap) to minimize it from getting soaked. If it gets wet, just pat dry. If it starts to peel off then it will need to be changed. Medications: - You should take Tylenol as your primary pain control medication. - You have been prescribed a stronger pain medication Oxycodone for breakthrough pain, take as needed as prescribed. - You have been prescribed Gabapentin to take at night for restlessness and nerve pain. - You will be taking Aspirin 81mg twice a day for DVT prevention unless instructed otherwise. - If you have constipation you should take Colace or Miralax (both [id number]). It takes most people 3-4 days to have a bowel movement. Follow-up: 2 weeks If you have any acute concerns or questions, please do not hesitate to contact the office at [phone]. You may contact Dr. Santizo with any questions after hours through the hospital at [phone] or on his cell phone at [phone]. Referrals: Byron Santizo MD [ [facility] STAFF PHYSICIAN] - Equipment/Supplies: Walker Activity:: Activity as Tolerated Shower/Bathe:: 72 hours Diet:: As Tolerated Discharge Orders Discharge Orders: Discharge Order (Routine); Ordered 01/06/24 Ordered By: Darryl Swan DS: Diagnosis Discharge Diagnosis (1) Arthritis of left knee: Status: Acute
[2024-01-06] MEDS: Normal Saline 1,000 ML 30 ML IV (07:20)
[2024-01-06] MEDS: ceFAZolin 2 GM/50 ML BAG IVPB (08:07)
--- NOTE | 2024-01-06 08:28 | W.ANESNERVE ---
Nerve Block Single Injection Procedure Date and Time Date Performed: 01/06/24 Procedure Start: 07:38 Location Where Procedure Performed Procedure Location: Day Surgery Unit Reason Performed: Postoperative Analgesia Requesting Provider: Byron Santizo Timeout Performed Timeout Performed: Yes Monitoring Used ECG, Blood Pressure and SpO2 Sterility Sterility: Hand Hygiene, Surgical Cap, Surgical Mask, Sterile Gloves and Chlorhexidine Sedation Given During Procedure Sedation Given (Indicate Dose Given): No Sedation given Patient Mental Status Patient Mental Status: Awake Nerve Block 1st Nerve Block: Laterality: Left Block Type: Adductor Canal Ultrasound Image Saved?: Yes Needle / Catheter Used: 100mm SonoPlex II Local Anesthetic Bolus (Indicate Dose Given): Lidocaine used for local infiltration of skin, Injected in 3-5ml increments after negative blood aspiration and Bupivacaine 0.25% Dose:: 10 ml Additives (Indicate Dose Given): Normal Saline Ultrasound: Sterile probe cover and gel used Nerve Stimulator: Supplement to Ultrasound use and No twitch or parasthesia noted < 0.5 mA Paresthesia: None Procedure Tolerated: No Complications and Patient tolerated well Procedure Outcome: Successful Performed By: Iggy Tong
--- NOTE | 2024-01-06 10:09 | ROE_ITS ---
Operative Note Operative Note PRE-OP DIAGNOSIS: Left Knee Osteoarthritis POST-OP DIAGNOSIS: same PROCEDURE: Left Total Knee Replacement with Intraoperative Navigation SURGEON: Byron Santizo DAIRY MANAGEMENT SPECIALIST: Negar Swan ANESTHESIA TYPE: Spinal Refer to Anesthesia Record ESTIMATED BLOOD LOSS: 100 PATHOLOGY: none sent TOURNIQUET TIME: 0 COMPLICATIONS: None Patient was transported to: PACU Patient's condition: stable Implants: 1. Depuy Attune Cementless Cruciate Retaining Femoral Component, Size 5 2. Depuy Attune Cementless Fixed Bearing Tibial Component, Size 4 3. Depuy Attune 5x5mm CR/FB Poly 4. Depuy Attune Patellar Component, Size 35 Indications: I have seen Chichi in clinic for symptoms of LEFT knee arthritis, confirmed with radiographic findings. She has exhausted nonoperative methods and was having significant limitations in daily function and desired better function and less pain. I discussed the technical details of a knee replacement. I explained the risks of the procedure to include, but not limited to, bleeding, infection, pain, stiffness, fracture, damage to nerves and vessels, damage to muscles and tendons, loosening, need for repeat procedure, blood clot and cardiopulmonary demise. Despite these risks, Chichi elected to proceed. Findings: There was significant signs of arthritis throughout the knee. Procedure Description: Chichi was greeted in the preoperative holding area where the correct side was identified and marked. The consent was reviewed with the patient and signed. The history and physical was updated. All questions were answered. Preoperative mediacations were administered: Acetaminophen 1000mg, Celebrex 400mg, and Gabapentin 300mg. An adductor canal block was then administered by the anesthesia team in the DSU. She was taken back to the operating room. A spinal anesthestic was then administered. The patient was placed into the supine position on the operating room table. Posts were placed for positioning during the procedure. All bony prominences were well padded. Prophylactic antibiotics in the form of Cefazolin were administered. 1g of Tranxemic Acid was given intravenously within 30 minutes of incision. The left leg was then prepped with Chloraprep and draped in a standard fashion with impervious stockinette. A second prep with Chloraprep was performed prior to application of Iodine impregnated skin protection. A timeout to confirm correct identity, side and site, procedure, allergies, anesthesia, and medical concerns was performed. With the knee in some flexion, a midline incision was made overlying the knee. Full thickness skin flaps were raised once the extensor mechanism was encountered. These were raised medially and laterally. Any bleeding was controlled with electrocautery. Once the extensor mechanism was fully exposed, a medial parapatellar arthrotomy was performed in a flexed position. All bleeding from the arthrotomy and the geniculate arteries was coagulated. A medial subperiosteal peel was performed with electrocautery to the midcoronal plane. The fat pad was removed while keeping the patellar tendon protected. The anterior distal femur synovium was removed for later visualization. The ACL and PCL were resected and the anterior horn of the lateral meniscus was transected. The knee was then flexed with the patella everted. Large osteophytes from the tibia were removed. Large osteophytes from the femur were removed. There was some hypoplasia of the lateral femoral condyle and any remnant cartilage of the medial femoral condyle was removed for appropriate thickness. A single starting pin was then placed 1cm anterior to the PCL insertion and the notch in the direction of the femoral head. The OrthoAlign device was applied over the pin. It was oriented to be in line with the epicondylar axis and the trochlear groove. It was then pinned into place. The navigation computer was then turned on and calibrated. The distal femur cut was set at 0 degrees varus and 3.5 degrees flexion. The distal femur cutting guide then was positioned for a 9mm cut. The distal femur was cut with an oscillating saw while protecting the soft tissues. The tibia was then addressed. The OrthoAlign device was placed over the tibial tubercle and medial tibia and secured into position. Once again, OrthoAlign was calibrated and then set for a 1 degree varus cut and 6 degrees of posterior slope. With this locked into position, the cut thickness stylus was used to assess cut thickness. The latera side, most involved side, was set for a 4mm cut. This was then held in position and pinned into place with 2 additional pins and a cross pin for stability. The medial and lateral collateral ligaments were protected and the cut was performed. With this completed, it was assessed and noted to be of appropriate dimensions. The guide and OrthoAlign was removed. A spacer block was inserted and the knee was brought into extension to ensure enough space was present. . The Orthoalign gap balancing device was then placed in extension. This was used to ensure that the ligaments were properly balanced with up to 2 to 3 mm laxity laterally compared medially. The extension gap was measured as 16mm. The knee was then brought into 90 degrees of flexion and the ligament locator specialist was once again placed. Under the same amount of force the flexion gap was measured. The Attune specific jig was placed and the flexion gap was made to match the extension gap. The femur was then sized as a size 5. The 4-in-1 cutting guide was the placed. An jahaira wing was used to confirm appropriate position of the anterior cut to avoid notching. This cutting guide was ensured to be flush on the cut surface and then pinned into place with headed pins. While protecting the soft tissues, quad tendon, and collateral ligaments, the anterior and posterior cuts were performed with a saw. The central two pins were removed and the posterior and anterior chamfers were cut next. The notch-cutting guide was placed. This was pinned to lateralize the femoral component as much as possible while keeping it flush on the cut surface. This was then pinned into position. A saw was used to make the notch cut. A rasp smoothed the cut surfaces. The medial and lateral menisci were removed. A trial femoral component was then inserted, impacted down to the cut surfaces, and the lug holes were drilled. A provisional trial tibial component was placed and the knee was brought through range of motion. There was noted to be excellent extension and flexion. There was no significant instability. The pat janae was tracking without thumbs. A size 5mm polyethylene component provided the best range of motion and stability with less than 2mm gapping with medial and lateral stress and full extension without significant hyperextension. The tibial cut surface was fully exposed. The tibia was then sized as a 4. The tibia had been previously marked during trialing to correspond to the center of the tibial component to help with rotation. The trial was aligned to this negar, approximately rotated to the medial 1/3rd of the tibial tubercle. The trial was pinned into place. The tibia was prepared with a reamer and a keel punch and lug holes. The knee was then brought into extension and the patella was measured as 22mm. Using the patellar clamp and cut guide, this was resected to a flat surface with at least 13mm of thickness remaining. The size 35 patella fit the best. This was oriented and then clamped into position. The lugs were drilled. The trial components were removed. The final components were opened on the back table. The periosteal and capsular tissues, especially posteriorly, around the knee were then systematically injected with a periarticular cocktail consisting of 246mg of Ropivacaine, 0.5mg of Epinephrine, 0.08mg of Clonidine, and 30mg of Ketorolac, diluted to 100cc. On the back table, with the implants opened, the cement was mixed. One batch of high viscosity cement was prepared with vacuum assistance. After the cement was ready a small amount was placed on the cut surface of the patella and the patellar button was clamped into position and held. While the cement was hardening, the cementless knee components were placed. Starting with the tibial component, the tibia was subluxed anteriorly and the lug holes of the component were lined up. The tibia was then impacted with an impactor and mallet until the tibial component was in contact with the tibia. Then, the femoral component was inserted. The lug holes were aligned and the component was impacted into position. The final polyethylene component was inserted. The knee was irrigated with Surgiphor Betadine solution. This was allowed to sit in the knee for 3 minutes and then it was thoroughly irrigated out with saline. After the cement had finally cured, approximately 15min, the clamp was removed from the patella and the knee was taken through range of motion. The patella was tracking with a no-thumbs technique. The capsule was then reapproximated with a No. 1 Vicryl at multiple locations. The capsule was finally closed with a No. 2 Stratafix, barbed suture. Deep t issues were then reapproximated with 0 Vicryl and 2-0 Vicryl. The skin was closed with a running 3-0 Monocryl in a subcuticular fashion. This was reinforced with skin glue. A Mepilex silver dressing was applied along with a [id number] HENRIETTA wrap. A CryoCuff was applied. Chichi was transferred to the hospital bed without difficulty an suffering no apparent complication. Chichi has a good prognosis. Physical therapy will start today and without restrictions, weight-bearing as tolerated. Aspirin 81mg BID will be used for DVT prophylaxis. Date of Procedure: 01/06/24
--- NOTE | 2024-01-06 11:18 | W.ANESPOSTOP ---
Postoperative Evaluation Date, Time and Location Date Performed: 01/06/24 Time Performed: 10:56 Patient Location: Day Surgery Unit Vital Signs Most Recent Imported Vital Signs: Most Recent Vital Signs Temp Pulse Resp BP Pulse Ox 36.5 C 59 L 17 142/75 H 96 01/06/24 10:30 01/06/24 10:30 01/06/24 10:30 01/06/24 10:30 01/06/24 10:30 Pain Score Most Recent Pain Score: Most Recent Pain Score Pain Level 2 01/06/24 10:30 Assessment Mental Status: Awake (Alert & Oriented to Patient Baseline) Airway and Respiratory Function: Patent airway with normal (patient baseline) respiratory exam Cardiovascular Function: Hemodynamically Stable Hydration Status: Adequately Hydrated Nausea & Vomiting: No Nausea or Vomiting Pain: Pain is tolerable per patient Peripheral Nerve Block: Regional nerve block not resolved at time of post operative discharge
--- NOTE | 2024-01-06 12:35 | PT.INIE ---
PT Notes Visit Reasons: L TKR Physical Therapy Day Surgery Initial Evaluation Date: 01/06/2024 Referring Doctor: Dr. Santizo PT Orders: PT CONSULT: Status post Ortho surgery Precautions: WBAT left LE, TEDS BLE x 2 weeks Patient Profile/Admitting Diagnosis: Patient is 78-year-old female presenting status post elective left TKA by Dr. Santizo on 01/06/2024 under spinal anesthesia. Postop uncomplicated PMHX: DJD B knee , arthritis right knee, closed fracture of left lateral malleolus 09/2022, anxiety, seborrheic keratosis, hiatal hernia, essential HTN, B cataracts, IBS with diarrhea, internal hemorrhoids, cholelithiasis, hyperlipidemia, degenerative intervertebral disc, cervical spine, asthma, migraines, Benitez's esophagitis, low back pain, cervicalgia Social History/Home Situation: Patient resides in a two-story home with 2 steps with rail to enter. Flight of stairs with rail to second floor. Patient reports she will stay on first floor until she feels comfortable performing the stairs. Patient independent ADLs, IADLs, cooking, housecleaning, shopping. Patient reports she uses axillary crutches currently on stairs to enter home and then has her FWW inside the doorway for use within home. Equipment Owned/DME: FWW, axillary crutches Subjective: Patient reports she is feeling well and motivated to return home. She states it is good to be able to move/bend her knee. Objective: General Observation: Patient presents semireclined Cryo/Cuff to left knee. Patient agreeable to participate in evaluation Mental Status: Alert and oriented x 4 Pain: Left knee 2/10 ROM: Right Upper Extremity: WNL Left Upper Extremity: WNL Right Lower Extremity: WNL Left Lower Extremity: WNL except knee 5-93 AROM Strength: Right Upper Extremity:5/5 Left Upper Extremity: 5/5 Right Lower Extremity: 5/5 Left Lower Extremity: Hip flexion:3 - /5; hip abduction: 3 /5; hip extension: 3 /5; knee extension: 3 /5; knee flexion: 2+ /5 ankle DF: 3 /5 ; ankle PF: 3 /5; patient demonstrates strong quad set and no lag for straight leg raise within shortened range of motion. Sensation: Intact Bed Mobility/Transfers: Supine to sit independent Sit to stand Independent Stand to sit Independent Bed to chair independent with FWW Gait: amb with FWW supervision 200 feet demonstrating decreased left knee flexion during swing phase, circumduction to advance LLE, ER of LLE at weight acceptance absent heel strike on left, early heel off Stairs: 2 steps with rail and crutch Supervision step to pattern Balance: Static Sitting: Normal Dynamic Sitting: Good + Static Standing: Good + Dynamic Standing: Good Special Tests: Mobility Limitations Standardized Measure [facility] 6 clicks Basic Mobility Inpatient Short Form: Raw Score: 23 CMS Score: 11.20% Informed Consent/Education: Patient instructed in purpose of PT consult. Packet containing TKA exercise protocol has been given to patient. Education and training on initial set of exercises that can be done at home have been completed with patient. Assessment: Patient is 78-year-old female presenting with limitations of left knee with minimal pain at this time. Patient presents with clinical signs and symptoms consistent with current/admitting diagnoses that have resulted to mobility limitations, gait instability, generalized weakness, and impairment of motor control as demonstrated by the following impairment level findings: 1. Decreased strength to left knee major muscle groups 2. Impaired standing balance 3. Limitation of joint range of motion in left knee Impairments are contributing to the following functional limitations: 1. Inability to safely ambulate without assistive device 2. Increase completion time for mobility ADL performance 3. Increased fall risk 4. Difficulty with managing steps alone safely Patient is assessed as a low complexity based on the following: History: 78-year-old female with impairment level findings, functional limitations, and past medical history as indicated above Examination: Demonstrable impairment in strength, balance, and mobility level with underlying impairments and functional limitations as documented above Presentation: stable Decision Making: low Goals: N/A. Plan of Care/Treatment Plan: N/A. DISCHARGE RECOMMENDATIONS: Home ,with Outpatient PT as scheduled TREATMENT CODE/TIME: 59672 x 1 unit, 32445 x 1 unit/ [id number] Thank you for the opportunity to participate in the care of this patient. Soraya Chan,PT Please sign an return this page within 30 days if you agree with the above POC. Thank you! [facility]
== END 2024-01-06 13:15 | disposition home or self-care (01) ==
PROVIDERS: PCP Physician Assistant; Visit Provider Student in an Organized Health Care Education/Training Program
PROC: (CPT 27447; principal; 2024-01-06 07:30)
DX: M17.12 Unilateral primary osteoarthritis, left knee (principal); F41.9 Anxiety disorder, unspecified; I10 Essential (primary) hypertension; K44.9 Diaphragmatic hernia without obstruction or gangrene; E78.5 Hyperlipidemia, unspecified; J45.909 Unspecified asthma, uncomplicated; R05.3 Chronic cough; G89.18 Other acute postprocedural pain
CPT/HCPCS: 20985; 27447; 64447; 97161; 97530; C1776; J0665; J0690; J2003; J2371; J2401; J2405; J2704; J3475

== ENCOUNTER 2024-01-21 15:52 | Outpatient (CLI) | payer MEDICARE, MEDICAID, SELFPAY ==
--- NOTE | 2024-01-21 10:00 | DI.RAD_ITS ---
Exam(s) XR KNEE LT 1V XR STANDING ALIGNMENT EXAM: XR STANDING ALIGNMENT and XR knee LT 1 V CLINICAL HISTORY: 1ST POST OP L TKA. TECHNIQUE: 2D digital imaging was performed. Five images were obtained. COMPARISON: CR XR KNEE LT 3V AP,LAT,LEANN from 10/03/2022 CR XR STANDING ALIGNMENT from 12/24/2023 FINDINGS: BONES: There is a right convex lumbar scoliosis. The hips are well maintained. The patient is now s tatus post left total knee arthroplasty. The orthopedic hardware appears in good position. No suspi cious lucencies are seen about the hardware. There are degenerative changes seen in the right knee p redominantly in the lateral femoral tibial joint. Portions of the right lower extremity are obscured . The ankles are well maintained.There is no significant leg length discrepancy. SOFT TISSUE: Normal. IMPRESSION: 1. Unremarkable left total knee arthroplasty. 2. Degenerative changes seen in the right knee. DATA REPOSITORY: RADIATION DOSE DELIVERED:
== END 2024-01-21 15:53 | disposition home or self-care (01) ==
LOC: DIORS 15:52
PROVIDERS: PCP Physician Assistant; Referring Provider Physician Assistant; Visit Provider Student in an Organized Health Care Education/Training Program
DX: Z96.652 Presence of left artificial knee joint (principal); Z47.1 Aftercare following joint replacement surgery
CPT/HCPCS: 99024; 73560; 77073

== ENCOUNTER 2024-02-10 21:07 | Emergency (ER) | payer MEDICARE, MEDICAID, SELFPAY ==
[2024-02-10 21:10] VITALS: BP 170/80; PULSE 74; RESP 16; TEMP 36.6; O2SAT 98
--- NOTE | 2024-02-10 21:15 | ED.GENADUL_ITS ---
Discharge Plan Disposition Patient Disposition: Home Condition: Good Discharge Details Clinical Impression: Abdominal pain Primary Care Provider: Cesar Klein ED Provider: Reese Teran [facility] and New Rx's Prescriptions: Continued hydrochlorothiazide 12.5 mg tablet 12.5 mg PO DAILY PRN carvedilol 25 mg tablet 25 mg PO BID Rx Instructions: must administer with a meal/food diazepam [Valium] 5 mg tablet 2.5 mg PO DAILY PRN potassium chloride 10 mEq Tablet Extended Release 10 meq PO PRN PRN Discharge Instructions Instructions: Abdominal Pain, Adult ED Additional Instructions: You were seen in the ED for abdominal pain. Your exam, labs, CT imaging are all reassuring. Recommend bland diet over the next day or 2. Follow-up with primary care next week. Return to ED for worsening abdominal pain, persistent vomiting, bloody diarrhea, fever, other concerns. Referrals: Cesar Klein [Primary Care Provider] - [facility] General Mode of arrival: ambulatory . Date/Time Provider Initiated Documentation: 02/10/24 21:08 . Limitations to Documentation: no limitations . Information obtained by: patient and RN notes reviewed . HPI Narrative: Patient presents to ED with generalized abdominal pain that began this morning and has been persistent throughout the day. She has no vomiting or diarrhea. She had been on oxycodone for a recent total knee replacement but has been off that for little over a week now. During the time that she was taking it she noted hard stools. Reports that stool is softer now and she does not feel constipated. Did have decreased appetite today. Has not had any fever. Denies any urinary symptoms. Does have a known history of diverticulosis. Because of persistent pain presents to ED this evening for evaluation. Related Data Home Medications ?Medication ?Instructions ?Recorded ?Confirmed hydrochlorothiazide 12.5 mg tablet 12.5 mg PO DAILY PRN 07/12/20 02/10/24 potassium chloride 10 mEq 10 meq PO PRN PRN 09/24/20 02/10/24 tablet,extended release carvedilol 25 mg tablet 25 mg PO BID 07/09/22 02/10/24 diazepam 5 mg tablet (Valium) 2.5 mg PO DAILY PRN 09/08/23 02/10/24 Allergies Allergy/AdvReac Type Severity Reaction Status Date / Time aspartame Allergy Severe anaphylaxis Verified 02/10/24 21:15 phenylalanine Allergy Anaphylaxis Verified 02/10/24 21:15 tramadol AdvReac Intermediate Other (See Verified 02/10/24 21:15 Comment) General Stated Complaint: Abd Prob SHOBHA: 3 Review of Systems Narrative: Per HPI Exam Narrative Exam Narrative: Const: WDWN elderly female in NAD. VS per triage. HEENT: NC/AT. Normal facial exam. Neck: Supple. Trachea midline. Lungs: Normal respiratory effort. Lungs are clear. Cor: RRR without murmur. Good radial pulses. GI: Soft/ND. Mildly tender in the upper superpubic abdominal area. No guarding or rebound. Back: No CVAT. Neuro: A+O x 3. Normal speech, mentation, gait. Cranial nerves II - XII grossly intact. No gross motor or sensory deficit. Course Vital Signs Vital signs: Vital Signs Temperature 97.9 F 02/10/24 21:10 Pulse 74 02/10/24 21:10 Respiratory Rate 16 02/10/24 21:10 Blood Pressure 170/80 H 02/10/24 21:10 Pulse Oximetry 98 02/10/24 21:10 Temperature 97.9 F 02/10/24 21:10 Pulse 74 02/10/24 21:10 Respiratory Rate 16 02/10/24 21:10 Blood Pressure 170/80 H 02/10/24 21:10 Pulse Oximetry 98 02/10/24 21:10 Oxygen Delivery Method Room Air 02/10/24 21:10 Oxygen Flow Rate 0 02/10/24 21:10 Pain Level 5 02/10/24 21:10 Medical Decision Making Patient presenting to ED with generalized abdominal pain that localizes to the upper suprapubic area and left lower quadrant on exam here. She has no guarding or rebound. She is not febrile. Otherwise looks well. Consider diverticulitis, constipation. Less likely UTI. Status post hysterectomy in the past. IV established and laboratory studies ordered. Patient declines anything for pain. CT of the abdomen pelvis ordered initially with IV contrast but patient declined and wanted it without. Patient's laboratory studies with normal white count and hemoglobin. Chemistries and kidney function normal. Liver function and lipase normal. Urinalysis negative for any evidence of infection. Preliminary read of CT per radiology with questionable mild right hydronephrosis, no evidence of obstruction. No evidence of diverticulitis or other acute abdominal pathology. Discussed findings with patient. Will plan discharge home to follow-up with primary care next week. Return precautions provided. Lab Data Lab results reviewed: Yes I reviewed the patient's lab results. Lab results narrative: See MDM PFSH All Active Problems Asymmetrical sensorineural hearing loss (Acute) Abdominal pain (Acute) Arthritis of right knee (Acute) Closed fracture of left lateral malleolus (Acute 09/20/22) Left knee DJD (Chronic) Anxiety (Chronic) Seborrheic keratoses (Acute) Hiatal hernia (Chronic) Irritable bowel syndrome with diarrhea (Acute) Internal hemorrhoids (Acute) Cholelithiasis (Acute) Ear anomaly (Acute) Lesion of skin of nose (Acute) Chronic cough (Acute) Vaginal dryness (Acute) Degeneration, intervertebral disc, cervical (Acute) Colonic diverticular disease (Acute) Asthma (Chronic) Migraine (Chronic) Chronic daily headache (Acute) Lip lesion (Acute) Low back pain (Acute) Cervicalgia (Acute) Anxiety disorder (Acute) Medical History Barretts esophagus Hyperlipidemia Bilateral cataracts Essential hypertension Surgical History History of tonsillectomy and adenoidectomy History of total left knee replacement (01/06/24) History of esophagogastroduodenoscopy (EGD) (~07/28/22) H/O colonoscopy H/O endoscopy Hx of hysterectomy Social History Smoking/Tobacco Use Status: Never Smoking risk assessment performed?: Yes Alcohol Intake: current Alcohol Intake frequency: holidays/special occasions only Alcohol type: beer Drug use: Never Substance use type: does not use Housing: house Current gender identity: female Do you feel safe at home: Yes Do you feel safe in your relationship?: Yes
--- NOTE | 2024-02-10 21:34 | DI.CT_ITS ---
Exam(s) CT ABDOMEN PELVIS WO EXAM: CT ABDOMEN PELVIS WO CLINICAL HISTORY: LLQ pain. TECHNIQUE: Imaging Protocol: Axial computed tomography images with coronal and sagittal reformatted images were created and reviewed. Oral: no COMPARISON: US US ABDOMEN LIMITED from 06/26/2020 FINDINGS: Lung Bases: No acute findings. Liver: Normal density. No suspicious mass. Gallbladder and biliary tract: No radiodense calculus. No gallbladder wall thickening. A few smal l gallstones were demonstrated on prior ultrasound. Stable mild prominence of common bile duct. No common duct stones are visible. Pancreas: Normal density. No abnormal calcifications or inflammatory process. Spleen: Normal. Kidneys: Normal size, contour and axis. No radiodense stones. No obstructive uropathy. No suspicious masses seen. Small renal cysts. Adrenal glands: No masses seen. Lymph nodes: Within normal limits. Vasculature: Abdominal aorta non-dilated. Soft tissues: Unremarkable. Bladder: No wall thickening. No mass or calculi. Bowel: No obstruction or bowel wall thickening. Diverticulosis. Appendix normal. Peritoneal cavity: No ascites. No focal collection. No mesenteric inflammatory response. Reproductive organs: Hysterectomy. Bones: Degenerative changes and scoliosis. IMPRESSION: No acute abnormality in the abdomen or pelvis. RADIATION DOSE DELIVERED: 354.57mGy.cm Total DLP DATA REPOSITORY: All CT scans at this facility are submitted to the National Radiology Data Registry (NRDR) Dose Index Registry (DIR) with the [employer] (ACR). RADIATION OPTIMIZATION: All CT scans at this facility use at least one of these dose optimization te chniques: automated exposure control; mA and/or kV adjustment per patient size (includes targeted exa ms where dose is matched to clinical indication); or iterative reconstruction.
[2024-02-10 22:07] LABS: Abs Immature Grans 0.02 10^3/uL (0.0-0.06); Absolute Basophil Count 0.04 10^3/uL (0.0-0.2); Absolute Eosinophil Count 0.12 10^3/uL (0.0-0.7); Absolute Lymphocyte Count 1.99 10^3/uL (1.2-3.4); Absolute Monocyte Count 0.68 10^3/uL (0.1-0.8); Absolute Neutrophil Count 4.18 10^3/uL (1.2-6.7); Basophils % 0.6 %; Eosinophils % 1.7 %; HCT 38.6 % (36.0-46.0); HGB 12.6 g/dL (11.2-15.7); Immature Grans % 0.3 %; Lymphocytes % 28.3 %; MCH 30.3 pg (27.0-33.0); MCHC 32.6 % (32.0-36.0); MCV 93 fL (80-95); MPV 9.6 fL (8.0-11.0); Monocytes % 9.7 %; Neutrophils % 59.4 %; Platelet Count 273 10^3/uL (130-400); RBC 4.16 10^6/uL (3.93-5.22); RDW 12.2 % (11.7-14.6); RDW-SD 42.3 fL; WBC 7.03 10^3/uL (4.4-10.8)
[2024-02-10 22:09] LABS: Bilirubin Negative (Negative); Blood Negative (Negative); Clarity Clear (Clear); Glucose Negative (Negative); Ketones Negative (Negative); Leukocyte Esterase Trace (Negative); Nitrite Negative (Negative); Specific Gravity >= 1.030 (1.005-1.025); Urobilinogen 0.2 mg/dL (Up to 0.2); pH 5.5 (5-8)
[2024-02-10] MEDS: ACETAMINOPHEN 1,000 MG/100 ML BAG 400 MG IVPB (22:10)
[2024-02-10 22:16] LABS: Lipase 65 U/L (<78)
[2024-02-10 22:18] LABS: Bacteria Rare HPF (Negative); Crystals Mod Calcium Oxalate HPF (Negative); Epithelial Cells Rare HPF (Negative); Other Cells Rare Transitional (Negative); RBC 0-2 HPF (0-2); WBC 0-2 HPF (0-5)
[2024-02-10 22:19] LABS: C & S Indicated? No; Casts 0-2 Hyaline LPF (Negative); Mucus Moderate (Negative)
[2024-02-10 22:21] LABS: ALT 19 U/L (14-59); AST 16 U/L (15-37); Albumin 4.2 g/dL (3.4-5.0); Alkaline Phosphatase 68 U/L (46-116); Anion Gap 7.4 mmol/L (3-11); BUN 18 mg/dL (7-18); Bilirubin, Total 0.32 mg/dL (0.2-1.0); CO2 29.6 mmol/L (21.0-32.0); CREATININE 0.9 mg/dL (0.55-1.02); Chloride 105 mmol/L (98-107); Estimated GFR 65.84 (mL/min/1.73m2); Glucose 112 mg/dL (74-106); Sodium 142 mmol/L (136-145); Total Protein 7.3 g/dL (6.4-8.2)
[2024-02-10 22:25] LABS: Calcium 10.4 mg/dL (8.5-10.1)
--- NOTE | 2024-02-10 23:09 | DI.VRAD_ITS ---
PROCEDURE INFORMATION: Exam: CT Abdomen And Pelvis Without Contrast Exam date and time: 02/10/2024 22:39 Age: 78 years old Clinical indication: Other: Llq pain TECHNIQUE: Imaging protocol: Computed tomography of the abdomen and pelvis without contrast. COMPARISON: US ABDOMEN LIMITED 06/26/2020 10:51 FINDINGS: Pleural spaces: Sliver of bilateral pleural fluid suspected. Liver: No mass on noncontrast imaging. Gallbladder and biliary ducts: The CBD is likely upper limits of normal for age. Gallbladder appears partially contracted. No calcified stones. Pancreas: No ductal dilation. No mass on noncontrast imaging. Spleen: No splenomegaly or suspicious lesions. Adrenal glands: No suspicious mass on noncontrast imaging. Kidneys and ureters: Benign-appearing renal cyst(s) and/or probable cyst(s). Suspected minimal right hydronephrosis, with no obstructing stones. No left hydronephrosis. No left nephrolithiasis. Stomach and bowel: Colonic diverticulosis without diverticulitis. No gross pathology in the small bowel without IV contrast. Appendix: No evidence of appendicitis. Intraperitoneal space: No free air. No significant fluid collection. Vasculature: No abdominal aortic aneurysm. Lymph nodes: No significantly enlarged lymph nodes on noncontrast imaging. Urinary bladder: The urinary bladder is distended. No urinary bladder wall thickening. Reproductive: Hysterectomy versus diminutive postmenopausal uterus. Please correlate with the surgical history. Bones/joints: Moderate lumbar dextroscoliosis. The bones are demineralized. Degenerative changes in the spine. No acute fracture or subluxation. Soft tissues: No suspicious lesions. Other findings: Motion artifact in the abdomen. IMPRESSION: 1. Suspected minimal right hydronephrosis, with no obstructing stones. 2. Incidental findings as described. Dictated and Authenticated by: Rina Hyde MD. Ordering:SCARLET Leigh MD
[2024-02-10 23:33] VITALS: BP 192/91; PULSE 75; RESP 18; TEMP 36.5; O2SAT 100
== END 2024-02-10 23:33 | disposition home or self-care (01) ==
PROVIDERS: Emergency Provider Emergency Medicine; PCP Physician Assistant
DX: R10.32 Left lower quadrant pain (principal); I10 Essential (primary) hypertension; E78.5 Hyperlipidemia, unspecified
CPT/HCPCS: 36415; 80053; 83690; 96374; 99284; 74176; 81003; 81015; 85025; J0131

== ENCOUNTER → 2024-02-18 10:11 | Outpatient (BNVA) | payer MEDICARE, MEDICAID, SELFPAY | PROVIDERS: PCP Physician Assistant; Visit Provider Student in an Organized Health Care Education/Training Program | DX: Z47.1 Aftercare following joint replacement surgery (principal); Z96.652 Presence of left artificial knee joint | CPT/HCPCS: 99024 ==

== ENCOUNTER → 2024-03-17 13:29 | Outpatient (BNVA) | payer MEDICARE, MEDICAID, SELFPAY | PROVIDERS: PCP Physician Assistant; Referring Provider Physician Assistant; Visit Provider Physician Assistant | DX: Z47.1 Aftercare following joint replacement surgery (principal); Z96.652 Presence of left artificial knee joint | CPT/HCPCS: 99024 ==

== ENCOUNTER 2024-04-20 16:48 | Outpatient (REF) | payer MEDICARE, MEDICAID, SELFPAY ==
[2024-04-20 15:54] LABS: Abs Immature Grans 0.01 10^3/uL (0.0-0.06); Absolute Basophil Count 0.06 10^3/uL (0.0-0.2); Absolute Eosinophil Count 0.32 10^3/uL (0.0-0.7); Absolute Monocyte Count 0.54 10^3/uL (0.1-0.8); Absolute Neutrophil Count 4.28 10^3/uL (1.2-6.7); Basophils % 0.8 %; Eosinophils % 4.4 %; HCT 41.9 % (36.0-46.0); HGB 13.7 g/dL (11.2-15.7); Immature Grans % 0.1 %; Lymphocytes % 28.7 %; MCH 30.1 pg (27.0-33.0); MCHC 32.7 % (32.0-36.0); MCV 92 fL (80-95); MPV 10.3 fL (8.0-11.0); Monocytes % 7.4 %; Neutrophils % 58.6 %; Platelet Count 272 10^3/uL (130-400); RBC 4.55 10^6/uL (3.93-5.22); RDW-SD 40.4 fL; WBC 7.31 10^3/uL (4.4-10.8)
== END 2024-04-20 16:49 | disposition home or self-care (01) ==
LOC: NCHCN 16:48
PROVIDERS: PCP Physician Assistant; Visit Provider Student in an Organized Health Care Education/Training Program
DX: R21 Rash and other nonspecific skin eruption (principal)
CPT/HCPCS: 87102; 87206; 85025; 87070

== ENCOUNTER → 2024-04-21 08:26 | Outpatient (BNVA) | payer MEDICARE, MEDICAID, SELFPAY | PROVIDERS: PCP Physician Assistant; Referring Provider Physician Assistant | DX: Z47.1 Aftercare following joint replacement surgery (principal); A46 Erysipelas; Z96.652 Presence of left artificial knee joint | CPT/HCPCS: 99214 ==

== ENCOUNTER 2024-04-28 22:34 | Outpatient (REF) | payer MEDICARE, MEDICAID, SELFPAY ==
[2024-05-27 07:57] LABS: Fungus Smear No Fungi Seen
== END 2024-04-28 22:35 | disposition home or self-care (01) ==
LOC: LBN 22:34
PROVIDERS: PCP Physician Assistant; Visit Provider Physician Assistant Medical
DX: R21 Rash and other nonspecific skin eruption (principal)
CPT/HCPCS: 87101; 87206

== ENCOUNTER 2024-05-12 11:17 | Outpatient (CLI) | payer MEDICARE, MEDICAID, SELFPAY ==
[2024-05-17 17:13] LABS: Chromium, Serum <0.1 ng/mL (<0.3)
== END 2024-05-12 11:18 | disposition home or self-care (01) ==
LOC: LBO 11:18
PROVIDERS: PCP Physician Assistant; Visit Provider Physician Assistant
DX: R21 Rash and other nonspecific skin eruption (principal)
CPT/HCPCS: 36415; 82495

== ENCOUNTER 2024-05-16 08:03 | Outpatient (CLI) | payer MEDICARE, MEDICAID, SELFPAY | END 2024-05-16 08:04 | disposition home or self-care (01) | LOC: DI.CARD 08:04 | PROVIDERS: PCP Physician Assistant; Visit Provider Registered Nurse | CPT/HCPCS: 93010 ==

== ENCOUNTER 2024-05-23 12:39 | Outpatient (CLI) | payer MEDICARE, MEDICAID, SELFPAY ==
--- NOTE | 2024-05-23 12:30 | RT.EKG_ITS ---
APPROVED REPORT Exam: Resting ECG Reason for Exam: baseline Patient Location: O HR:67 bpm ECG Measurements Heart Rate 67 AXIS NJ 168 P 30 QRSd 102 QRS -18 QT 441 T -11 QTc 466 Conclusion Sinus rhythm...normal P axis, V-rate 50- 99 Left ventricular hypertrophy...multiple LVH criteria
== END 2024-05-23 12:40 | disposition home or self-care (01) ==
LOC: DI.CARD 12:42
PROVIDERS: PCP Physician Assistant; Referring Provider Physician Assistant; Visit Provider Registered Nurse
DX: I10 Essential (primary) hypertension (principal)
CPT/HCPCS: 93010

== ENCOUNTER → 2024-05-23 12:39 | Outpatient (BNVA) | payer MEDICARE, MEDICAID, SELFPAY | PROVIDERS: PCP Physician Assistant; Referring Provider Physician Assistant; Visit Provider Registered Nurse | DX: I51.7 Cardiomegaly (principal); I10 Essential (primary) hypertension | CPT/HCPCS: 93005; 99214 ==

== ENCOUNTER 2024-08-09 04:51 | Emergency (ER) | payer MEDICARE, MEDICAID, SELFPAY ==
--- NOTE | 2024-08-09 04:53 | W.ED.GENAD ---
Discharge Plan Disposition Patient Disposition: Home Condition: Good Discharge Details Clinical Impression: Abdominal pain, Constipation Primary Care Provider: Cesar Klein ED Provider: Reese Teran [facility] Med[facility] and New Rx's Prescriptions: No Action carvedilol 25 mg tablet 25 mg PO BID Rx Instructions: must administer with a meal/food diazepam [Valium] 5 mg tablet 2.5 mg PO DAILY PRN potassium chloride 10 mEq Tablet Extended Release 10 meq PO PRN PRN hydrochlorothiazide 12.5 mg tablet 12.5 mg PO BID PRN (Reason: hypertension) Discharge Instructions Instructions: Constipation, Adult ED Additional Instructions: You were seen in the ED for abdominal pain and constipation. Your exam, labs, CT scan are reassuring. Since MiraLAX does not seem to be helping except just aching Ex-Lax as per package directions. Follow-up with primary care if not improving. Return to ED for significantly worsening pain, fever, persistent vomiting, other concerns. Referrals: Cesar Klein [Primary Care Provider, Medicine] Discharge Data Discharge Date/Time-TO BE ENTERED AT DEPARTURE: 08/09/24 07:44 HPI General Mode of arrival: ambulatory. Date/Time Provider Initiated Documentation: 08/09/24 04:53. Limitations to Documentation: no limitations. Information obtained by: patient and RN notes reviewed. HPI Narrative: Patient presents to ED with complaint of abdominal pain. Patient reports not having a bowel movement for about 4 days now despite taking MiraLAX. Denies any rectal pain. Has had worsening abdominal pain especially overnight. Denies any nausea or vomiting. Denies fever. Denies back pain. Does have history of UTIs, seen urgent care yesterday and had negative urinalysis. She reports that the pain was not as severe yesterday as it is this morning. She does have a history of hysterectomy but reports still having her gallbladder and her appendix. Related Data Home Medications ?Medication ?Instructions ?Recorded ?Confirmed potassium chloride 10 mEq 10 meq PO PRN PRN 09/24/20 08/09/24 tablet,extended release carvedilol 25 mg tablet 25 mg PO BID 07/09/22 08/09/24 diazepam 5 mg tablet (Valium) 2.5 mg PO DAILY PRN 09/08/23 08/09/24 hydrochlorothiazide 12.5 mg tablet 12.5 mg PO BID PRN hypertension 08/09/24 08/09/24 Allergies Allergy/AdvReac Type Severity Reaction Status Date / Time amlodipine (From [facility]) Allergy Severe Other (See Unverified 08/09/24 05:01 Comment) aspartame Allergy Severe anaphylaxis Verified 08/09/24 05:01 phenylalanine Allergy Anaphylaxis Verified 08/09/24 05:01 tramadol AdvReac Intermediate Other (See Verified 08/09/24 05:01 Comment) General SHOBHA: 3 Exam Narrative Exam Narrative: Const: WDWN elderly female in NAD. VS per triage. HEENT: NC/AT. Normal facial exam. Neck: Supple. Trachea midline. Lungs: Normal respiratory effort. Cor: RRR. Good radial pulses. GI: Soft/ND/NT. Neuro: A+O x 3. Normal speech, mentation, gait. Cranial nerves II - XII grossly intact. No gross motor or sensory deficit. Medical Decision Making Patient presenting to the ED with worsening abdominal pain over the last 4 days associated with constipation. She has taken MiraLAX without improvement. Denies any type of rectal pain or pressure. Was seen in urgent care yesterday and had negative urinalysis by her report. She is afebrile. She has a nontender abdomen though complains of pain across the lower abdomen. She is not having any nausea or vomiting but reports no flatus. She has had a hysterectomy in the past. Doubt obstruction but cannot completely rule out. No back pain so doubt pancreatitis. Not tender in any discrete area and given 4 day history of symptoms doubt this would be appendicitis or cholecystitis. She is reporting pain does seem improved now after taking acetaminophen prior to coming in. Will plan IV, labs, CT abdomen/pelvis. Patient's laboratory studies fairly unremarkable, white count is slightly elevated. Urine culture from yesterday still pending. CT scan without acute findings. Patient d/c home to follow up with PCP. Return precautions provided. Lab Data Lab results reviewed: Yes I reviewed the patient's lab results. Lab results narrative: see [facility] All Active Problems (Updated 08/09/24 @ 06:52 by Reese Teran MD) Constipation (Acute) Abdominal pain (Acute) Eczema (Acute) Asymmetrical sensorineural hearing loss (Acute) Arthritis of right knee (Acute) Closed fracture of left lateral malleolus (Acute 09/20/22) Anxiety (Chronic) Seborrheic keratoses (Acute) Hiatal hernia (Chronic) Irritable bowel syndrome with diarrhea (Acute) Internal hemorrhoids (Acute) Cholelithiasis (Acute) Ear anomaly (Acute) Lesion of skin of nose (Acute) Chronic cough (Acute) Vaginal dryness (Acute) Degeneration, intervertebral disc, cervical (Acute) Colonic diverticular disease (Acute) Asthma (Chronic) Migraine (Chronic) Chronic daily headache (Acute) Lip lesion (Acute) Low back pain (Acute) Cervicalgia (Acute) Anxiety disorder (Acute) Medical History Essential hypertension Hyperlipidemia Barretts esophagus Bilateral cataracts Surgical History History of total left knee replacement (01/06/24) History of tonsillectomy and adenoidectomy History of esophagogastroduodenoscopy (EGD) (~07/28/22) H/O colonoscopy Hx of hysterectomy Social History Smoking/Tobacco Use Status: Never Smoking risk assessment performed?: Yes Alcohol Intake: current Alcohol Intake frequency: holidays/special occasions only Alcohol type: beer Drug use: Never Substance use type: does not use Housing: house Current gender identity: female Do you feel safe at home: Yes Do you feel safe in your relationship?: Yes
[2024-08-09 04:56] VITALS: BP 179/99; PULSE 76; RESP 20; TEMP 37.6; O2SAT 97
[2024-08-09 04:59] VITALS: BP 179/99; PULSE 76; RESP 20; TEMP 37.6; O2SAT 97
--- NOTE | 2024-08-09 05:30 | DI.CT_ITS ---
Exam(s) CT ABDOMEN PELVIS WO EXAM: CT ABDOMEN PELVIS WO CLINICAL HISTORY: generalized abd pain. TECHNIQUE: Imaging Protocol: Axial computed tomography images with coronal and sagittal reformatted images were created and reviewed. Oral: / no COMPARISON: CT CT ABDOMEN PELVIS WO from 02/10/2024 FINDINGS: Lung Bases: No acute findings. The heart is enlarged. There is a small hiatal hernia. Liver: Normal density. No suspicious mass. Gallbladder and biliary tract: No radiodense calculus or biliary dilation. Pancreas: Normal density. No abnormal calcifications or inflammatory process. Spleen: Normal. Kidneys: Normal size, contour and axis. No radiodense stones. No obstructive uropathy. Stable right renal cyst. No suspicious masses seen. Adrenal glands: No masses seen. Lymph nodes: Within normal limits. Vasculature: Abdominal aorta non-dilated. Soft tissues: Unremarkable. Bladder: No wall thickening. No mass or calculi. Bowel: No obstruction or bowel wall thickening. Diverticulosis. No evidence of diverticulitis. Appendix appears normal. Peritoneal cavity: No ascites. No focal collection. No mesenteric inflammatory response. Reproductive organs: Hysterectomy. Bones: Scoliosis and degenerative changes. IMPRESSION: No acute abnormality in the abdomen or pelvis. The preliminary [facility] report was reviewed. RADIATION DOSE DELIVERED: 376.8mGy.cm Total DLP DATA REPOSITORY: All CT scans at this facility are submitted to the National Radiology Data Registry (NRDR) Dose Index Registry (DIR) with the [employer] (ACR). RADIATION OPTIMIZATION: All CT scans at this facility use at least one of these dose optimization techniques: automated exposure control; mA and/or kV adjustment per patient size (includes targeted exams where dose is matched to clinical indication); or iterative reconstruction.
[2024-08-09 05:54] LABS: Abs Immature Grans 0.02 10^3/uL (0.0-0.06); Absolute Basophil Count 0.04 10^3/uL (0.0-0.2); Absolute Lymphocyte Count 1.66 10^3/uL (1.2-3.4); Absolute Monocyte Count 0.88 10^3/uL (0.1-0.8); Absolute Neutrophil Count 9.31 10^3/uL (1.2-6.7); Basophils % 0.3 %; Eosinophils % 0.8 %; HCT 42.8 % (36.0-46.0); HGB 14.2 g/dL (11.2-15.7); Immature Grans % 0.2 %; Lymphocytes % 13.8 %; MCHC 33.2 % (32.0-36.0); MCV 91 fL (80-95); MPV 9.7 fL (8.0-11.0); Monocytes % 7.3 %; Neutrophils % 77.6 %; Platelet Count 268 10^3/uL (130-400); RBC 4.73 10^6/uL (3.93-5.22); RDW 11.9 % (11.7-14.6); RDW-SD 39.8 fL
[2024-08-09 06:07] LABS: Lipase 41 U/L (<78)
[2024-08-09 06:11] LABS: ALT 25 U/L (14-59); AST 17 U/L (15-37); Albumin 4.5 g/dL (3.4-5.0); Alkaline Phosphatase 68 U/L (46-116); Anion Gap 7.9 mmol/L (3-11); BUN 15 mg/dL (7-18); Bilirubin, Total 0.9 mg/dL (0.2-1.0); CO2 30.1 mmol/L (21.0-32.0); CREATININE 0.6 mg/dL (0.55-1.02); Calcium 10.4 mg/dL (8.5-10.1); Chloride 103 mmol/L (98-107); Estimated GFR 91.82 (mL/min/1.73m2); Glucose 120 mg/dL (74-106); Potassium 3.9 mmol/L (3.5-5.1); Sodium 141 mmol/L (136-145); Total Protein 7.9 g/dL (6.4-8.2)
--- NOTE | 2024-08-09 07:29 | DI.[facility]_ITS ---
PROCEDURE INFORMATION: Exam: CT Abdomen And Pelvis Without Contrast Exam date and time: 08/09/2024 5:44 AM Age: 79 years old Clinical indication: Abdominal pain; Generalized; Prior surgery; Surgery date: 6+ months; Surgery type: Hysterectomy; Abd pain, constipation TECHNIQUE: Imaging protocol: Computed tomography of the abdomen and pelvis without contrast. Radiation optimization: All CT scans at this facility use at least one of these dose optimization techniques: automated exposure control; mA and/or kV adjustment per patient size (includes targeted exams where dose is matched to clinical indication); or iterative reconstruction. COMPARISON: CT ABDOMEN PELVIS WO 02/10/2024 10:39 PM FINDINGS: Limitations: Evaluation of the solid and vascular structures is somewhat limited by lack of IV contrast. Lungs: There is mild atelectasis and scarring at the lung bases. Diaphragm: A small hiatal hernia is again present. Liver: Grossly unremarkable. Gallbladder and biliary ducts: No gallstones are evident, but ultrasound would be more sensitive. No gross biliary ductal dilatation. Pancreas: Grossly unremarkable. Spleen: Grossly unremarkable. Adrenal glands: Grossly unremarkable. Kidneys and ureters: There is no hydronephrosis, and no renal or ureteral calculus is identified. The right kidney again contains a cyst. It appears otherwise grossly unremarkable. The left kidney is grossly unremarkable in appearance. Stomach and bowel: The unopacified small bowel is not significantly distended to suggest obstruction. There is again colonic diverticulosis without evidence for diverticulitis. Appendix: The appendix appears normal where at least partially visualized, and there is no inflammatory change in the region. Intraperitoneal space: No free air or significant free fluid. Vasculature: Unremarkable. No abdominal aortic aneurysm. Lymph nodes: No gross pathologic lymphadenopathy. Urinary bladder: Grossly unremarkable. Reproductive: There has again been hysterectomy. No gross adnexal abnormality is apparent, but ultrasound would be more appropriate in this regard. Bones/joints: Degenerative changes again involve the spine, sacroiliac joints and hips. Soft tissues: Unremarkable. IMPRESSION: 1. No hydronephrosis, renal or ureteral calculus or other gross acute abnormality identified. 2. Colonic diverticulosis without evidence for diverticulitis, as on 02/10/2024. 3. Persistent small hiatal hernia. COMMENTS: Depending on suspected etiology of symptoms, consider a targeted ultrasound or contrast enhanced exam. Dictated and Authenticated by: Duran Mora MD. Orderin Jeffry Leigh MD
--- NOTE | 2024-08-09 07:37 | W.EDPROG ---
Date of service: 08/09/24 Time of Service: 07:37 Medical Decision Making This patient was in the department at the start of my shift. In brief she is a 79-year-old with constipation pending a CT scan. Her CT scan was read as reassuring. She had a known hiatal hernia. She she had diverticulosis without diverticulitis. I met with her to go over her reassuring results. She was curious about her urinalysis. I inquired as to whether or not she was having dysuria or frequency. She denied both of these. She reported that she had gone to express care yesterday and had some occult blood. She went to express care [place] and unfortunately the results of her urinalysis are not available in our EMR. I offered to send another urinalysis for her. She requested discharge. She had no ureterallithiasis nor any bladder masses. We discussed that she should return if she developed worsening abdominal pain nausea or vomiting or any dysuria or frequency. She understood her return indications and was discharged with an empiric trial of expectant outpatient management. Discharge Plan Disposition Patient Disposition: Home Condition: Good Discharge Details Clinical Impression: Abdominal pain, Constipation Primary Care Provider: Cesar Klein ED Provider: Reese Teran [place] Meds and New Rx's Prescriptions: No Action carvedilol 25 mg tablet 25 mg PO BID Rx Instructions: must administer with a meal/food diazepam [Valium] 5 mg tablet 2.5 mg PO DAILY PRN potassium chloride 10 mEq Tablet Extended Release 10 meq PO PRN PRN hydrochlorothiazide 12.5 mg tablet 12.5 mg PO BID PRN (Reason: hypertension) Discharge Instructions Instructions: Constipation, Adult ED Additional Instructions: You were seen in the ED for abdominal pain and constipation. Your exam, labs, CT scan are reassuring. Since MiraLAX does not seem to be helping except just aching Ex-Lax as per package directions. Follow-up with primary care if not improving. Return to ED for significantly worsening pain, fever, persistent vomiting, other concerns. Referrals: Cesar Klein [Primary Care Provider, Medicine]
== END 2024-08-09 07:44 | disposition home or self-care (01) ==
PROVIDERS: Emergency Provider Emergency Medicine; PCP Physician Assistant
DX: K59.00 Constipation, unspecified (principal); R10.84 Generalized abdominal pain; I10 Essential (primary) hypertension; E78.5 Hyperlipidemia, unspecified; Z90.710 Acquired absence of both cervix and uterus
CPT/HCPCS: 00123; 36415; 80053; 83690; 99284; 74176; 85025

== ENCOUNTER 2024-08-12 11:34 | Outpatient (REF) | payer MEDICARE, MEDICAID, SELFPAY | END 2024-08-12 11:35 | disposition home or self-care (01) | LOC: LBN 11:34 | PROVIDERS: PCP Physician Assistant; Visit Provider Nurse Practitioner Family | DX: R10.2 Pelvic and perineal pain (principal) | CPT/HCPCS: 87077; 87086; 87186 ==

== ENCOUNTER 2024-10-10 03:25 | Outpatient (CLI) | payer MEDICARE, MEDICAID, SELFPAY ==
--- NOTE | 2024-10-10 | DI.RAD_ITS ---
Exam(s) XR KNEE LT 3V AP,LAT,LEANN EXAM: XR KNEE LT 3V AP,LAT,LEANN CLINICAL HISTORY: LT KNEE JOINT PAIN, M25.562. TECHNIQUE: 2D digital imaging was performed. Three images were obtained. AP, PA tunnel and lateral views were obtained. COMPARISON: CR XR KNEE LT 1V from 01/21/2024 CR XR STANDING ALIGNMENT from 01/21/2024 FINDINGS: BONES: There are stable post operative changes of a left total knee arthroplasty present. No fracture or dislocation. JOINTS: The orthopedic hardware is in good position. No evidence of hardware loosening. SOFT TISSUE: Normal. IMPRESSION: Stable left total knee arthroplasty. DATA REPOSITORY: RADIATION DOSE DELIVERED:
== END 2024-10-10 03:45 ==
LOC: DI 03:25
PROVIDERS: PCP Physician Assistant; Visit Provider Physician Assistant
DX: M25.562 Pain in left knee (principal)
CPT/HCPCS: 73562

== ENCOUNTER 2025-01-10 12:07 | Emergency (ER) | payer OTHER, MEDICARE, MEDICAID, SELFPAY ==
[2025-01-10 12:00] VITALS: BP 177/116; PULSE 68; RESP 16; TEMP 36.9; O2SAT 97
--- NOTE | 2025-01-10 12:00 | RT.EKG_ITS ---
APPROVED REPORT Exam: Resting ECG Reason for Exam: chest pain Patient Location: E HR:68 bpm ECG Measurements Heart Rate 68 AXIS AR 156 P 35 QRSd 107 QRS -24 QT 435 T 30 QTc 465 Conclusion Sinus rhythm...normal P axis, V-rate 60- 99 Probable left ventricular hypertrophy...multiple LVH criteria No STEMI
--- NOTE | 2025-01-10 13:51 | DI.CT_ITS ---
Exam(s) CT CHEST/ABD/PEL WO EXAM: CT CHEST/ABD/PEL WO CLINICAL HISTORY: trauam, complain of chest upper ab pain. TECHNIQUE: Imaging Protocol: Axial computed tomography images with coronal and sagittal reformatted images were created and reviewed. Computer aided detection (CAD) was utilized. COMPARISON: CT CT ABDOMEN PELVIS WO from 02/10/[address] ABDOMEN PELVIS WO from 08/09/2024 FINDINGS: The lack of IV contrast does limit evaluation of the examination particularly the abdominal pelvic organs. CHEST: Thyroid: Unremarkable as visualized. Tracheobronchial tree: Patent where visualized. Mediastinum and Peyton: No dominant adenopathy or fluid collection. The esophagus is grossly unremarkable. There is a small hiatal hernia. Pulmonary parenchyma: No consolidation or dominant measurable mass. There is atelectasis in the lung bases. There are no focal consolidating infiltrates present. Pleura: No effusion or pneumothorax. Lymph nodes: Within normal limits. Aorta: The ascending thoracic aorta measures 3.9 x 3.8 cm. Atherosclerotic calcification is present. Heart: Cardiomegaly. No coronary artery calcifications. There is no pericardial effusion. Bones: No acute abnormalities. There are no displaced rib fractures. There are no acute fractures seen in the thoracic spine. Age-appropriate degenerative changes are present. There is an acute depressed manubrial fracture. This is best appreciated on the sagittal view. (Series 7, image 43). Soft tissues: Unremarkable. ABDOMEN: Liver: Normal density. No measurable mass. Gallbladder and biliary tract: There is no evidence of cholelithiasis. There is stable mild dilatation of the extrahepatic bile duct. Pancreas: Normal density, no abnormal calcifications or inflammatory process. Spleen: Normal. Kidneys: Normal size, contour and axis. No radiodense stones or obstructive uropathy. There is a stable cyst on the right kidney. No follow-up is recommended. Adrenal glands: No masses seen. Aorta: Abdominal portion non-dilated. Lymph nodes: Within normal limits. PELVIS: Bladder: Symmetric distention, no gross wall thickening. Bowel: There is diverticulosis of the colon without evidence of acute diverticulitis. There is no evidence of bowel obstruction or bowel wall thickening. The stomach is incompletely distended limiting evaluation. There is no evidence of appendicitis. Peritoneal cavity: No ascites, collection or mesenteric inflammatory response. Bones: Within normal limits. There are no acute fracture seen in the lumbosacral spine. Age-appropriate degenerative changes are present. There is a right convex lumbar scoliosis. Reproductive organs: Within normal limits. Soft tissues: Unremarkable. IMPRESSION: 1. Examination is limited due to lack of IV contrast material. 2. Mildly depressed manubrial fracture. There is no evidence of a mediastinal hematoma. 3. No acute pulmonary process, pleural effusion or pneumothorax. 4. No acute fracture or subluxation is seen in the thoracic or lumbar spine. 5. There is no acute abdominal or pelvic process. 6. There is colonic diverticulosis without evidence of acute diverticulitis. RADIATION DOSE DELIVERED: 546.43mGy.cm Total DLP 546.43mGy.cm Total DLP DATA REPOSITORY: All CT scans at this facility are submitted to the National Radiology Data Registry (NRDR) Dose Index Registry (DIR) with the [employer] ([employer]). RADIATION OPTIMIZATION: All CT scans at this facility use at least one of these dose optimization techniques: automated exposure control; mA and/or kV adjustment per patient size (includes targeted exams where dose is matched to clinical indication); or iterative reconstruction.
--- NOTE | 2025-01-10 13:51 | DI.CT_ITS ---
Exam(s) CT HEAD CERVICAL SPINE WO EXAM: CT HEAD CERVICAL SPINE WO CLINICAL HISTORY: Trauma. TECHNIQUE: Imaging Protocol: Axial computed tomography images with coronal and sagittal reformatted images were created and reviewed COMPARISON: No exams were available for comparison FINDINGS: CT Head: Ventricles and Extra axial spaces: Normal in size and morphology for the patient's age. Hemorrhage: None. Cerebral parenchyma: There is age-appropriate cerebral atrophy and small vessel ischemic disease. No acute territorial infarct or mass effect is seen. Midline shift: None. Brainstem/Cerebellum: Normal. Calvarium: Normal. Visualized Paranasal sinuses/Mastoids: Clear. Soft Tissues: Unremarkable. CT Cervical Spine: Bones: No acute fracture or subluxation. There are degenerative changes seen in the cervical spine. There is anterolisthesis of C3 on C4 and C4 on C5. There is mild reversal of the normal cervical lordosis. This all appears to be chronic and related to degenerative changes. Soft Tissues: Unremarkable. Lung Apices: Clear. IMPRESSION: 1. No acute intracranial process. 2. No acute fracture or subluxation in the cervical spine. RADIATION DOSE DELIVERED: 1,085.29mGy.cm Total DLP DATA REPOSITORY: All CT scans at this facility are submitted to the National Radiology Data Registry (NRDR) Dose Index Registry (DIR) with the [employer] ([employer]). RADIATION OPTIMIZATION: All CT scans at this facility use at least one of these dose optimization techniques: automated exposure control; mA and/or kV adjustment per patient size (includes targeted exams where dose is matched to clinical indication); or iterative reconstruction.
[2025-01-10] MEDS: Acetaminophen 500 MG TAB 1000 MG PO (14:04)
[2025-01-10 14:12] LABS: Glucose Negative (Negative)
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
--- NOTE | 2025-01-10 14:44 | DI.CT_ITS ---
Exam(s) CT CHEST/ABD/PEL W EXAM: CT CHEST/ABD/PEL W CLINICAL HISTORY: Trauma. TECHNIQUE: Imaging Protocol: Axial computed tomography images with coronal and sagittal reformatted images were created and reviewed. Computer aided detection (CAD) was utilized. CONTRAST MATERIAL: Intravenous: Omnipaque 350 Contrast volume:75 ml Oral: no COMPARISON: CT CT CHEST/ABD/PEL WO from 01/10/2025 FINDINGS: CHEST: Pulmonary parenchyma: There dependent changes at the lung bases. No consolidation. No dominant measurable mass. Tracheobronchial tree: No bronchiectasis. No mucous plugging.No bronchial wall thickening. Pleura: No effusion or pneumothorax. Mediastinum: Within normal limits. Pulmonary arteries: No visible emboli. Cardiovascular: The heart is enlarged. No pericardial effusion. Thoracic aorta mildly dilated to 3.9 cm. Bones: There is a nondisplaced fracture seen extending transversely through the lower 3rd of the manubrium. There is no surrounding hematoma. No active contrast extravasation. No lytic or blastic lesions. No compression fractures. Soft tissues: Unremarkable. ABDOMEN and PELVIS: Liver: Normal density. No suspicious mass. Gallbladder and biliary tract: No evidence of stones or wall thickening. Stable mild biliary dilatation. Pancreas: Normal density, no abnormal calcifications or inflammatory process. Spleen: Normal. Kidneys: Normal size, contour and axis. No radiodense stones. No obstructive uropathy. A cyst is again noted at the mid to lower pole of the anterior right kidney. No follow-up recommended. No suspicious masses seen. Adrenal glands: No masses seen. Aorta: Abdominal portion non-dilated. Lymph nodes: Within normal limits. Soft tissues: Unremarkable. Bladder: Unremarkable. Bowel: Prominent diverticulosis is noted, greatest in the sigmoid colon. No evidence of diverticulitis. The appendix is normal. No obstruction or bowel wall thickening. Peritoneal cavity: No ascites. No focal collection. No mesenteric inflammatory response. No free air. Bones: Scoliosis and degenerative changes. Reproductive organs: Hysterectomy. IMPRESSION: Nondisplaced manubrial fractures again noted. There is no significant surrounding hematoma or evidence of active contrast extravasation. No acute abnormality in the abdomen or pelvis. RADIATION DOSE DELIVERED: Total DLP DATA REPOSITORY: All CT scans at this facility are submitted to the National Radiology Data Registry (NRDR) Dose Index Registry (DIR) with the [employer] (ACR). RADIATION OPTIMIZATION: All CT scans at this facility use at least one of these dose optimization techniques: automated exposure control; mA and/or kV adjustment per patient size (includes targeted exams where dose is matched to clinical indication); or iterative reconstruction.
[2025-01-10 15:00] VITALS: BP 173/91; PULSE 76; RESP 16; O2SAT 99
[2025-01-10 15:24] LABS: BE (Venous) 4 mmol/L (-2-3); HCO3 (Venous) 29 mmol/L (23-28); O2 Sat (Venous) 62 %; TCO2 (Venous) 26 mmol/L (24-29); pCO2 (Venous) 51 mmHg (41-51); pO2 (Venous) 34 mmHg
[2025-01-10 15:33] LABS: Abs Immature Grans 0.06 10^3/uL (0.0-0.06); HCT 31.5 % (36.0-46.0); HGB 10.6 g/dL (11.2-15.7); Immature Grans % 0.6 %; MCH 30.8 pg (27.0-33.0); MCHC 33.7 % (32.0-36.0); MCV 92 fL (80-95); MPV 10.0 fL (8.0-11.0); Platelet Count 191 10^3/uL (130-400); RBC 3.44 10^6/uL (3.93-5.22); RDW 11.9 % (11.7-14.6); RDW-SD 40.3 fL; WBC 9.52 10^3/uL (4.4-10.8)
[2025-01-10] MEDS: Omnipaque 350 MG/ML 100 ML BTL IJ (15:37)
[2025-01-10] MEDS: Normal Saline - Diluent 50 ML VIAL IJ (15:37)
[2025-01-10] MEDS: Normal Saline Flush 10 ML SYR IVP (15:51)
[2025-01-10 15:53] LABS: Lipase 34 U/L (<53)
[2025-01-10 15:54] LABS: ALT 15 U/L (10-49); AST 27 U/L (<34); Albumin 4.6 g/dL (3.2-5.0); Alkaline Phosphatase 63 U/L (46-116); Anion Gap 5.2 mmol/L (3-11); BUN 15 mg/dL (9-23); Bilirubin, Total 0.70 mg/dL (0.2-1.2); CO2 27.8 mmol/L (20.0-31.0); Calcium 10.4 mg/dL (8.3-10.6); Chloride 109 mmol/L (98-107); Glucose 100 mg/dL (74-106); Potassium 4.0 mmol/L (3.5-5.1); Sodium 142 mmol/L (136-145); Total Protein 7.3 g/dL (5.7-8.2)
[2025-01-10 15:54] LABS: INR 1.0 (0.9-1.1); PTT Activated 23.8 sec (20.6-30.2); Prothrombin Time 10.5 sec (9.1-11.1)
[2025-01-10 16:18] LABS: Troponin I 80 ng/L (<35)
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
== END 2025-01-10 18:35 | disposition short-term general hospital (02) ==
PROVIDERS: Emergency Provider General Practice; PCP Physician Assistant
DX: S22.21XA Fracture of manubrium, initial encounter for closed fracture (principal); V89.2XXA Person injured in unspecified motor-vehicle accident, traffic, initial encounter; R79.89 Other specified abnormal findings of blood chemistry
CPT/HCPCS: 99285 ×2; 71250; 74177; 80053; 82805; 83690; 86850; 86900; 86901; 93005; 99284; 70450; 71260; 72125; 74176; 81003; 83605; 84484; 85025; 85610; 85730; 93010; J3490

== ENCOUNTER → 2025-01-30 13:34 | Outpatient (CLI) | payer MEDICARE, MEDICAID, SELFPAY ==
--- NOTE | 2025-01-30 14:15 | DI.RAD_ITS ---
Exam(s) XR RIBS RT PA CHEST 3V CLINICAL HISTORY: RT SIDED CHEST PAIN, R07.9,RT THORACIC RIB PAIN, S/P RECENT FALL, RECENT FX. COMPARISON: CT CT CHEST/ABD/PEL W from 01/10/2025 TECHNIQUE:: PA and lateral views of the chest and 2 views of the right ribs were performed. FINDINGS: LUNGS:Clear. No pleural abnormality seen. HEART: Enlarged. MEDIASTINUM: Normal. BONES: A fracture is again noted involving the manubrium. A BB marker was placed over the area of patient pain at the anterior medial upper right ribs. No displaced rib fracture is seen. No bony destructive lesion is seen. Scoliosis is noted at the thoracolumbar junction. No compression fractures. IMPRESSION: 1. No evidence of rib fracture. Manubrial fracture again noted. 2. No acute pulmonary findings.
== END ==
LOC: DI 13:35
PROVIDERS: PCP Physician Assistant; Visit Provider Physician Assistant
DX: R07.9 Chest pain, unspecified (principal)
CPT/HCPCS: 71046; 71100